=== PATIENT | male | born 1930 | race Caucasian/White ===

== ENCOUNTER → 2016-08-05 | Outpatient (CLI) | payer MEDICARE, OTHER ==
--- OUTSIDE RECORDS SUMMARY | 2016-08-05 16:00 | XMS REPORT | Continuity of Care Document ---
Author Author [facility] Organization [facility] Address Unknown Phone Unavailable Allergies Medications Problems Date Dx Coded Attending Type Code Diagnosis Diagnosed By 05/10/2015 ANAMIKA GRIMES MD Ot G46.1 05/10/2015 ANAMIKA GRIMES MD Ot G62.9 05/10/2015 ANAMIKA GRIMES MD Ot I10 05/25/2015 ANAMIKA GRIMES MD Ot G46.1 05/25/2015 ANAMIKA GRIMES MD Ot G62.9 05/25/2015 ANAMIKA GRIMES MD Ot I10 06/09/2015 ANAMIKA GRIMES MD Ot G46.1 06/09/2015 ANAMIKA GRIMES MD Ot G62.9 06/09/2015 ANAMIKA GRIMES MD Ot I10 06/22/2015 ANAMIKA GRIMES MD Ot G46.1 06/22/2015 ANAMIKA GRIMES MD Ot G62.9 06/22/2015 ANAMIKA GRIMES MD Ot I10 08/18/2015 ANAMIKA GRIMES MD Ot G46.1 08/18/2015 ANAMIKA GRIMES MD Ot G62.9 08/18/2015 ANAMIKA GRIMES MD Ot I10 09/07/2015 STERLING WATT APRN Ot R05 09/07/2015 STERLING WATT APRN Ot R53.83 09/14/2015 STERLING WATT APRN Ot R05 09/14/2015 STERLING WATT APRN Ot R53.83 Procedures Results Encounters ACCT No. Visit Date/Time Discharge Status Pt. Type Provider Facility Loc./Unit Complaint [id number] 05/09/2015 07:21:00 2014 23:59:59 CLS Outpatient ANAMIKA GRIMES MD [facility] CARD [id number] 08/18/2015 09:02:00 ACT Outpatient STERLING WATT APRN [facility] RAD
--- NOTE | 2016-08-05 16:32 | Diagnostic Imaging Report ---
EXAMINATION: PA and lateral views of the chest. INDICATION: Cough and wheezing. FINDINGS: The lungs are hyperinflated with no focal infiltrate. There is minimal interstitial scarring in the bases. The heart size is borderline enlarged. No effusion or pneumothorax. The mediastinum and tresa appear unremarkable. There are degenerative changes in the thoracic spine and suggestion of a mid thoracic spine chronic compression fracture without change from 08/18/2015. IMPRESSION: No acute process. Report given to nurse (Flavia) at 4:32 p.m. 08/05/2016/cb Dictated by: Dictated on workstation # [id number]
== END ==
LOC: RAD 15:57
PROVIDERS: ATTEND Internal Medicine
DX: R05 Cough (principal); R06.2 Wheezing
CPT/HCPCS: 71020

== ENCOUNTER → 2017-04-16 | Outpatient (CLI) | payer MEDICARE, OTHER ==
--- NOTE | 2017-04-16 11:13 | Diagnostic Imaging Report ---
EXAMINATION: Renal arterial duplex ultrasound. INDICATION: Hypertension. FINDINGS: The right kidney is 11.5 and the left kidney is 11.0 cm in length. There is no hydronephrosis or focal lesion. There is a simple appearing cyst measuring 2.3 cm in the lower pole of the right kidney. There is a 3.7 cm simple cyst in the left kidney. Along the deep cortex of the left kidney, there is a hypoechoic lesion measuring 3.3 x 2.8 cm. It has through transmission and no internal vascularity, in favor of a complicated cyst. The left renal artery proximal and mid segments are obscured. The distal segment velocity is 61 cm/s. The right renal artery velocities are 102, 104, and 72 cm/s from proximal to distal. The resistive index is in the range of 0.66 to 0.7 on the right and 0.7 to 0.71 on the left. IMPRESSION: 1. The proximal and mid segments of the left renal artery are obscured. 2. Bilateral renal lesions with one indeterminate hyperechoic mass favored to be a complicated cyst in the deep cortex of the left kidney. A renal mass protocol CT without and with intravenous contrast would be recommended for better evaluation. Dictated by: Dictated on workstation # [id number]
== END ==
LOC: RAD 09:25
PROVIDERS: ATTEND Physician Assistant
DX: N28.89 Other specified disorders of kidney and ureter (principal); N28.1 Cyst of kidney, acquired
CPT/HCPCS: 93975

== ENCOUNTER → 2017-04-21 | Outpatient (CLI) | payer MEDICARE, OTHER ==
[~2017-04-21] MED LIST: CATHETER FLUSH 10 ML SYR IV PRN; IOHEXOL 350 MG/ML 100 ML (OMNIPAQUE 350) VIAL IV ONE; NS 100 ML (IVPB) BAG IV ONE
[2017-04-21 08:49] LABS: BLOOD UREA NITROGEN 17 MG/DL (7-18); BUN/CREATININE RATIO 15; CREATININE SERUM 1.15 MG/DL (0.60-1.30); GFR ESTIMATED > 60
--- NOTE | 2017-04-21 17:54 | Diagnostic Imaging Report ---
PROCEDURE: CT abdomen with and without contrast. TECHNIQUE: Multiple contiguous axial CT images of the abdomen were obtained prior to and after intravenous administration of iodinated contrast. INDICATION: Renal mass. 100 mL of Omnipaque 350 is administered intravenously. FINDINGS: The lung bases appear unremarkable. Prominent coronary artery calcifications are seen in the left coronary artery distribution. The liver, the gallbladder, the spleen, the adrenals, and the pancreas appear unremarkable. The kidneys have symmetric enhancement and contrast excretion. There is no hydronephrosis. Bilateral renal cysts are seen up to 3.7 cm in size with no enhancing or solid components noted. These lesions were not well evaluated on prior ultrasound from 04/16/2017 due to their depth, especially the medial cystic lesion in the left kidney. CT evaluation, however, clearly demonstrates no concerning solid component. The unenhanced phase demonstrates no kidney stones. The abdominal aorta is normal in caliber. No para-aortic significantly enlarged lymph node seen. No fluid collection is noted. The osseous structures demonstrate degenerative changes in the lower thoracic and in the lower lumbar spine. IMPRESSION: Simple-appearing renal cysts. No suspicious mass. Dictated by: Dictated on workstation # [id number]
== END ==
LOC: RAD 08:14
PROVIDERS: ATTEND Internal Medicine Cardiovascular Disease
DX: N28.1 Cyst of kidney, acquired (principal)
CPT/HCPCS: 36415; 74170; 82565; 84520

== ENCOUNTER → 2017-05-12 | Outpatient (CLI) | payer MEDICARE, OTHER | LOC: EDBD → CARD 11:48 | PROVIDERS: ATTEND Physician Assistant | DX: I10 Essential (primary) hypertension (principal); E78.2 Mixed hyperlipidemia; G62.9 Polyneuropathy, unspecified | CPT/HCPCS: 93306 ==

== ENCOUNTER → 2017-07-31 | Outpatient (CLI) | payer MEDICARE, OTHER ==
--- NOTE | 2017-07-31 16:10 | Diagnostic Imaging Report ---
INDICATION: Lower respiratory infection. PA and lateral chest. FINDINGS: Heart size and pulmonary vascularity are normal. Lungs are clear. There are no effusions or pneumothoraces. IMPRESSION: Negative chest. Dictated by: Dictated on workstation # [id number]
== END ==
LOC: RAD 15:36
PROVIDERS: ATTEND Internal Medicine
DX: J22 Unspecified acute lower respiratory infection (principal)
CPT/HCPCS: 71046

== ENCOUNTER → 2017-12-11 | Outpatient (CLI) | payer MEDICARE, OTHER ==
--- NOTE | 2017-12-11 10:36 | Diagnostic Imaging Report ---
INDICATION: Wheezing and cough x 2 weeks. TIME OF EXAMINATION: 9:19 AM. COMPARISON: 07/31/2017. FINDINGS: The heart size is normal. The descending thoracic aorta is ectatic and tortuous. The pulmonary vascularity is normal. No pulmonary infiltrates are identified. No pleural effusion is identified. There is no pneumothorax. IMPRESSION: No acute cardiopulmonary process is detected. Dictated by: Dictated on workstation # [id number]
== END ==
LOC: RAD 08:47
PROVIDERS: ATTEND Physician Assistant
DX: R05 Cough (principal)
CPT/HCPCS: 71046

== ENCOUNTER → 2018-02-27 | Outpatient (CLI) | payer MEDICARE, OTHER ==
--- NOTE | 2018-02-27 15:49 | Diagnostic Imaging Report ---
Indication: Neck pain. Three views were obtained. Findings: There is straightening of the normal cervical lordosis. The vertebral body heights are well maintained. There is marked degenerative disease at C5-6, C6-7. No fracture or traumatic subluxation. The prevertebral soft tissues are within normal limits. The odontoid is intact and lateral masses are well aligned. Impression: Moderate cervical spondylosis and focal degenerative disease at C5-6 and C6-7. Dictated by: Dictated on workstation # [id number]
--- NOTE | 2018-02-27 15:50 | Diagnostic Imaging Report ---
Indication: Back pain. Findings: There is grade 2 anterolisthesis of L4 and L5. This appears be on a degenerative basis. There is degenerative disc disease at L4-5 and L5-S1. The vertebral body heights are well maintained. There is lower lumbar hypertrophic degenerative facet disease. No fracture or traumatic subluxation. Impression: Degenerative disease at L4-5 and L5-S1 with grade 2 degenerative anterolisthesis of L4 and L5. Dictated by: Dictated on workstation # [id number]
== END ==
LOC: RAD 11:06
PROVIDERS: ATTEND Chiropractor
DX: M47.816 Spondylosis without myelopathy or radiculopathy, lumbar region (principal); M43.16 Spondylolisthesis, lumbar region; M47.812 Spondylosis without myelopathy or radiculopathy, cervical region; M99.04 Segmental and somatic dysfunction of sacral region; M99.03 Segmental and somatic dysfunction of lumbar region; M99.01 Segmental and somatic dysfunction of cervical region; M99.02 Segmental and somatic dysfunction of thoracic region
CPT/HCPCS: 72040; 72100

== ENCOUNTER → 2018-04-01 | Outpatient (CLI) | payer MEDICARE, OTHER ==
[~2018-04-01] VITALS: Ht 177.8 cm; Wt 72.6 kg
[~2018-04-01] MED LIST changes: -IOHEXOL 350 MG/ML 100 ML (OMNIPAQUE 350) VIAL IV ONE; -NS 100 ML (IVPB) BAG IV ONE; +REGADENOSON 0.4 MG/5 ML SYR (LEXISCAN) IV ONE
[2018-04-01 10:36] VITALS: BP 147/82
--- NOTE | 2018-04-02 07:25 | STRESS TEST ---
DATE OF SERVICE: 04/01/2018 LEXISCAN MYOVIEW STRESS TEST REPORT REFERRING PHYSICIAN: Dr. Emerson Nuñez Baseline heart rate is 62. Baseline blood pressure is 165/97. Baseline EKG is sinus rhythm with no ischemic changes. In summary, the patient was injected with 10.34 mCi of technetium-99 Myoview and the resting images were obtained. Then, the patient received 0.4 mg of Lexiscan followed by 29.7 mCi of technetium-99 Myoview. Throughout the test, there were no EKG changes. The resting and stress images were reviewed and compared in the short axis, horizontal long axis and vertical long axis views. Review of the images showed diaphragmatic attenuation with mild decreased uptake at the mid to apical inferior lateral and anterior lateral wall. SSS is 8, SDS is 8 and TID value 1.11. On the gated images, the left ventricle appeared to be in normal size with normal contractility and calculated ejection fraction is 63%. CONCLUSION: 1. The patient tolerated the Lexiscan well. 2. Diaphragmatic attenuation with mild decreased uptake at the mid to apical inferolateral and anterolateral wall with mild reversibility. 3. Normal left ventricular size with normal contractility and calculated ejection fraction is 63%. Job ID: [id number] DocumentID: [id number] Dictated Date: 04/02/2018 06:45:15 Media Services Coordinator Date: 04/02/2018 07:24:20 Dictated By: ANAMIKA GRIMES MD
== END ==
LOC: CARD 07:52
PROVIDERS: ATTEND Physician Assistant
DX: I10 Essential (primary) hypertension (principal); E78.2 Mixed hyperlipidemia; G62.9 Polyneuropathy, unspecified
CPT/HCPCS: 78452; 93017

== ENCOUNTER 2018-04-08 06:52 | Day surgery (SDC) | payer MEDICARE, OTHER ==
[2018-04-08] VITALS (7 sets, daily range): BP systolic 105–154; BP diastolic 74–95
[~2018-04-08] VITALS: Ht 175.3 cm; Wt 70.8 kg
[2018-04-08] MEDS ORDERED: NS IV 1000 ML 1,000 ML ONE (07:00)
[2018-04-08] MEDS ORDERED: LIDOCAINE 1% INJ 20 ML 20 ML VIAL ONE (07:00)
[2018-04-08] MEDS ORDERED: HEParin (CATH LAB) 2,000 ML IV ONE (07:00)
--- OUTSIDE RECORDS SUMMARY | 2018-04-08 07:02 | XMS REPORT | Continuity of Care Document ---
Author Author [facility] Organization [facility] Address Unknown Phone Unavailable Allergies Active Description Code Type Severity Reaction Onset Reported/Identified Relationship to Patient Clinical Status Yes No Allergy Information Available [id number] Drug Allergy Unknown N/A 2016 Medications There is no data. 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 08/05/2016 ANAMIKA GRIMES MD Ot G62.9 POLYNEUROPATHY, UNSPECIFIED 08/05/2016 ANAMIKA GRIMES MD Ot I10 ESSENTIAL (PRIMARY) HYPERTENSION 08/05/2016 ALYSA, STERLING R ORTHOPEDICS PEDIATRIC PHYSICIAN Ot R05 COUGH 08/05/2016 STERLING WATT R ORTHOPEDICS PEDIATRIC PHYSICIAN Ot R53.83 OTHER FATIGUE 09/09/2016 VEL DE LA GARZA MD Ot R05 COUGH 09/09/2016 VEL DE LA GARZA MD Ot R06.2 WHEEZING 04/11/2017 TIFFANY SUAREZTH K Ot I10 ESSENTIAL (PRIMARY) HYPERTENSION 04/16/2017 ANAMIKA GRIMES MD Ot 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 04/16/2017 ANAMIKA GRIMES MD Ot G62.9 POLYNEUROPATHY, UNSPECIFIED 04/16/2017 ANAMIKA GRIMES MD Ot I10 ESSENTIAL (PRIMARY) HYPERTENSION 04/16/2017 STERLING WATT R ORTHOPEDICS PEDIATRIC PHYSICIAN Ot R05 COUGH 04/16/2017 STERLING WATT R ORTHOPEDICS PEDIATRIC PHYSICIAN Ot R53.83 OTHER FATIGUE 04/16/2017 VEL DE LA GARZA MD Ot R05 COUGH 04/16/2017 VEL DE LA GARZA MD Ot R06.2 WHEEZING 04/16/2017 TIFFANY SUAREZTH K Ot I10 ESSENTIAL (PRIMARY) HYPERTENSION 04/17/2017 YADIRA SUAREZ K Ot N28.1 CYST OF KIDNEY, ACQUIRED 04/17/2017 YADIRA SUAREZ K Ot N28.89 OTHER SPECIFIED DISORDERS OF KIDNEY AND 05/01/2017 YADIRA SUAREZ Ot N28.1 CYST OF KIDNEY, ACQUIRED 05/01/2017 TIFFANY SUAREZTH K Ot N28.89 OTHER SPECIFIED DISORDERS OF KIDNEY AND 05/02/2017 TIFFANY SUAREZTH K Ot N28.1 CYST OF KIDNEY, ACQUIRED 05/02/2017 PANTERA LAZARO YADIRA K Ot N28.89 OTHER SPECIFIED DISORDERS OF KIDNEY AND 05/13/2017 YADIRA SUAREZ K Ot E78.2 MIXED HYPERLIPIDEMIA 05/13/2017 TIFFANY SUAREZTH K Ot G62.9 POLYNEUROPATHY, UNSPECIFIED 05/13/2017 ARTEMIO SUAREZDITH K Ot I10 ESSENTIAL (PRIMARY) HYPERTENSION 05/13/2017 ANAMIKA GRIMES MD Ot N28.1 CYST OF KIDNEY, ACQUIRED 05/26/2017 SYDNEY RUTHERFORD, ANAMIKA Velasquez Ot N28.1 CYST OF KIDNEY, ACQUIRED 06/03/2017 PANTERA LAZARO, YADIRA K Ot E78.2 MIXED HYPERLIPIDEMIA 06/03/2017 PANTERA LAZARO, YADIRA K Ot G62.9 POLYNEUROPATHY, UNSPECIFIED 06/03/2017 PANTERA LAZARO, YADIRA K Ot I10 ESSENTIAL (PRIMARY) HYPERTENSION 06/12/2017 PANTERA LAZARO, YADIRA K Ot E78.2 MIXED HYPERLIPIDEMIA 06/12/2017 PANTERA LAZARO, YADIRA K Ot G62.9 POLYNEUROPATHY, UNSPECIFIED 06/12/2017 PANTERA LAZARO, YADIRA K Ot I10 ESSENTIAL (PRIMARY) HYPERTENSION 07/30/2017 ANAMIKA GRIMES MD Ot 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 07/30/2017 ANAMIKA GRIMES MD Ot G62.9 POLYNEUROPATHY, UNSPECIFIED 07/30/2017 ANAMIKA GRIMES MD Ot I10 ESSENTIAL (PRIMARY) HYPERTENSION 07/30/2017 STERLING WATT ORTHOPEDICS PEDIATRIC PHYSICIAN Ot R05 COUGH 07/30/2017 STERLING WATT ORTHOPEDICS PEDIATRIC PHYSICIAN Ot R53.83 OTHER FATIGUE 07/30/2017 HOLLI RUTHERFORD, VEL Weinstein Ot R05 COUGH 07/30/2017 HOLLI RUTHERFORD, VEL Weinstein Ot R06.2 WHEEZING 07/30/2017 PANTERA LAZARO, YADIRA K Ot E78.2 MIXED HYPERLIPIDEMIA 07/30/2017 PANTERA LAZARO, YADIRA K Ot G62.9 POLYNEUROPATHY, UNSPECIFIED 07/30/2017 PANTERA LAZARO, YADIRA K Ot I10 ESSENTIAL (PRIMARY) HYPERTENSION 07/30/2017 PANTERA LAZARO, YADIRA K Ot N28.1 CYST OF KIDNEY, ACQUIRED 07/30/2017 PANTERA LAZARO, YADIRA K Ot N28.89 OTHER SPECIFIED DISORDERS OF KIDNEY AND 07/30/2017 ANAMIKA GRIMES MD Ot N28.1 CYST OF KIDNEY, ACQUIRED 07/31/2017 ANAMIKA GRIMES MD Ot 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 07/31/2017 ANAMIKA GRIMES MD Ot G62.9 POLYNEUROPATHY, UNSPECIFIED 07/31/2017 ANAMIKA GRIMES MD Ot I10 ESSENTIAL (PRIMARY) HYPERTENSION 07/31/2017 STERLING WATT ORTHOPEDICS PEDIATRIC PHYSICIAN Ot R05 COUGH 07/31/2017 STERLING WATT ORTHOPEDICS PEDIATRIC PHYSICIAN Ot R53.83 OTHER FATIGUE 07/31/2017 VEL DE LA GARZA MD Ot R05 COUGH 07/31/2017 VEL DE LA GARZA MD Ot R06.2 WHEEZING 07/31/2017 PANTERA LAZARO, YADIRA Santo Ot E78.2 MIXED HYPERLIPIDEMIA 07/31/2017 PANTERA LAZARO, YADIRA Santo Ot G62.9 POLYNEUROPATHY, UNSPECIFIED 07/31/2017 PANTERA LAZARO, YADIRA Santo Ot I10 ESSENTIAL (PRIMARY) HYPERTENSION 07/31/2017 PANTERA LAZARO, YADIRA Santo Ot N28.1 CYST OF KIDNEY, ACQUIRED 07/31/2017 YADIRA SUAREZ Ot N28.89 OTHER SPECIFIED DISORDERS OF KIDNEY AND 07/31/2017 SYDNEY RUTHERFORD, ANAMIKA Velasquez Ot N28.1 CYST OF KIDNEY, ACQUIRED 08/01/2017 VEL DE LA GARZA MD Ot J22 UNSPECIFIED ACUTE LOWER RESPIRATORY INFE 08/26/2017 VEL DE LA GARZA MD Ot J22 UNSPECIFIED ACUTE LOWER RESPIRATORY INFE 12/12/2017 INOCENTE PA, FREDDY L Ot R05 COUGH 01/01/2018 FREDDY GARCIA L Ot R05 COUGH 02/27/2018 ANAMIKA GRIMES MD Ot 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 02/27/2018 ANAMIKA GRIMES MD Ot G62.9 POLYNEUROPATHY, UNSPECIFIED 02/27/2018 ANAMIKA GRIMES MD Ot I10 ESSENTIAL (PRIMARY) HYPERTENSION 02/27/2018 STERLING WATT ORTHOPEDICS PEDIATRIC PHYSICIAN Ot R05 COUGH 02/27/2018 STERLING WATT ORTHOPEDICS PEDIATRIC PHYSICIAN Ot R53.83 OTHER FATIGUE 02/27/2018 VEL DE LA GARZA MD Ot R05 COUGH 02/27/2018 VEL DE LA GARZA MD Ot R06.2 WHEEZING 02/27/2018 YADIRA SUAREZ Ot E78.2 MIXED HYPERLIPIDEMIA 02/27/2018 PANTERA LAZARO, YADIRA Santo Ot G62.9 POLYNEUROPATHY, UNSPECIFIED 02/27/2018 YADIRA SUAREZ Ot I10 ESSENTIAL (PRIMARY) HYPERTENSION 02/27/2018 YADIRA SUAREZ Ot N28.1 CYST OF KIDNEY, ACQUIRED 02/27/2018 YADIRA SUAREZ Ot N28.89 OTHER SPECIFIED DISORDERS OF KIDNEY AND 02/27/2018 ANAMIKA GRIMES MD Ot N28.1 CYST OF KIDNEY, ACQUIRED 02/27/2018 VEL DE LA GARZA MD Ot J22 UNSPECIFIED ACUTE LOWER RESPIRATORY INFE 02/27/2018 FREDDY GARCIA Ot R05 COUGH 03/02/2018 CHRISTINE ANDERSON, VAMSHI J 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, LUMBAR REGION 03/02/2018 CHRISTINE ANDERSON, VAMSHI J 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 03/02/2018 CHRISTINE ANDERSON, VAMSHI J Ot M47.816 SPONDYLOSIS W/O MYELOPATHY OR RADICULOPA 03/02/2018 CHRISTINE ANDERSON VAMSHI J Ot 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 03/02/2018 CHRISTINE ANDERSON VAMSHI J Ot 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 03/02/2018 CHRISTINE ANDERSON, VAMSHI J Ot 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 03/02/2018 CHRISTINE ANDERSON, VAMSHI J Ot 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 03/19/2018 CHRISTINE ANDERSON VAMSHI J 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, LUMBAR REGION 03/19/2018 CHRISTINE ANDERSON, VAMSHI J 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 03/19/2018 CHRISTINE ANDERSON VAMSHI J Ot M47.816 SPONDYLOSIS W/O MYELOPATHY OR RADICULOPA 03/19/2018 CHRISTINE ANDERSON, VAMSHI J Ot 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 03/19/2018 CHRISTINE ANDERSON VAMSHI J Ot 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 03/19/2018 CHRISTINE ANDERSON VAMSHI J Ot 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 03/19/2018 CHRISTINE ANDERSON, VAMSHI J Ot 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 04/07/2018 ANAMIKA GRIMES MD Ot 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 04/07/2018 ANAMIKA GRIMES MD Ot G62.9 POLYNEUROPATHY, UNSPECIFIED 04/07/2018 SYDNEY RUTHERFORD, ANAMIKA Velasquez Ot I10 ESSENTIAL (PRIMARY) HYPERTENSION 04/07/2018 STERLING WATT ORTHOPEDICS PEDIATRIC PHYSICIAN Ot R05 COUGH 04/07/2018 STERLING WATT ORTHOPEDICS PEDIATRIC PHYSICIAN Ot R53.83 OTHER FATIGUE 04/07/2018 VEL DE LA GARZA MD Ot R05 COUGH 04/07/2018 VEL DE LA GARZA MD Ot R06.2 WHEEZING 04/07/2018 YADIRA SUAREZ Ot E78.2 MIXED HYPERLIPIDEMIA 04/07/2018 YADIRA SUAREZ Ot G62.9 POLYNEUROPATHY, UNSPECIFIED 04/07/2018 YADIRA SUAREZ Ot I10 ESSENTIAL (PRIMARY) HYPERTENSION 04/07/2018 YADIRA SUAREZ Ot N28.1 CYST OF KIDNEY, ACQUIRED 04/07/2018 YADIRA SUAREZ Ot N28.89 OTHER SPECIFIED DISORDERS OF KIDNEY AND 04/07/2018 SYDNEY RUTHERFORD, ANAMIKA Velasquez Ot N28.1 CYST OF KIDNEY, ACQUIRED 04/07/2018 VEL DE LA GARZA MD Ot J22 UNSPECIFIED ACUTE LOWER RESPIRATORY INFE 04/07/2018 FREDDY GARCIA Ot R05 COUGH 04/07/2018 VAMSHI KING DC 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, LUMBAR REGION 04/07/2018 VAMSHI KING DC 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 Results There is no data. Encounters ACCT No. Visit Date/Time Discharge Status Pt. Type Provider Facility Loc./Unit Complaint [id number] 04/01/2018 07:52:00 04/01/2018 23:59:59 CLS Outpatient YADIRA SUAREZ [facility] CARD CAROTID ARTERY STENOSIS,HTN,HYPERLIPIDEMIA,NEUROPA [id number] 02/27/2018 11:06:00 02/27/2018 23:59:59 CLS Outpatient VAMSHI KING DC [facility] RAD M54.5 [id number] 12/11/2017 08:47:00 12/11/2017 23:59:59 CLS Outpatient FREDDY GARCIA [facility] RAD COUGH,WHEEZING [id number] 07/31/2017 15:36:00 07/31/2017 23:59:59 CLS Outpatient VEL DE LA GARZA MD [facility] RAD COUGH [id number] 05/12/2017 11:48:00 05/12/2017 23:59:59 CLS Outpatient YADIRA SUAREZ [facility] CARD HTN [id number] 04/21/2017 08:14:00 04/21/2017 23:59:59 CLS Outpatient ANAMIKA GRIMES MD [facility] RAD RENAL MASS [id number] 04/16/2017 09:25:00 04/16/2017 23:59:59 CLS Outpatient YADIRA SUAREZ [facility] RAD HTN I10 [id number] 08/05/2016 15:57:00 08/05/2016 23:59:59 CLS Outpatient VEL DE LA GARZA MD [facility] RAD COUGH,WHEEZING [id number] 08/18/2015 09:02:00 08/18/2015 23:59:59 CLS Outpatient STERLING WATT APRN [facility] RAD CHRONIC COUGH [id number] 05/09/2015 07:21:00 05/09/2015 23:59:59 CLS Outpatient ANAMIKA GRIMES MD [facility] CARD HTN,TIA [id number] 04/08/2018 09:00:00 PEN Preadmit ANAMIKA GRIMES MD [facility] CATH ABN STRESS TEST
[2018-04-08] MEDS ORDERED: NS IV 1000 ML 1,000 ML IV SCH (07:15)
[2018-04-08 07:37] LABS: HEMOGLOBIN 14.4 G/DL (13.3-17.7); MEAN PLATELET VOLUME 8.5 FL (7.4-10.4); RED BLOOD COUNT 4.22 10^6/uL (4.35-5.85); RED CELL DISTRIBUTION WIDTH 12.4 % (10.0-14.5); WHITE BLOOD COUNT 8.1 10^3/uL (4.3-11.0)
[2018-04-08] MEDS ORDERED: METO-351 PO (07:46)
[2018-04-08] MEDS ORDERED: MULT-646 PO (07:46)
[2018-04-08] MEDS ORDERED: OMG1KC PO (07:46)
[2018-04-08] MEDS ORDERED: BENAZEPRIL PO (07:46)
[2018-04-08] MEDS ORDERED: DOCU250C11 PO ×2 (07:46)
[2018-04-08] MEDS ORDERED: HYDR25TA4 PO (07:46)
[2018-04-08] MEDS ORDERED: GABA-488 PO ×2 (07:46)
[2018-04-08] MEDS ORDERED: TRAZ-189 PO (07:46)
[2018-04-08] MEDS ORDERED: CHOL10007 PO (07:46)
[2018-04-08] MEDS ORDERED: AMLODIPINE PO (07:46)
[2018-04-08] MEDS ORDERED: ASPI-983 PO (07:46)
[2018-04-08 07:47] LABS: INR 1.1 (0.8-1.4); PROTHROMBIN TIME PATIENT 14.6 SEC (12.2-14.7)
--- NOTE | 2018-04-08 07:50 | Diagnostic Imaging Report ---
INDICATION: Hypertension, hyperlipidemia, wheezing and coughing. TECHNIQUE: Single view chest 7:30 AM. CORRELATION STUDY: 12/11/2017 FINDINGS: Heart size is enlarged. Mediastinum is prominent with a tortuous course of the thoracic aorta. Vasculature within normal limits. Findings are generally stable. The lungs are clear with no consolidating infiltrate. There is no significant effusion or pneumothorax. IMPRESSION: 1. Stable chest demonstrates no acute abnormality. Dictated by: Dictated on workstation # [id number]
[2018-04-08 07:53] LABS: ALANINE AMINOTRANSFERASE 27 U/L (0-55); ALBUMIN 4.8 GM/DL (3.2-4.5); ALKALINE PHOSPHATASE 45 U/L (40-136); BILIRUBIN,TOTAL 1.3 MG/DL (0.1-1.0); BUN/CREATININE RATIO 15; CALCIUM 9.5 MG/DL (8.5-10.1); CARBON DIOXIDE 23 MMOL/L (21-32); CHLORIDE 93 MMOL/L (98-107); CHOLESTEROL 145 MG/DL (< 200); CREATININE SERUM 0.96 MG/DL (0.60-1.30); GFR ESTIMATED > 60; GLUCOSE 95 MG/DL (70-105); HDL CHOLESTEROL 46 MG/DL (40-60); POTASSIUM 3.8 MMOL/L (3.6-5.0); SODIUM 128 MMOL/L (135-145); TOTAL PROTEIN 7.7 GM/DL (6.4-8.2); TRIGLYCERIDES 77 MG/DL (<150); VLDL CHOLESTEROL 15 MG/DL (5-40)
[2018-04-08] MEDS ORDERED: MIDAZOLAM 5 MG/5 ML (VERSED) VIAL ONE (09:08)
[2018-04-08] MEDS ORDERED: HEParin 1000 UNIT/ML (10ML VIAL) FOR BOLUS ONE (09:08)
[2018-04-08] MEDS ORDERED: fentaNYL INJECTION 100 MCG/2 ML AMP ONE (09:08)
--- NOTE | 2018-04-08 09:43 | Cardiac Procedure Note-CS/ASA ---
Pre-Procedure Note Pre-Op Procedure Note H&P Reviewed The H&P was reviewed, patient examined and no changes noted. Date H&P Reviewed: Apr 08, 2018 Time H&P Reviewed: 09:43 Conscious Sedation Pre-Proced Time 09:43 ASA Score 3 For ASA 3 and 4: Consider anesthesia and medical clearance. Also, for patients with a history of failed moderate sedation consider anesthesia. Airway Lungs Heart ASA score ASA 1: a normal healthy patient ASA 2: a patient with a mild systemic disease (mid diabetes, controlled hypertension, obesity x ASA 3: a patient with a severe systemic disease that limits activity (angina , COPD, prior Myocardial infarction) ASA 4: a patient with an incapacitating disease that is a constant threat to life (CHF, renal failure) ASA 5: a moribund patient not expected to survive 24 hrs. (ruptured aneurysm) ASA 6: a declared brain patient whose organs are being harvested. For emergent operations, add the letter E after the classification Mallampati Classification Grade 3 Sedation Plan Analgesia, Amnesia, Plan communicated to team members, Discussed options with patient/fam, Discussed risks with patient/fam The patient is an appropriate candidate to undergo the planned procedure, sedation, and anesthesia. The patient immediately re-assessed prior to indication. ANAMIKA GRIMES MD Apr 08, 2018 09:43
[2018-04-08] MEDS ORDERED: NITRO DRIP 25000 MCG/D5W 250 ML IV ONE (09:57)
[2018-04-08] MEDS ORDERED: TICAGRELOR 90 MG TABLET (BRILINTA) PO ONE (10:13)
[2018-04-08] MEDS ORDERED: ASPIRIN 325 MG (5 GR) TABLET ONE (10:13)
--- NOTE | 2018-04-08 10:28 | Cardiac Cath Report ---
Cardiac Cath Report Physician (s)/Collar Sewer (s) Physician ANAMIKA GRIMES MD Pre-Procedure Diagnosis Pre-Procedure Diagnosis: Coronary artery disease Post-Procedure Note Procedure Start Date: Apr 08, 2018 Name of Procedure: Left heart catheterization Left ventriculogram Aortic root angiogram Stenting to the LAD Findings/Procedure Note PROCEDURE NOTE: After explaining the procedure to the patient, all pros and cons were explained , all questions were answered. The patient signed the consent and then he was placed on the cardiac catheterization laboratory. Groin was prepped SL fashion local anesthesia was used. Sheath placed in the right femoral artery. Kamila right and left catheter were used to access the coronary system. Pigtail was used to access the left ventricular cavity. Left ventriculogram was not done Aortic root angiogram was done Patient has severe stenosis at the mid to distal LAD, I given 6000 units of heparin, I attempted to intubate the LAD using FL 45 without success, I was able to advance Voda 4.0 guide to the LAD. BMW wire was advanced and parked distally. Then I proceeded with primary stenting using Dora 2.5 x 15 millimeter, parked carefully. Multiple views were obtained. Then it was inflated under 15 les to 2.77 mm with excellent results. Angiogram showed resolution of the obstruction with no residual stenosis, mild disease distally At the end of the procedure the sheath was removed. Closure device was used FINDINGS: Hemodynamics LV 119/12, end-diastolic pressure of 12 Aorta 117/65 mean of 85 ANATOMY: Left Main is extremely short, almost separate ostium of the LAD and circumflex artery Left Anterior Descending is moderate in size, wrap around the apex, moderate to severe stenosis at the mid to distal portion successful primary stenting using Dora drug-eluting stent 2.515 mm expanded to 2.7 mm with excellent results with no residual stenosis Left Circumflex is moderate in size, nondominant artery with no obstructive disease Right Coronory Artery is moderate in size, dominant artery with mild disease at the midportion nonobstructive disease LV Gram was not done, pressure was measured Aorta evaluation done with aortic root angiogram, prominent aortic root and ascending aorta, mild ectasia, no dissection. CONCLUSION: 1. Severe stenosis at the mid to distal LAD successful primary stenting using Dora 2.515 mm expanded to 2.77 mm with excellent results with no residual stenosis, mild disease at the distal LAD, the LAD is wrap around the apex codominant vessel 2. Mild disease in the dominant right coronary artery, nonobstructive disease, nondominant circumflex artery 3. Prominent aortic root and ascending aorta, mild ectasia. Monitoring with serial CT angiogram is recommended DISCUSSION AND RECOMMENDATION: I will continue maximizing medical therapy, patient was started on aspirin and Brilinta Anesthesia Type: Conscious Sedation Estimated blood loss (mL): 25 ml Contrast Amount: 128 ml Total Radiation Dose: 910 mGy Post-Procedure Diagnosis Post-operative diagnosis: Coronary artery disease Hypertension Hyperlipidemia History of TIA ANAMIKA GRIMES MD Apr 08, 2018 10:28
[2018-04-08] MEDS ORDERED: PATIENT MAY USE OWN MEDS, ALL PO SCH (10:30)
[2018-04-08] MEDS ORDERED: NON-FORMULARY MEDICATION 1 EA EA (Metoprolol Succinate (Toprol Xl) 25 MG) PO SCH (10:30)
[2018-04-08] MEDS: OMEGA 3 (FISH OIL) 1000 MG CAP PO SCH (18:53)
[2018-04-08] MEDS: NS IV 1000 ML 1,000 ML IV SCH ×2 (18:53→21:59)
[2018-04-08] MEDS: TICAGRELOR 90 MG TABLET (BRILINTA) PO SCH (20:35)
[2018-04-08] MEDS ORDERED: GABAPENTIN 300 MG (NEURONTIN) CAP PO SCH (21:00)
[2018-04-08] MEDS ORDERED: traZODone 50 MG (DESYREL) TAB PO SCH (21:00)
[2018-04-09] VITALS: BP 124/82
[2018-04-09 04:00] VITALS: BP 144/88
[2018-04-09 04:35] LABS: HEMOGLOBIN 14.5 G/DL (13.3-17.7); MEAN PLATELET VOLUME 8.8 FL (7.4-10.4); RED BLOOD COUNT 4.41 10^6/uL (4.35-5.85); RED CELL DISTRIBUTION WIDTH 12.9 % (10.0-14.5); WHITE BLOOD COUNT 12.8 10^3/uL (4.3-11.0)
[2018-04-09 04:54] LABS: BUN/CREATININE RATIO 14; CARBON DIOXIDE 20 MMOL/L (21-32); CHLORIDE 99 MMOL/L (98-107); CREATININE SERUM 0.86 MG/DL (0.60-1.30); GFR ESTIMATED > 60; GLUCOSE 109 MG/DL (70-105); POTASSIUM 3.9 MMOL/L (3.6-5.0); SODIUM 130 MMOL/L (135-145)
[2018-04-09] MEDS: OMEGA 3 (FISH OIL) 1000 MG CAP PO SCH (06:37)
[2018-04-09] MEDS: NS IV 1000 ML 1,000 ML IV SCH (07:43)
--- NOTE | 2018-04-09 07:44 | Cardiology Progress Note ---
Subjective Date Seen by Provider: Apr 09, 2018 Time Seen by Provider: 07:41 Subjective/Events-last exam Patient is feeling well, denied any chest pain or shortness of breath, groin is healing well Review of Systems General: No Chills, No Night Sweats, No Fatigue, No Malaise, No Appetite, No Other HEENT: No Head Aches, No Visual Changes, No Eye Pain, No Ear Pain, No Dysphasia , No Sinus Congestion, No Post Nasal Drip, No Sore Throat, No Other Pulmonary: No Dyspnea, No Cough, No Pleuritic Chest Pain, No Other Cardiovascular: No: Chest Pain, Palpitations, Orthopnea, Paroxysmal Noc. Dyspnea, Edema, Lt Headedness, Other Objective-Cardiology Exam Last Set of Vital Signs Vital Signs Capillary Refill : Less Than 3 Seconds I&O Intake and Output 04/09/18 00:00 Intake Total 620 ml Output Total 1050 ml Balance -430 ml Intake Oral 620 ml Output Urine Total 1050 ml Daily Weight Change No General: Alert, Oriented X3, Cooperative HEENT: Atraumatic, PERRLA Neck: Supple, No JVD, No Thyromegaly Lungs: Clear to Auscultation, Normal Air Movement Heart: Regular Rate, Normal S1, Normal S2, No Murmurs Abdomen: Normal Bowel Sounds, Soft, No Tenderness, No Hepatosplenomegaly, No Masses Extremities: No Clubbing, No Cyanosis, No Edema, Normal Pulses, No Tenderness/ Swelling Skin: No Rashes, No Breakdown, No Significant Lesion Neuro: Normal Gait, Normal Speech, Strength at 5/5 X4 Ext, Normal Tone, Sensation Intact Psych/Mental Status: Mental Status NL, Mood NL Results Lab Laboratory Tests 04/09/18 04:06 04/09/18 04:10 A/P-Cardiology Admission Diagnosis Chest pain nonspecific etiology Coronary artery disease Hypertension Hyperlipidemia Assessment/Plan Chest pain nonspecific urology reporting improvement. Continue to monitor Coronary artery disease status post cardiac catheterization and stent as described below 1. Severe stenosis at the mid to distal LAD successful primary stenting using Dora 2.515 mm expanded to 2.77 mm with excellent results with no residual stenosis, mild disease at the distal LAD, the LAD is wrap around the apex codominant vessel 2. Mild disease in the dominant right coronary artery, nonobstructive disease, nondominant circumflex artery 3. Prominent aortic root and ascending aorta, mild ectasia. Monitoring with serial CT angiogram is recommended Educated about compliance with medication especially aspirin and Brilinta Prominent aortic root with ectasia, recommend monitoring serial CT angiogram as an outpatient Hypertension, continue current medications Hyperlipidemia, continue current medications Clinical Quality Measures DVT/VTE Risk/Contraindication: Risk Factor Score Per Nursin RFS Level Per Nursing on Admit: 4+=Very High ANAMIKA GRIMES MD Apr 09, 2018 07:43
[2018-04-09 08:00] VITALS: BP 155/86
[2018-04-09] MEDS ORDERED: TICA90TA PO (08:59)
[2018-04-09] MEDS ORDERED: HYDROCHLOROTHIAZIDE 25 MG (HCTZ) TAB PO SCH (09:00)
[2018-04-09] MEDS ORDERED: NON-FORMULARY MEDICATION 1 EA EA (Hydrochlorothiazide 25 MG) PO SCH (09:00)
[2018-04-09] MEDS ORDERED: ASPIRIN E.C. 81 MG (ECOTRIN) TAB PO SCH (09:00)
--- NOTE | 2018-04-09 09:00 | Discharge Inst-Post CATH ---
Discharge Inst-CATH Post Cardiac Cath D/C Inst Follow Up/Plan Appointment with Dr Sanchez's office in 2-4 weeks CARDIAC CATH DISCHARGE INSTRUCTIONS *Hold Metformin for 48 hours post heart cath. ACTIVITY * Go Home directly and rest. * Limit activity of the leg (or wrist if it was used) for 7 days including aerobics, swimming, jogging, bicycling, etc. * Restrict stair-climbing for 7 days if possible, if not, climb up with your non -cath leg, then bring together on the same step. * Avoid lifting, pushing, pulling or excessive movement of the affected extremity for 7 days. * Customary sexual activity may be resumed after 2 days-use caution not to use a position that strains or causes pain to the affected extremity. * No driving for 24 hours. * NO SMOKING. * Avoid straining for bowel movements for 7 days. * Gentle walking on level ground is allowed. * Returning to work will depend on the type of procedure and the results. Your doctor will discuss this with you. CALL YOUR DOCTOR FOR ANY OF THE FOLLOWING: *If bleeding from the puncture site occurs- Apply gentle pressure to site with clean cloth and call your doctor or EMS. * If a knot or lump forms under the skin, increases in size, or causes pain. * If bruising appears to be worsening or moving further down your leg instead of disappearing. * Temperature above 101 F. CARE OF YOUR GROIN INCISION; * Bruising or purple discoloration of the skin near the puncture site is common. * You may shower only, no bathtub bathing for 5 days. Be careful to avoid slipping as your leg may feel stiff. * If a closure device was used on your femoral artery, please see the attached guide regarding care of the device and your leg. * Leave the dressing on, until removed by office staff. CARE OF YOUR WRIST INCISION; * Bruising or purple discoloration of the skin near the puncture site is common. * You may shower. * DO NOT submerge wrist. * Leave dressing on, until removed by office staff.. ANAMIKA SANCHEZ MD Apr 09, 2018 9:00 am
[2018-04-09] MEDS: TICAGRELOR 90 MG TABLET (BRILINTA) PO SCH (09:54)
[2018-04-09 10:45] VITALS: BP 155/86
== END 2018-04-09 10:45 | disposition home or self-care (01) ==
LOC: CATH 06:52 → ICU 11:02 → 4TH 04-09 02:56 → CATH 04-09 10:45
PROVIDERS: ATTEND Internal Medicine Cardiovascular Disease
DX: I25.10 Atherosclerotic heart disease of native coronary artery without angina pectoris (principal); I10 Essential (primary) hypertension; E78.2 Mixed hyperlipidemia; I65.29 Occlusion and stenosis of unspecified carotid artery; I45.10 Unspecified right bundle-branch block; G62.9 Polyneuropathy, unspecified; Z86.73 Personal history of transient ischemic attack (TIA), and cerebral infarction without residual deficits; Z79.899 Other long term (current) drug therapy
CPT/HCPCS: 36415; 71045; 80048; 80053; 80061; 85027; 85610; 85730; 87081; 93005; 93458; 93567

== ENCOUNTER → 2018-04-29 | Outpatient (CLI) | payer MEDICARE, OTHER ==
[~2018-04-29] VITALS: Ht 177.8 cm; Wt 72.1 kg
[~2018-04-29] MED LIST changes: +AMLODIPINE PO; +ASPI-983 PO; +BENAZEPRIL PO; +CHOL10007 PO; +DOCU250C11 PO; +GABA-488 PO; +HYDR25TA4 PO; +METO-351 PO; +MULT-646 PO; +OMG1KC PO; +TICA90TA PO; +TRAZ-189 PO
[2018-04-29 09:09] VITALS: BP 131/93
[2018-04-29 09:10] VITALS: BP 126/83
--- NOTE | 2018-04-29 15:08 | STRESS TEST ---
DATE OF SERVICE: 04/29/2018 LEXISCAN MYOVIEW STRESS TEST REPORT REFERRING PHYSICIAN: Dr. Nuñez. Baseline heart rate is 72. Baseline blood pressure is 151/93. Baseline EKG is sinus rhythm with frequent atrial and ventricular premature contractions. In summary, the patient was injected with 8.54 mCi of technetium-99 Myoview and the resting images were obtained. Then, the patient received 0.4 mg of Lexiscan followed by 26.9 mCi of technetium-99 Myoview. Throughout the test, there were no EKG changes. The resting and stress images were reviewed and compared in the short axis, horizontal long axis and vertical long axis views. Review of the images showed mild apical thinning with no significant ischemia or infarction. SSS is 4, SDS 0 and TID value 1.07. On the gated images, the left ventricle appeared to be normal size with subtle hypokinesia at the lateral wall. Calculated ejection fraction is 63%. CONCLUSION: 1. The patient tolerated the Lexiscan well. 2. Baseline right bundle branch block with frequent atrial and ventricular premature contractions. 3. Apical thinning with no significant ischemia or infarction on SPECT images. 4. Normal left ventricular size with mild hypokinesia at the lateral wall and anterolateral wall. Calculated ejection fraction is 63%. Job ID: [id number] DocumentID: [id number] Dictated Date: 04/29/2018 14:43:56 Dynamic Balancer Set Up Worker Date: 04/29/2018 15:07:59 Dictated By: ANAMIKA GRIMES MD
== END ==
LOC: CARD 06:47
PROVIDERS: ATTEND Physician Assistant
DX: I10 Essential (primary) hypertension (principal); E78.2 Mixed hyperlipidemia; G45.9 Transient cerebral ischemic attack, unspecified
CPT/HCPCS: 78452; 93017

== ENCOUNTER 2018-06-19 15:40 | Outpatient (RCR) | payer MEDICARE, OTHER ==
[~2018-06-19 15:40] MED LIST changes: -CATHETER FLUSH 10 ML SYR IV PRN; -REGADENOSON 0.4 MG/5 ML SYR (LEXISCAN) IV ONE
== END 2018-08-09 | disposition home or self-care (01) ==
LOC: CR 15:40
PROVIDERS: ATTEND Internal Medicine Cardiovascular Disease
DX: Z48.812 Encounter for surgical aftercare following surgery on the circulatory system (principal); Z95.5 Presence of coronary angioplasty implant and graft
CPT/HCPCS: 93798

== ENCOUNTER 2018-10-27 08:13 | Inpatient (IN) | payer MEDICARE, OTHER ==
[~2018-10-27] VITALS: Ht 175.3 cm; Wt 73.5 kg
[~2018-10-27 08:13] MED LIST changes: -TRAZ-189 PO; +TRAZ-222 PO
[2018-10-27 08:35] LABS: BASOPHILS % (AUTO) 0 % (0-10); EOSINOPHILS # (AUTO) 0.1 10^3/uL (0.0-0.3); EOSINOPHILS % (AUTO) 1 % (0-10); HEMATOCRIT 37 % (40-54); HEMOGLOBIN 12.3 G/DL (13.3-17.7); LYMPHOCYTES # (AUTO) 1.9 X 10^3 (1.0-4.0); LYMPHOCYTES % (AUTO) 14 % (12-44); MEAN CORPUSCULAR HEMOGLOBIN 31 PG (25-34); MEAN CORPUSCULAR HGB CONC 34 G/DL (32-36); MEAN CORPUSCULAR VOLUME 93 FL (80-99); MEAN PLATELET VOLUME 9.3 FL (7.4-10.4); MONOCYTES # (AUTO) 0.8 X 10^3 (0.0-1.0); MONOCYTES % (AUTO) 6 % (0-12); NEUTROPHILS # (AUTO) 10.5 X 10^3 (1.8-7.8); NEUTROPHILS % (AUTO) 79 % (42-75); PLATELET COUNT 258 10^3/uL (130-400); RED CELL DISTRIBUTION WIDTH 11.9 % (10.0-14.5); WHITE BLOOD COUNT 13.3 10^3/uL (4.3-11.0)
[2018-10-27] MEDS ORDERED: NS IV 1000 ML 1,000 ML IV ONE ×2 (08:42→09:15)
[2018-10-27] MEDS ORDERED: ONDANSETRON 4 MG/2 ML (SDV) Z0FRAN IVP ONE (08:45)
[2018-10-27] MEDS ORDERED: FAMOTIDINE 20MG/2ML IV (PEPCID) IVP ONE (08:45)
[2018-10-27] MEDS ORDERED: PANTOPRAZOLE 40 MG (PROTONIX) VIAL IV ONE (08:45)
[2018-10-27 08:53] LABS: INR 1.2 (0.8-1.4); PROTHROMBIN TIME PATIENT 15.3 SEC (12.2-14.7)
[2018-10-27 09:02] LABS: ALBUMIN 4.4 GM/DL (3.2-4.5); BILIRUBIN,TOTAL 0.7 MG/DL (0.1-1.0); CALCIUM 9.7 MG/DL (8.5-10.1); CREATININE SERUM 1.26 MG/DL (0.60-1.30); POTASSIUM 4.1 MMOL/L (3.6-5.0); TOTAL PROTEIN 7.4 GM/DL (6.4-8.2)
--- NOTE | 2018-10-27 09:18 | ED GI ---
General Chief Complaint: Abdominal/GI Problems Stated Complaint: WEAKNESS;VOMITING BLOOD;LOWER ABD PAIN Nursing Triage Note: pt woke up this am with 3-4 episode of blood in vomit. pt denies syncope. pt states he has had dizziness and lightheadness. pt c/o rlq intermittent. pt denies etoh or smoking. pt states taking blood thinners for previous stroke and heart stent. pt denies syncopal episode or recent loc or hitting head. pt denies fall. pt alert and orient. abd soft and non tender. pt denies dark tarry stools. pt denies difficulty urinating or blood in urine. Sepsis Screen: No Definite Risk Source of Information: Patient Exam Limitations: No Limitations History of Present Illness Date Seen by Provider: October 27, 2018 Time Seen by Provider: 08:16 Initial Comments This 87-year-old gentleman presents to the emergency room with complaints of bloody emesis 3 this morning. Blood was dark red and black. He has been having dizziness and weakness recently as well. His weakness has been present for several months. Patient had a cardiac stent placed in March and is presently on Plavix. He complains of left lower quadrant pain and tenderness intermittently for the past 2-3 weeks. He has mild tenderness in the left lower quadrant now. He does have a history of diverticulitis. Patient is nauseated and lightheaded at present. He denies any changes to his stools. Last doses of aspirin and Plavix were taken this morning. He did not vomit after taking them. Allergies and Home Medications Allergies Coded Allergies: codeine (Verified Allergy, Unknown, 04/08/18) Home Medications Aspirin 81 Mg Tablet.dr, 81 MG PO DAILY, (Reported) Cholecalciferol (Vitamin D3) 1,000 Unit Capsule, 1,000 UNIT PO SUPPER, (Reported ) Docusate Sodium 250 Mg Capsule, 250 MG PO NOON, (Reported) Docusate Sodium 250 Mg Capsule, 250 MG PO HS, (Reported) Gabapentin 300 Mg Capsule, 300 MG PO SUPPER, (Reported) Gabapentin 300 Mg Capsule, 600 MG PO HS, (Reported) Hydrochlorothiazide 25 Mg Tablet, 25 MG PO DAILY, (Reported) Metoprolol Succinate 25 Mg Tab.er.24h, 25 MG PO SUPPER, (Reported) Multivits, W-,Other Min 1 Each Tablet, 1 EACH PO DAILY, (Reported) Glenn 3 Polyunsat Fatty Acids 1,000 Mg Cap, 1,000 MG PO NOON, (Reported) Ticagrelor 90 Mg Tablet, 90 MG PO BID Prescribed by: ANAMIKA SANCHEZ on 04/09/18 0859 Trazodone HCl 50 Mg Tablet, 50 MG PO HS, (Reported) [Amlod-Benaz 5-40MG] , 1 CAP PO DAILY, (Reported) Patient Home Medication List Home Medication List Reviewed: Yes Review of Systems Review of Systems Constitutional: see HPI, weakness EENTM: No Symptoms Reported Respiratory: No Symptoms Reported Cardiovascular: See HPI Gastrointestinal: See HPI Genitourinary: No Symptoms Reported Musculoskeletal: no symptoms reported Skin: no symptoms reported Psychiatric/Neurological: No Symptoms Reported Endocrine: No Symptoms Reported Hematologic/Lymphatic: No Symptoms Reported Past Qbsdmqx-Fvjwgr-Monzzh Hx Past Med/Social Hx: Reviewed and Corrections made Patient Social History Alcohol Use: Denies Use Recreational Drug Use: No Smoking Status: Never a Smoker 2nd Hand Smoke Exposure: No Recent Foreign Travel: No Contact w/Someone Who Travel: No Recent Infectious Disease Expo: No Recent Hopitalizations: No Physical Abuse: No Sexual Abuse: No Mistreated: No Fear: No Immunizations Up To Date Date of Pneumonia Vaccine: Apr 08, 2015 Date of Influenza Vaccine: Mar 25, 2018 Seasonal Allergies Seasonal Allergies: No Past Medical History Surgeries: Yes (HERNIA BILAT) Abdominal (hernia), Coronary Stent Respiratory: No Cardiac: Yes Coronary Artery Disease, Hypertension Neurological: Yes Stroke Genitourinary: No Gastrointestinal: Yes Abdominal Hernia, Diverticulosis (with diverticulitis) Musculoskeletal: No Endocrine: No HEENT: No Cancer: No Psychosocial: No Integumentary: No Blood Disorders: No Adverse Reaction/Blood Tranf: No Physical Exam Vital Signs Vital Signs - First Documented 10/27/18 08:30 Temp 97.7 Pulse 112 Resp 18 B/P (MAP) 137/101 (113) Pulse Ox 99 O2 Delivery Room Air Capillary Refill : Less Than 3 Seconds Height/Weight/BMI Height: 5'9.00" Weight: 162lbs. 0.0oz. 73.170399dx; 22.8 BMI Method:Stated General Appearance: WD/WN, no apparent distress HEENT: PERRL/EOMI, normal ENT inspection, pharynx normal Neck: normal inspection Respiratory: lungs clear, normal breath sounds, no respiratory distress, no accessory muscle use Cardiovascular: no edema, no murmur, tachycardia (regular) Gastrointestinal: normal bowel sounds, soft, tenderness (mild in the left lower quadrant) Extremities: normal inspection, no pedal edema Neurologic/Psychiatric: order administrator II-XII nml as tested, no motor/sensory deficits, alert, normal mood/affect, oriented x 3 Skin: normal color, warm/dry Progress/Results/Core Measures Results/Orders Lab Results Laboratory Tests Test 10/27/18 08:17 10/27/18 08:27 Range/Units Urine Color YELLOW Urine Clarity CLEAR Urine pH 6.5 5-9 Urine Specific [place] 1.015 L 1.016-1.022 Urine Protein 1+ H NEGATIVE Urine Glucose (UA) 2+ H NEGATIVE Urine Ketones 2+ H NEGATIVE Urine Nitrite NEGATIVE NEGATIVE Urine Bilirubin NEGATIVE NEGATIVE Urine Urobilinogen NORMAL NORMAL MG/DL Urine Leukocyte Esterase NEGATIVE NEGATIVE Urine RBC (Auto) NEGATIVE NEGATIVE Urine RBC RARE /HPF Urine WBC RARE /HPF Urine Squamous Epithelial Cells NONE /HPF Urine Crystals NONE /LPF Urine Bacteria NEGATIVE /HPF Urine Casts NONE /LPF Urine Mucus NEGATIVE /LPF Urine Culture Indicated NO White Blood Count 13.3 H 4.3-11.0 10^3/uL Red Blood Count 3.93 L 4.35-5.85 10^6/uL Hemoglobin 12.3 L 13.3-17.7 G/DL Hematocrit 37 L 40-54 % Mean Corpuscular Volume 93 80-99 FL Mean Corpuscular Hemoglobin 31 25-34 PG Mean Corpuscular Hemoglobin Concent 34 32-36 G/DL Red Cell Distribution Width 11.9 10.0-14.5 % Platelet Count 258 130-400 10^3/uL Mean Platelet Volume 9.3 7.4-10.4 FL Neutrophils (%) (Auto) 79 H 42-75 % Lymphocytes (%) (Auto) 14 12-44 % Monocytes (%) (Auto) 6 0-12 % Eosinophils (%) (Auto) 1 0-10 % Basophils (%) (Auto) 0 0-10 % Neutrophils # (Auto) 10.5 H 1.8-7.8 X 10^3 Lymphocytes # (Auto) 1.9 1.0-4.0 X 10^3 Monocytes # (Auto) 0.8 0.0-1.0 X 10^3 Eosinophils # (Auto) 0.1 0.0-0.3 10^3/uL Basophils # (Auto) 0.0 0.0-0.1 10^3/uL Prothrombin Time 15.3 H 12.2-14.7 SEC INR Comment 1.2 0.8-1.4 Activated Partial Thromboplast Time 30 24-35 SEC Sodium Level 136 135-145 MMOL/L Potassium Level 4.1 3.6-5.0 MMOL/L Chloride Level 101 98-107 MMOL/L Carbon Dioxide Level 24 21-32 MMOL/L Anion Gap 11 5-14 MMOL/L Blood Urea Nitrogen 47 H 7-18 MG/DL Creatinine 1.26 0.60-1.30 MG/DL Estimat Glomerular Filtration Rate 54 BUN/Creatinine Ratio 37 Glucose Level 150 H 70-105 MG/DL Calcium Level 9.7 8.5-10.1 MG/DL Corrected Calcium 9.4 8.5-10.1 MG/DL Total Bilirubin 0.7 0.1-1.0 MG/DL Aspartate Amino Transf (AST/SGOT) 16 5-34 U/L Alanine Aminotransferase (ALT/SGPT) 14 0-55 U/L Alkaline Phosphatase 61 40-136 U/L Total Protein 7.4 6.4-8.2 GM/DL Albumin 4.4 3.2-4.5 GM/DL Lipase 5 L 8-78 U/L My Orders Orders - EMELI SWENSON MD Cbc With Automated Diff (10/27/18 08:16) Comprehensive Metabolic Panel (10/27/18 08:16) Lipase (10/27/18 08:16) Protime With Inr (10/27/18 08:16) Partial Thromboplastin Time (10/27/18 08:16) Ed Iv/Invasive Line Start (10/27/18 08:16) Ua Culture If Indicated (10/27/18 08:17) Famotidine Injection (Pepcid Injection) (10/27/18 08:45) Pantoprazole Injection (Protonix Injecti (10/27/18 08:45) Ondansetron Injection (Zofran Injectio (10/27/18 08:45) Ns Iv 1000 Ml (Sodium Chloride 0.9%) (10/27/18 08:42) Ns Iv 1000 Ml (Sodium Chloride 0.9%) (10/27/18 09:15) Ct Abdomen/Pelvis W (10/27/18 09:15) Red Cells Leukocytes Reduced (10/27/18 12:08) Type And Screen (10/27/18 12:08) Medications Given in ED Current Medications Medications Dose Ordered Sig/Alirio Route Start Time Stop Time Status Last Admin Dose Admin Famotidine 20 mg ONCE ONCE IVP 10/27/18 08:45 10/27/18 08:46 DC 10/27/18 08:54 20 MG Ondansetron HCl 8 mg ONCE ONCE IVP 10/27/18 08:45 10/27/18 08:46 DC 10/27/18 08:53 8 MG Pantoprazole 80 mg ONCE ONCE IV 10/27/18 08:45 10/27/18 08:46 DC 10/27/18 08:54 80 MG Sodium Chloride 1,000 ml @ 0 mls/hr Q0M ONCE IV 10/27/18 08:42 10/27/18 08:44 DC 10/27/18 08:53 0 MLS/HR Sodium Chloride 1,000 ml @ 0 mls/hr Q0M ONCE IV 10/27/18 09:15 10/27/18 09:16 DC 10/27/18 09:26 0 MLS/HR Vital Signs/I&O 10/27/18 08:30 Temp 97.7 Pulse 112 Resp 18 B/P (MAP) 137/101 (113) Pulse Ox 99 O2 Delivery Room Air Blood Pressure Mean: 113 Progress Progress Note #1: Time: 09:16 Progress Note Labs show mild anemia and an elevated WBC. In the context of left lower quadrant pain and history of diverticulitis, we should pursue this further as diverticulitis may be complicating his abdominal pain, vomiting, and GI bleeding. Progress Note #2: Time: 13:[address] scan showed no acute abnormalities to explain patient's pain. Patient may have some mild irritation due to diverticular disease. He has had no vomiting or bleeding since arrival to the ER. He received 1500 mL normal saline and IV boluses to ensure volume resuscitation and good hydration in the context of IV contrast usage. Case was discussed with Dr. Sanchez and Dr. Jacobs. Both agree patient should be admitted for observation with no aspirin or Plavix administration. Patient was admitted to the hospitalist service. He is presently awaiting an inpatient bed. Dr. Jacobs has requested H&H every 12 hours. 2 units of packed red blood cells have been ordered for hold. Diagnostic Imaging Diagonstic Imaging: CT Plain Films/CT/US/NM/MRI: abdomen, pelvis Comments CT abdomen and pelvis viewed by me and report reviewed. See report below: NAME: GIGI VILLA [facility] REC#: [id number] PT STATUS: REG ER : 1932 PHYSICIAN: EMELI SWENSON MD ADMIT DATE: 10/27/18/ER Draft Date of Exam:10/27/18 CT ABDOMEN/PELVIS W PROCEDURE: CT abdomen and pelvis with contrast. TECHNIQUE: Multiple contiguous axial images were obtained through the abdomen and pelvis after administration of intravenous contrast. Auto Exposure Controls were utilized during the CT exam to meet ALARA standards for radiation dose reduction. INDICATION: Lower abdominal pain. Nausea and vomiting. COMPARISON: 04/21/2017 FINDINGS: Included portions of the lung bases are clear. CT abdomen: There is advanced colonic diverticulosis, but no CT evidence of acute diverticulitis. Small bowel loops are nondistended. Normal appendix is identified. Multiple bilateral benign-appearing renal cysts are noted. Otherwise, the kidneys, adrenal glands, spleen, pancreas, and liver have a normal CT appearance. There is no loculated fluid collection, free fluid, nor free air within the abdomen. No abnormal mesenteric or retroperitoneal adenopathy is seen. There is mild scattered calcified aortic and arterial atherosclerosis. Bony structures show no acute abnormalities. CT pelvis: Urinary bladder is grossly unremarkable. There is no loculated fluid collection, free fluid, nor free air within the pelvis. No abnormal lymph nodes are identified. There is some increased density about the right inguinal canal (image 72, series 6). Bony structures show no acute abnormalities. IMPRESSION: 1. Increased density about the right inguinal canal; correlation with history of previous inguinal hernia repair is recommended. 2. Colonic diverticulosis, but no CT evidence of acute diverticulitis. 3. Multiple benign-appearing bilateral renal cysts. Dictated on workstation # [id number] Dict: 10/27/18 1117 Trans: 10/27/18 1126 DEACON [id number] Interpreted by: GERALDO BRANTLEY MD Departure Communication (Admissions) Time/Spoke to Admitting Phy: 12:15 Dr. Chitra Sanchez 12:00 Dr. Jacobs 12:05 Impression Primary Impression: Upper GI bleed Additional Impressions: Hematemesis Qualified Codes: K92.0 - Hematemesis Antiplatelet or antithrombotic long-term use Left lower quadrant pain Coronary artery disease Qualified Codes: I25.10 - Atherosclerotic heart disease of [place] coronary artery without angina pectoris Disposition: ADMITTED INPATIENT Condition: Improved Admissions Decision to Admit Reason: Admit from ER (General) Decision to Admit/Date: October 27, 2018 Time/Decision to Admit Time: 12:00 Departure-Patient Inst. Referrals: VEL DE LA GARZA MD (PCP/Family) Primary Care Physician EMELI SWENSON MD October 27, 2018 09:18
[2018-10-27 09:42] LABS: BILIRUBIN,URINE NEGATIVE (NEGATIVE); GLUCOSE, URINE (UA) 2+ (NEGATIVE); KETONES,URINE 2+ (NEGATIVE); LEUKOCYTE ESTERASE ,URINE NEGATIVE (NEGATIVE); NITRITE,URINE NEGATIVE (NEGATIVE); PH,URINE 6.5 (5-9); PROTEIN,URINE 1+ (NEGATIVE); UROBILINOGEN,URINE NORMAL (NORMAL)
[2018-10-27 09:52] LABS: BACTERIA,URINE NEGATIVE /HPF; CLARITY,URINE CLEAR; COLOR,URINE YELLOW; RBC,URINE RARE /HPF; WBC,URINE RARE /HPF
--- NOTE | 2018-10-27 11:26 | Diagnostic Imaging Report ---
PROCEDURE: CT abdomen and pelvis with contrast. TECHNIQUE: Multiple contiguous axial images were obtained through the abdomen and pelvis after administration of intravenous contrast. Auto Exposure Controls were utilized during the CT exam to meet ALARA standards for radiation dose reduction. INDICATION: Lower abdominal pain. Nausea and vomiting. COMPARISON: 04/21/2017 FINDINGS: Included portions of the lung bases are clear. CT abdomen: There is advanced colonic diverticulosis, but no CT evidence of acute diverticulitis. Small bowel loops are nondistended. Normal appendix is identified. Multiple bilateral benign-appearing renal cysts are noted. Otherwise, the kidneys, adrenal glands, spleen, pancreas, and liver have a normal CT appearance. There is no loculated fluid collection, free fluid, nor free air within the abdomen. No abnormal mesenteric or retroperitoneal adenopathy is seen. There is mild scattered calcified aortic and arterial atherosclerosis. Bony structures show no acute abnormalities. CT pelvis: Urinary bladder is grossly unremarkable. There is no loculated fluid collection, free fluid, nor free air within the pelvis. No abnormal lymph nodes are identified. There is some increased density about the right inguinal canal (image 72, series 6). Bony structures show no acute abnormalities. IMPRESSION: 1. Increased density about the right inguinal canal; correlation with history of previous inguinal hernia repair is recommended. 2. Colonic diverticulosis, but no CT evidence of acute diverticulitis. 3. Multiple benign-appearing bilateral renal cysts. Dictated by: Dictated on workstation # [id number]
--- OUTSIDE RECORDS SUMMARY | 2018-10-27 13:03 | XMS REPORT | Continuity of Care Document ---
Author Organization Unknown Address Unknown Allergies Active Description Code Type Severity Reaction Onset Reported/Identified Relationship to Patient Clinical Status Yes No Allergy Information Available [id number] Drug Allergy Unknown N/A 2016 Yes codeine [id number] Drug Allergy Unknown N/A 04/08/2018 Medications There is no data. 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 08/05/2016 ANAMIKA GRIMES MD Ot G62.9 POLYNEUROPATHY, UNSPECIFIED 08/05/2016 ANAMIKA GRIMES MD Ot I10 ESSENTIAL (PRIMARY) HYPERTENSION 08/05/2016 STERLING WATT EMBLEM DRAWER IN Ot R05 COUGH 08/05/2016 STERLING WATT EMBLEM DRAWER IN Ot R53.83 OTHER FATIGUE 09/09/2016 VEL DE LA GARZA MD Ot R05 COUGH 09/09/2016 VEL DE LA GARZA MD Ot R06.2 WHEEZING 04/11/2017 YADIRA SUAREZ K Ot I10 ESSENTIAL (PRIMARY) HYPERTENSION 04/16/2017 ANAMIKA GRIMES MD Ot 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 04/16/2017 ANAMIKA GRIMES MD Ot G62.9 POLYNEUROPATHY, UNSPECIFIED 04/16/2017 ANAMIKA GRIMES MD Ot I10 ESSENTIAL (PRIMARY) HYPERTENSION 04/16/2017 STERLING WATT EMBLEM DRAWER IN Ot R05 COUGH 04/16/2017 STERLING WATT EMBLEM DRAWER IN Ot R53.83 OTHER FATIGUE 04/16/2017 VEL DE LA GARZA MD Ot R05 COUGH 04/16/2017 VEL DE LA GARZA MD Ot R06.2 WHEEZING 04/16/2017 YADIRA SUAREZ K Ot I10 ESSENTIAL (PRIMARY) HYPERTENSION 04/17/2017 YADIRA SUAREZ Ot N28.1 CYST OF KIDNEY, ACQUIRED 04/17/2017 YADIRA SUAREZ K Ot N28.89 OTHER SPECIFIED DISORDERS OF KIDNEY AND 05/01/2017 YADIRA SUAREZ Ot N28.1 CYST OF KIDNEY, ACQUIRED 05/01/2017 YADIRA SUAREZ K Ot N28.89 OTHER SPECIFIED DISORDERS OF KIDNEY AND 05/02/2017 YADIRA SUAREZ Ot N28.1 CYST OF KIDNEY, ACQUIRED 05/02/2017 YADIRA SUAREZ K Ot N28.89 OTHER SPECIFIED DISORDERS OF KIDNEY AND 05/13/2017 YADIRA SUAREZ Ot E78.2 MIXED HYPERLIPIDEMIA 05/13/2017 YADIRA SUAREZ Ot G62.9 POLYNEUROPATHY, UNSPECIFIED 05/13/2017 TIFFANY SUAREZTH K Ot I10 ESSENTIAL (PRIMARY) HYPERTENSION 05/13/2017 ANAMIKA GRIMES MD Ot N28.1 CYST OF KIDNEY, ACQUIRED 05/26/2017 ANAMIKA GRIMES MD Ot N28.1 CYST OF KIDNEY, ACQUIRED 06/03/2017 PANTERA LAZARO, YADIRA Santo Ot E78.2 MIXED HYPERLIPIDEMIA 06/03/2017 PANTERA LAZARO, YADIRA Santo Ot G62.9 POLYNEUROPATHY, UNSPECIFIED 06/03/2017 PANTERA LAZARO, [...] I10 ESSENTIAL (PRIMARY) HYPERTENSION 07/30/2017 STERLING WATT EMBLEM DRAWER IN Ot R05 COUGH 07/30/2017 STERLING WATT EMBLEM DRAWER IN Ot R53.83 OTHER FATIGUE 07/30/2017 HOLLI RUTHERFORD, VEL Weinstein Ot R05 COUGH 07/30/2017 HOLLI RUTHERFORD, VEL Weinstein Ot R06.2 WHEEZING 07/30/2017 PANTERA LAZARO, YADIRA Santo Ot E78.2 MIXED HYPERLIPIDEMIA 07/30/2017 PANTERA LAZARO, YADIRA Santo Ot G62.9 POLYNEUROPATHY, UNSPECIFIED 07/30/2017 PANTERA LAZARO, YADIRA K Ot I10 ESSENTIAL (PRIMARY) HYPERTENSION 07/30/2017 PANTERA LAZARO, YADIRA K Ot N28.1 CYST OF KIDNEY, ACQUIRED 07/30/2017 PANTERA LAZARO, YADIRA K Ot N28.89 OTHER SPECIFIED DISORDERS OF KIDNEY AND 07/30/2017 ANAMIKA GRIMES MD, Ot N28.1 CYST OF KIDNEY, ACQUIRED 07/31/2017 ANAMIKA GRIMES MD Ot 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 07/31/2017 ANAMIKA GRIMES MD Ot G62.9 POLYNEUROPATHY, UNSPECIFIED 07/31/2017 ROBERT GRIMES MDHAR J Ot I10 ESSENTIAL (PRIMARY) HYPERTENSION 07/31/2017 STERLING WATT R EMBLEM DRAWER IN Ot R05 COUGH 07/31/2017 STERLING WATT EMBLEM DRAWER IN Ot R53.83 OTHER FATIGUE 07/31/2017 VEL DE LA GARZA MD Ot R05 COUGH 07/31/2017 VEL DE LA GARZA MD Ot R06.2 WHEEZING 07/31/2017 PANTERA LAZARO, YADIRA Santo Ot E78.2 MIXED HYPERLIPIDEMIA 07/31/2017 PANTERA LAZARO, YADIRA Santo Ot G62.9 POLYNEUROPATHY, UNSPECIFIED 07/31/2017 PANTERA LAZARO, YADIRA Santo Ot I10 ESSENTIAL (PRIMARY) HYPERTENSION 07/31/2017 PANTERA LAZARO, YADIRA Santo Ot N28.1 CYST OF KIDNEY, ACQUIRED 07/31/2017 YADRIA SUAREZ Ot N28.89 OTHER SPECIFIED DISORDERS OF KIDNEY AND 07/31/2017 ANAMIKA GRIMES MD, Ot N28.1 CYST OF KIDNEY, ACQUIRED 08/01/2017 VEL DE LA GARZA MD Ot J22 UNSPECIFIED ACUTE LOWER RESPIRATORY INFE 08/26/2017 VEL DE LA GARZA MD, Ot J22 UNSPECIFIED ACUTE LOWER RESPIRATORY INFE 12/12/2017 FREDDY GARCIA L Ot R05 COUGH 01/01/2018 FREDDY GARCIA Ot R05 COUGH 02/27/2018 ANAMIKA GRIMES MD Ot 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 02/27/2018 ANAMIKA GRIMES MD, Ot G62.9 POLYNEUROPATHY, UNSPECIFIED 02/27/2018 ANAMIKA GRIMES MD Ot I10 ESSENTIAL (PRIMARY) HYPERTENSION 02/27/2018 STERLING WATT EMBLEM DRAWER IN Ot R05 COUGH 02/27/2018 STERLING WATT EMBLEM DRAWER IN Ot R53.83 OTHER FATIGUE 02/27/2018 VEL DE [...] Ot N28.1 CYST OF KIDNEY, ACQUIRED 02/27/2018 HOLLI RUTHERFORD, VEL Weinstein Ot J22 UNSPECIFIED ACUTE LOWER RESPIRATORY INFE 02/27/2018 FREDDY GARCIA Ot R05 COUGH 03/02/2018 CHRISTINE ANDERSON, VAMSHI J 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, LUMBAR REGION 03/02/2018 CHRISTINE ANDERSON, VAMSHI J 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 03/02/2018 CHRISTINE ANDERSON VAMSHI J Ot M47.816 SPONDYLOSIS W/O MYELOPATHY OR RADICULOPA 03/02/2018 CHRISTINE ANDERSON, VAMSHI J Ot 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 03/02/2018 CHRISTINE ANDERSON VAMSHI J Ot 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 03/02/2018 CHRISTINE ANDERSON, VAMSHI J Ot 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 03/02/2018 CHRISTINE ANDERSON, VAMSHI J Ot 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 03/19/2018 CHRISTINE ANDERSON, VAMSHI J 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, LUMBAR REGION 03/19/2018 CHRISTINE ANDERSON, VAMSHI J 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 03/19/2018 CHRISTINE ANDERSON VAMSHI J Ot M47.816 SPONDYLOSIS W/O MYELOPATHY OR RADICULOPA 03/19/2018 CHRISTINE ANDERSON, VAMSHI J Ot 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 03/19/2018 CHRISTINE ANDERSON VAMSHI J Ot 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 03/19/2018 CHRISTINE ANDERSON, VAMSHI J Ot 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 03/19/2018 CHRISTINE ANDERSON VAMSHI J Ot 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 04/07/2018 ANAMIKA GRIMES MD Ot 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 04/07/2018 ANAMIKA GRIMES MD Ot G62.9 POLYNEUROPATHY, UNSPECIFIED 04/07/2018 ANAMIKA GRIMES MD Ot I10 ESSENTIAL (PRIMARY) HYPERTENSION 04/07/2018 STERLING WATT EMBLEM DRAWER IN Ot R05 COUGH 04/07/2018 STERLING WATT EMBLEM DRAWER IN Ot R53.83 OTHER FATIGUE 04/07/2018 HOLLI RUTHERFORD, VEL Weinstein Ot R05 COUGH 04/07/2018 VEL DE LA GARZA MD Ot R06.2 WHEEZING 04/07/2018 YADRIA SUAREZ Ot E78.2 MIXED HYPERLIPIDEMIA 04/07/2018 YADIRA SUAREZ Ot G62.9 POLYNEUROPATHY, UNSPECIFIED 04/07/2018 YADIRA SUAREZ Ot I10 ESSENTIAL (PRIMARY) HYPERTENSION 04/07/2018 YADIRA SUAREZ Ot N28.1 CYST OF KIDNEY, ACQUIRED 04/07/2018 YADIRA SUAREZ Ot N28.89 OTHER SPECIFIED DISORDERS OF KIDNEY AND 04/07/2018 ANAMIKA GRIMES MD Ot N28.1 CYST OF KIDNEY, ACQUIRED 04/07/2018 VEL DE LA GARZA MD Ot J22 UNSPECIFIED ACUTE LOWER RESPIRATORY INFE 04/07/2018 INOCENTE LAZARO, FREDDY Ornelas Ot R05 COUGH 04/07/2018 VAMSHI KING DC [...] YADIRA SUAREZ Ot I10 ESSENTIAL (PRIMARY) HYPERTENSION 04/09/2018 ANAMIKA GRIMES MD Ot E78.2 MIXED HYPERLIPIDEMIA 04/09/2018 ANAMIKA GRIMES MD Ot G62.9 POLYNEUROPATHY, UNSPECIFIED 04/09/2018 ANAMIKA GRIMES MD J Ot I10 ESSENTIAL (PRIMARY) HYPERTENSION 04/09/2018 ANAMIKA GRIMES MD Ot I25.10 ATHSCL HEART DISEASE OF [place] CORONARY 04/09/2018 ANAMIKA GRIMES MD Ot I45.10 UNSPECIFIED RIGHT BUNDLE-BRANCH BLOCK 04/09/2018 ANAMIKA GRIMES MD Ot I65.29 OCCLUSION AND STENOSIS OF UNSPECIFIED CA 04/09/2018 ANAMIKA GRIMES MD Ot Z79.899 OTHER HALFWAY (CURRENT) DRUG THERAPY 04/09/2018 ANAMIKA GRIMES MD Ot Z86.73 PRSNL HX OF TIA (TIA), AND CEREB INFRC W 04/13/2018 ANAMIKA GRIMES MD Ot E78.2 MIXED HYPERLIPIDEMIA 04/13/2018 ANAMIKA GRIMES MD Ot G62.9 POLYNEUROPATHY, UNSPECIFIED 04/13/2018 ANAMIKA GRIMES MD Ot I10 ESSENTIAL (PRIMARY) HYPERTENSION 04/13/2018 ANAMIKA GRIMES MD Ot I25.10 ATHSCL HEART DISEASE OF [place] CORONARY 04/13/2018 ANAMIKA GRIMES MD Ot I45.10 UNSPECIFIED RIGHT BUNDLE-BRANCH BLOCK 04/13/2018 ANAMIKA GRIMES MD Ot I65.29 OCCLUSION AND STENOSIS OF UNSPECIFIED CA 04/13/2018 ANAMIKA GRIMES MD Ot Z79.899 OTHER SUPERINTENDENT STORAGE AREA (CURRENT) DRUG THERAPY 04/13/2018 ANAMIKA GRIMES MD Ot Z86.73 PRSNL HX OF TIA (TIA), AND CEREB INFRC W 04/21/2018 YADIRA SUAREZ Ot E78.2 MIXED HYPERLIPIDEMIA 04/21/2018 YADIRA SUAREZ Ot G62.9 POLYNEUROPATHY, UNSPECIFIED 04/21/2018 YADIRA SUAREZ Ot I10 ESSENTIAL (PRIMARY) HYPERTENSION 04/30/2018 YADIRA SUAREZ Ot E78.2 MIXED HYPERLIPIDEMIA 04/30/2018 YADIRA SUAREZ Ot G45.9 TRANSIENT CEREBRAL ISCHEMIC ATTACK, UNSP 04/30/2018 YADIRA SUAREZ Ot I10 ESSENTIAL (PRIMARY) HYPERTENSION 05/06/2018 YADIRA SUAREZ Ot E78.2 MIXED HYPERLIPIDEMIA 05/06/2018 YADIRA SUAREZ Ot G62.9 POLYNEUROPATHY, UNSPECIFIED 05/06/2018 YADIRA SUAREZ Ot I10 ESSENTIAL (PRIMARY) HYPERTENSION 06/19/2018 ANAMIKA GRIMES MD Ot Z48.812 ENCNTR FOR SURGICAL AFTCR FOLLOWING SURG 06/19/2018 ANAMIKA GRIMES MD Ot Z95.5 PRESENCE OF CORONARY ANGIOPLASTY IMPLANT 08/09/2018 ANAMIKA GRIMES MD Ot Z48.812 ENCNTR FOR SURGICAL AFTCR FOLLOWING SURG 08/09/2018 ANAMIKA GRIMES MD Ot Z95.5 PRESENCE OF CORONARY ANGIOPLASTY IMPLANT 08/10/2018 ANAMIKA GRIMES MD Ot Z48.812 ENCNTR FOR SURGICAL AFTCR FOLLOWING SURG 08/10/2018 ANAMIKA GRIMES MD Ot Z95.5 PRESENCE OF CORONARY ANGIOPLASTY IMPLANT Procedures There is no data. Results Test Result Range Automated blood complete blood count (hemogram) panel - 04/08/18 07:26 Blood leukocytes automated count (number/volume) 8.1 10*3/uL 4.3-11.0 Blood erythrocytes automated count (number/volume) 4.22 10*6/uL 4.35-5.85 Venous blood hemoglobin measurement (mass/volume) 14.4 g/dL 13.3-17.7 Blood hematocrit (volume fraction) 39 % 40-54 Automated erythrocyte mean corpuscular volume 92 [foz_us] 80-99 Automated erythrocyte mean corpuscular hemoglobin (mass per erythrocyte) 34 pg 25-34 Automated erythrocyte mean corpuscular hemoglobin concentration measurement ( mass/volume) 37 g/dL 32-36 Automated erythrocyte distribution width ratio 12.4 % 10.0-14.5 Automated blood platelet count (count/volume) 218 10*3/uL 130-400 Automated blood platelet mean volume measurement 8.5 [foz_us] 7.4-10.4 PT panel in platelet poor plasma by coagulation assay - 04/08/18 07:26 Prothrombin time (PT) in platelet poor plasma by coagulation assay 14.6 s 12.2-14.7 INR in platelet poor plasma or blood by coagulation assay 1.1 0.8-1.4 Activated partial thromboplastin time (aPTT) in platelet poor plasma bycoagulation assay - 04/08/18 07:26 Activated partial thromboplastin time (aPTT) in platelet poor plasma bycoagulation assay 29 s 24-35 Comprehensive metabolic panel - 04/08/18 07:26 Serum or plasma sodium measurement (moles/volume) 128 mmol/L 135-145 Serum or plasma potassium measurement (moles/volume) 3.8 mmol/L 3.6-5.0 Serum or plasma chloride measurement (moles/volume) 93 mmol/L 98-107 Carbon dioxide 23 mmol/L 21-32 Serum or plasma anion gap determination (moles/volume) 12 mmol/L 5-14 Serum or plasma urea nitrogen measurement (mass/volume) 14 mg/dL 7-18 Serum or plasma creatinine measurement (mass/volume) 0.96 mg/dL 0.60-1.30 Serum or plasma urea nitrogen/creatinine mass ratio 15 NRG Serum or plasma creatinine measurement with calculation of estimated glomerular filtration rate > NRG Serum or plasma glucose measurement (mass/volume) 95 mg/dL 70-105 Serum or plasma calcium measurement (mass/volume) 9.5 mg/dL 8.5-10.1 Serum or plasma total bilirubin measurement (mass/volume) 1.3 mg/dL 0.1-1.0 Serum or plasma alkaline phosphatase measurement (enzymatic activity/volume) 45 U/L 40-136 Serum or plasma aspartate aminotransferase measurement (enzymatic activity/ volume) 23 U/L 5-34 Serum or plasma alanine aminotransferase measurement (enzymatic activity/volume ) 27 U/L 0-55 Serum or plasma protein measurement (mass/volume) 7.7 g/dL 6.4-8.2 Serum or plasma albumin measurement (mass/volume) 4.8 g/dL 3.2-4.5 Lipid 1996 panel - 04/08/18 07:26 Serum or plasma triglyceride measurement (mass/volume) 77 mg/dL <150 Serum or plasma cholesterol measurement (mass/volume) 145 mg/dL < 200 Serum or plasma cholesterol in HDL measurement (mass/volume) 46 mg/ dL 40-60 Cholesterol in LDL [mass/volume] in serum or plasma by direct assay 88 mg/dL 1-129 Serum or plasma cholesterol in VLDL measurement (mass/volume) 15 mg/ dL 5-40 Methicillin resistant Staphylococcus aureus (MRSA) screening culture - 07:26 MRSA SCREEN RESULT MRSA ISOLATED NRG Automated blood complete blood count (hemogram) panel - 04/09/18 04:06 Blood leukocytes automated count (number/volume) 12.8 10*3/uL 4.3-11.0 Blood erythrocytes automated count (number/volume) 4.41 10*6/uL 4.35-5.85 Venous blood hemoglobin measurement (mass/volume) 14.5 g/dL 13.3-17.7 Blood hematocrit (volume fraction) 41 % 40-54 Automated erythrocyte mean corpuscular volume 94 [foz_us] 80-99 Automated erythrocyte mean corpuscular hemoglobin (mass per erythrocyte) 33 pg 25-34 Automated erythrocyte mean corpuscular hemoglobin concentration measurement ( mass/volume) 35 g/dL 32-36 Automated erythrocyte distribution width ratio 12.9 % 10.0-14.5 Automated blood platelet count (count/volume) 234 10*3/uL 130-400 Automated blood platelet mean volume measurement 8.8 [foz_us] 7.4-10.4 Whole blood basic metabolic panel - 04/09/18 04:10 Serum or plasma sodium measurement (moles/volume) 130 mmol/L 135-145 Serum or plasma potassium measurement (moles/volume) 3.9 mmol/L 3.6-5.0 Serum or plasma chloride measurement (moles/volume) 99 mmol/L 98-107 Carbon dioxide 20 mmol/L 21-32 Serum or plasma anion gap determination (moles/volume) 11 mmol/L 5-14 Serum or plasma urea nitrogen measurement (mass/volume) 12 mg/dL 7-18 Serum or plasma creatinine measurement (mass/volume) 0.86 mg/dL 0.60-1.30 Serum or plasma urea nitrogen/creatinine mass ratio 14 NRG Serum or plasma creatinine measurement with calculation of estimated glomerular filtration rate > NRG Serum or plasma glucose measurement (mass/volume) 109 mg/dL 70-105 Serum or plasma calcium measurement (mass/volume) 9.0 mg/dL 8.5-10.1 Encounters ACCT No. Visit Date/Time Discharge Status Pt. Type Provider Facility Loc./Unit Complaint [id number] 08/10/2018 10:00:00 08/10/2018 23:59:59 CLS Preadmit ANAMIKA GRIMES MD [facility] CR STENT [id number] 06/19/2018 15:40:00 08/09/2018 00:01:00 DIS Outpatient ANAMIKA GRIMES MD [facility] CR STENT [id number] 04/29/2018 06:47:00 04/29/2018 23:59:59 CLS Outpatient YADIRA SUAREZ [facility] CARD CAROTID ARTERY STENOSIS,HTN [id number] 04/08/2018 06:52:00 04/09/2018 10:45:00 DIS Outpatient ANAMIKA GRIMES MD [facility] CATH ABN STRESS TEST [id number] 04/01/2018 07:52:00 04/01/2018 23:59:59 CLS Outpatient YADIRA SUAREZ [facility] CARD CAROTID ARTERY STENOSIS,HTN,HYPERLIPIDEMIA,NEUROPA [id number] 02/27/2018 11:06:00 02/27/2018 23:59:59 CLS Outpatient VAMSHI KING DC [facility] RAD M54.5 [id number] 12/11/2017 08:47:00 12/11/2017 23:59:59 CLS Outpatient FREDDY GARCIA [facility] RAD COUGH,WHEEZING [id number] 07/31/2017 15:36:00 07/31/2017 23:59:59 CLS Outpatient VEL DE LA GARZA MD [facility] RAD COUGH [id number] 05/12/2017 11:48:00 05/12/2017 23:59:59 CLS Outpatient YADIRA SUAREZ [facility] CARD HTN [id number] 04/21/2017 08:14:00 04/21/2017 23:59:59 CLS Outpatient ANAMIKA GRIMES MD [facility] RAD RENAL MASS [id number] 04/16/2017 09:25:00 04/16/2017 23:59:59 CLS Outpatient YADIRA SUAREZ [facility] RAD HTN I10 [id number] 08/05/2016 15:57:00 08/05/2016 23:59:59 CLS Outpatient HOLLI RUTHERFORD, VEL Weinstein [facility] RAD COUGH,WHEEZING [id number] 08/18/2015 09:02:00 08/18/2015 23:59:59 CLS Outpatient STERLING WATT APRN [facility] RAD CHRONIC COUGH [id number] 05/09/2015 07:21:00 05/09/2015 23:59:59 CLS Outpatient SYDNEY RUTHERFORD, ANAMIKA Velasquez [facility] CARD HTN,TIA
[2018-10-27 13:40] VITALS: BP 160/97
--- NOTE | 2018-10-27 13:40 | NUR ---
PT ARRIVED TO FLOOR VIA STRETCHER WITH ED NURSE AND DAUGHTER AT SIDE. PT A/O X4. HARD OF HEARING WITH BILATERAL HEARING AIDES. PT REPORTS WEAKNESS AND BILATERAL LOWER ABDOMINAL TENDERNESS FOR PAST COUPLE WEEKS. PT IS SHORT OF BREATH WITH MOVEMENT. LAST BM WAS YESTERDAY PER PATIENT. PT DENIES ANY NAUSEA AT THIS TIME BUT HAS SOME DIZZINESS WITH MOVEMENT. REPORTS HAVING A HEADACHE RATING PAIN AT 5/10. PT ORIENTED TO ROOM. CALL LIGHT WITHIN REACH. PT VERBALIZED UNDERSTANDING OF USE OF CALL LIGHT. ID BAND IN PLACE.
[2018-10-27] MEDS ORDERED: TRAZ-190 PO (14:23)
[2018-10-27] MEDS ORDERED: METO-387 PO (14:23)
[2018-10-27] MEDS ORDERED: BENA10TA7 PO (14:23)
[2018-10-27] MEDS ORDERED: AMLO5TAB9 PO (14:23)
[2018-10-27] MEDS ORDERED: CLOP75TA28 PO (14:23)
[2018-10-27] MEDS ORDERED: FURO20TA4 PO (14:23)
[2018-10-27] MEDS ORDERED: CATHETER FLUSH 10 ML SYR IV PRN (14:30)
[2018-10-27] MEDS ORDERED: ONDANSETRON 4 MG/2 ML (SDV) Z0FRAN IV PRN (14:30)
[2018-10-27] MEDS ORDERED: MELA3TAB PO (15:11)
[2018-10-27] MEDS ORDERED: DOCU100C37 PO (15:11)
--- NOTE | 2018-10-27 15:14 | NUR ---
CALLED AND SPOKE WITH THE PATIENTS DAUGHTER REGARDING MEDICATIONS. SHE HAD A LIST THAT SHE STATES SHE RECENTLY UPDATED AND I COMPARED IT WITH THE EXT MED HX. SHE STATES HE IS NO LONGER TAKING THE LASIX OR AMLODIPINE THAT HAS BEEN FILLED ON THE EXT MED HX. HE TAKES THE FOLLOWING OTC: FISH OIL 1200 MTV DAILY MELATONIN HS COLACE BID VITAMIN D DAILY ASPIRIN 81MG DAILY SHE STATES HE IS TAKING 3 TABS OF TRAZODONE AT HS HOWEVER HER LIST STATES 50MG, ACCORDING TO THE EXT MED HX HE HAS MOST RECENTLY FILLED THE 100MG TABLETS. SHE IS GOING TO DOUBLE CHECK BUT FOR NOW I ENTERED THE MED THAT HAS BEEN FILLED MOST RECENTLY, 100MG.
--- NOTE | 2018-10-27 15:23 | Consultation-Cardiology ---
HPI-Cardiology Cardiology Consultation Date of Consultation 10/27/18 Date of Admission Time Seen by Provider: 15:21 Indication: hemoptysis HPI 87 years old gentleman with history of coronary artery disease, had a stent placed last year, last stress test showed no sig ischemia or infarction. Has history of orthostatic dizziness, had a syncopal episode in the past, woke up last night with dizziness and lightheadedness, felt nauseous, reported that he spit up LAD, no nausea or vomiting. Patient came to the emergency room for evaluation, still feeling foggy, tachycardic at this time. Denied any active chest pain. Denied any palpitation. No full syncope was reported at this time. Home Medications & Allergies Allergies: Coded Allergies: codeine (Verified Allergy, Unknown, 04/08/18) Home Medication List Reviewed: Yes QON-Hvsqau-Isjevw Hx Patient Social History Marital Status: Employed/Student: retired Alcohol Use: Denies Use Recreational Drug Use: No Smoking Status: Never a Smoker 2nd Hand Smoke Exposure: No Recent Foreign Travel: No Recent Infectious Disease Expo: No Recent Hopitalizations: No Physical Abuse Screen: No Sexual Abuse: No Immunizations Up To Date Date of Pneumonia Vaccine: Mar 29, 2017 Date of Influenza Vaccine: Mar 25, 2018 Past Medical History past medical history as described below Family Medical History Family Medical Hx noncontributory to his current condition Review of Systems Constitutional: see HPI, malaise EENTM: see HPI, no symptoms reported Respiratory: no symptoms reported, see HPI Cardiovascular: no symptoms reported, see HPI; No chest pain, No edema, No Hx of Intervention, No palpitations, No syncope, No vascular heart diseas, No other Gastrointestinal: RLQ, LLQ, see HPI, hematemesis (questionable hematemesis), nausea Genitourinary: see HPI Musculoskeletal: no symptoms reported, see HPI Skin: no symptoms reported, see HPI Psychiatric/Neurological: No Symptoms Reported, See HPI Reviewed Test Results Reviewed Test Results Lab Laboratory Tests Test 10/27/18 08:17 10/27/18 08:27 Range/Units Urine Color YELLOW Urine Clarity CLEAR Urine pH 6.5 5-9 Urine Specific [place] 1.015 L 1.016-1.022 Urine Protein 1+ H NEGATIVE Urine Glucose (UA) 2+ H NEGATIVE Urine Ketones 2+ H NEGATIVE Urine Nitrite NEGATIVE NEGATIVE Urine Bilirubin NEGATIVE NEGATIVE Urine Urobilinogen NORMAL NORMAL MG/DL Urine Leukocyte Esterase NEGATIVE NEGATIVE Urine RBC (Auto) NEGATIVE NEGATIVE Urine RBC RARE /HPF Urine WBC RARE /HPF Urine Squamous Epithelial Cells NONE /HPF Urine Crystals NONE /LPF Urine Bacteria NEGATIVE /HPF Urine Casts NONE /LPF Urine Mucus NEGATIVE /LPF Urine Culture Indicated NO White Blood Count 13.3 H 4.3-11.0 10^3/uL Red Blood Count 3.93 L 4.35-5.85 10^6/uL Hemoglobin 12.3 L 13.3-17.7 G/DL Hematocrit 37 L 40-54 % Mean Corpuscular Volume 93 80-99 FL Mean Corpuscular Hemoglobin 31 25-34 PG Mean Corpuscular Hemoglobin Concent 34 32-36 G/DL Red Cell Distribution Width 11.9 10.0-14.5 % Platelet Count 258 130-400 10^3/uL Mean Platelet Volume 9.3 7.4-10.4 FL Neutrophils (%) (Auto) 79 H 42-75 % Lymphocytes (%) (Auto) 14 12-44 % Monocytes (%) (Auto) 6 0-12 % Eosinophils (%) (Auto) 1 0-10 % Basophils (%) (Auto) 0 0-10 % Neutrophils # (Auto) 10.5 H 1.8-7.8 X 10^3 Lymphocytes # (Auto) 1.9 1.0-4.0 X 10^3 Monocytes # (Auto) 0.8 0.0-1.0 X 10^3 Eosinophils # (Auto) 0.1 0.0-0.3 10^3/uL Basophils # (Auto) 0.0 0.0-0.1 10^3/uL Prothrombin Time 15.3 H 12.2-14.7 SEC INR Comment 1.2 0.8-1.4 Activated Partial Thromboplast Time 30 24-35 SEC Sodium Level 136 135-145 MMOL/L Potassium Level 4.1 3.6-5.0 MMOL/L Chloride Level 101 98-107 MMOL/L Carbon Dioxide Level 24 21-32 MMOL/L Anion Gap 11 5-14 MMOL/L Blood Urea Nitrogen 47 H 7-18 MG/DL Creatinine 1.26 0.60-1.30 MG/DL Estimat Glomerular Filtration Rate 54 BUN/Creatinine Ratio 37 Glucose Level 150 H 70-105 MG/DL Calcium Level 9.7 8.5-10.1 MG/DL Corrected Calcium 9.4 8.5-10.1 MG/DL Total Bilirubin 0.7 0.1-1.0 MG/DL Aspartate Amino Transf (AST/SGOT) 16 5-34 U/L Alanine Aminotransferase (ALT/SGPT) 14 0-55 U/L Alkaline Phosphatase 61 40-136 U/L Total Protein 7.4 6.4-8.2 GM/DL Albumin 4.4 3.2-4.5 GM/DL Lipase 5 L 8-78 U/L Physical Exam Vital Signs Vital Signs - First Documented 10/27/18 08:30 Temp 97.7 Pulse 112 Resp 18 B/P (MAP) 137/101 (113) Pulse Ox 99 O2 Delivery Room Air Capillary Refill : Less Than 3 Seconds Height, Weight, BMI Height: 5'9.00" Weight: 162lbs. 0.0oz. [id number]; 23.9 BMI Method:Stated General Appearance: No Apparent Distress, WD/WN Eyes: Bilateral Eye Normal Inspection, Bilateral Eye PERRL, Bilateral Eye EOMI HEENT: PERRL/EOMI, TMs Normal, Normal ENT Inspection, Pharynx Normal Neck: Full Range of Motion, Normal Inspection, Non Tender, Supple, Carotid Bruit Respiratory: Chest Non Tender, Lungs Clear, Normal Breath Sounds, No Accessory Muscle Use, No Respiratory Distress Cardiovascular: Regular Rate, Rhythm, No Edema, No Gallop, No JVD, No Murmur, Normal Peripheral Pulses Gastrointestinal: Normal Bowel Sounds, No Organomegaly, No Pulsatile Mass, Non Tender, Soft Back: Normal Inspection, No CVA Tenderness, No Vertebral Tenderness Extremity: Normal Capillary Refill, Normal Inspection, Normal Range of Motion, Non Tender, No Calf Tenderness, No Pedal Edema Neurologic/Psychiatric: Alert, Oriented x3, No Motor/Sensory Deficits, Normal Mood/Affect Skin: Normal Color, Warm/Dry Lymphatic: No Adenopathy A/P-Cardiology Admission Diagnosis Hemoptysis Nausea Coronary artery disease Sinus tachycardia Assessment/Plan Hemoptysis, questionable upper GI bleed. No active bleeding was noted at this time. Tachycardia, questionable sinus tachycardia secondary to GI bleed, not anemic at this time. Restart beta blockers and monitor H&H, evaluate EKG and place patient on telemetry Dizziness and lightheadedness, history of syncope in the past, had a syncopal episode upon waking up at night once in the remote past. Still having occasional episodes of dizziness and lightheadedness with hypotension. Lasix was discontinued in September. And tinea to monitor Coronary artery disease-underwent cardiac catheterization on April 08, 2018 revealing severe stenosis at the mid to distal LAD successful primary stenting using Dora 2.515 mm expanded to 2.77 mm with excellent results with no residual stenosis, mild disease at the distal LAD, the LAD is wrap around the apex codominant vessel. Mild disease in the dominant right coronary artery, nonobstructive disease, nondominant circumflex artery. Prominent aortic root and ascending aorta, mild ectasia. Monitoring with serial CT angiogram is recommended. Stress test April 2018 revealed no ischemia or infarct, I will stop Plavix, hold aspirin for now and monitor History of Transient ischemic attack, occurred in February 2011 with left leg weakness lasted for 24 hours. Resolved completely, no source of his TIA was noted. 2-D echocardiogram and carotid duplex within normal limits. Continue to monitor. Hypertension, controlled. Has labile hypertension. continue to monitor blood pressure Hyperlipidemia, monitor lipids Peripheral edema-patient reports improvement. Abnormal EKG with RBBB History of neuropathy Clinical Quality Measures DVT/VTE Risk/Contraindication: Risk Factor Score Per Nursin RFS Level Per Nursing on Admit: 4+=Very High ANAMIKA GRIMES MD October 27, 2018 15:23
[2018-10-27 15:34] LABS: HEMOGLOBIN 9.6 G/DL (13.3-17.7)
[2018-10-27] MEDS: ACETAMINOPHEN 325 MG TABLET PO PRN (15:40)
[2018-10-27] MEDS: NS IV 1000 ML 1,000 ML IV SCH (16:07)
[2018-10-27 16:19] VITALS: BP 149/95
[2018-10-27] MEDS: GABAPENTIN 300 MG (NEURONTIN) CAP PO SCH ×2 (17:03→20:52)
--- NOTE | 2018-10-27 17:24 | Consultation (Surgery) ---
History of Present Illness History of Present Illness Patient Consulted On(lacey/time) 10/27/18 17:19 Date Seen by Provider: October 27, 2018 Time Seen by Provider: 16:00 Reason for Visit: hemoptysis History of Present Illness Consult requested by Dr. Buenrostro for evaluation of hemoptysis 87 y/o M presented to the ED with CC of spitting up blood. He states that it began this morning around 4 am. He woke up and went to the bathroom, feeling lightheaded, dizzy and weak, and spit up blood 2 times. He described the color as a reddish-brown, and did not see any clots. He called his daughter to come check on him and they decided to present to our ED. He has not had symptoms like this before. Since arrival to the ED, he has not had any more episodes of spitting up blood. He has a history of daily NSAID use as well as being on Plavix and ASA. He continues to feel weak and also endorses generalized lower abdominal pain that has been off and on for the past couple weeks. He denies hematochezia, melena, chest pain, head ache, shortness of breath, N/V/D. Allergies and Home Medications Allergies Coded Allergies: codeine (Verified Allergy, Unknown, 04/08/18) Home Medications Aspirin 81 Mg Tablet.dr, 81 MG PO DAILY, (Reported) Benazepril HCl 10 Mg Tablet, 10 MG PO DAILY, (Reported) Cholecalciferol (Vitamin D3) 1,000 Unit Capsule, 1,000 UNIT PO 1730, (Reported) Docusate Sodium 100 Mg Capsule, 100 MG PO 1200,2100, (Reported) Gabapentin 300 Mg Capsule, 300 MG PO 1730, (Reported) Gabapentin 300 Mg Capsule, 600 MG PO HS, (Reported) TAKES 2 (300MG) CAPSULES Melatonin 3 Mg Tablet, 3 MG PO HS, (Reported) Metoprolol Succinate 25 Mg Tab.er.24h, 25 MG PO 1730, (Reported) Multivits, W-,Other Min 1 Each Tablet, 1 TAB PO DAILY, (Reported) Edna 3 Polyunsat Fatty Acids 1,000 Mg Cap, 1,000 MG PO 1200, (Reported) Trazodone HCl 100 Mg Tablet, 300 MG PO HS, (Reported) TAKES 3 (100MG) TABLETS Patient Home Medication List Home Medication List Reviewed: Yes Past Yelootz-Zyyoxq-Ucwocw Hx Patient Social History Alcohol Use: Denies Use Recreational Drug Use: No Smoking Status: Never a Smoker 2nd Hand Smoke Exposure: No Recent Foreign Travel: No Contact w/Someone Who Travel: No Recent Infectious Disease Expo: No Recent Hopitalizations: No Physical Abuse Screen: No Sexual Abuse: No Immunizations Up To Date PED Vaccines UTD: No Date of Pneumonia Vaccine: Mar 29, 2017 Date of Influenza Vaccine: Mar 25, 2018 Seasonal Allergies Seasonal Allergies: Yes Surgeries History of Surgeries: Yes (HERNIA BILAT) Surgeries: Abdominal (hernia), Coronary Stent Respiratory History of Respiratory Disorde: Yes Respiratory Disorders: Asthma Cardiovascular History of Cardiac Disorders: Yes Cardiac Disorders: Coronary Artery Disease, Hypertension Neurological History of Neurological Disord: Yes Neurological Disorders: Stroke Genitourinary History of Genitourinary Disor: No Gastrointestinal History of Gastrointestinal Di: Yes Gastrointestinal Disorders: Abdominal Hernia Musculoskeletal History of Musculoskeletal Dis: No Endocrine History of Endocrine Disorders: No HEENT History of HEENT Disorders: No Hearing Impairment: Hard of Hearing, Hearing Aide Right, Hearing Aide Left Cancer History of Cancer: No Psychosocial History of Psychiatric Problem: No Integumentary History of Skin or Integumenta: No Blood Transfusions History of Blood Disorders: No Adverse Reaction to a Blood Tr: No Reviewed Nursing Assessment Reviewed/Agree w Nursing PMH: Yes Family Medical History Significant Family History: Cancer (Colon Cancer in mother, diagnosed in her 70 's) Review of Systems-General Constitutional: dizziness, weakness EENTM: hearing loss (Chronic, uses hearing aids) Respiratory: hemoptysis Cardiovascular: no symptoms reported Gastrointestinal: abdominal pain (Generalized lower abdominal pain), nausea Genitourinary: no symptoms reported Musculoskeletal: no symptoms reported Skin: no symptoms reported Psychiatric/Neurological: No Symptoms Reported Physical Exam-General Problems Physical Exam Vital Signs Vital Signs - First Documented 10/27/18 08:30 Temp 97.7 Pulse 112 Resp 18 B/P (MAP) 137/101 (113) Pulse Ox 99 O2 Delivery Room Air Capillary Refill : Less Than 3 Seconds General Appearance: WD/WN, no apparent distress HEENT: PERRL/EOMI Neck: non-tender, full range of motion Respiratory: chest non-tender, lungs clear Cardiovascular: no edema, tachycardia Gastrointestinal: normal bowel sounds, soft; No guarding, No rebound; tenderness (minimal lower abdomen) Rectal: deferred Back: normal inspection Extremities: normal range of motion, non-tender Neurologic/Psychiatric: mcat tutor II-XII nml as tested, no motor/sensory deficits, alert, normal mood/affect, oriented x 3 Skin: normal color, warm/dry Lymphatic: no adenopathy Data Review Labs Laboratory Tests 10/27/18 08:17: Urine Color YELLOW, Urine Clarity CLEAR, Urine pH 6.5, Urine Specific [place] 1.015L, Urine Protein 1+H, Urine Glucose (UA) 2+H, Urine Ketones 2+H, Urine Nitrite NEGATIVE, Urine Bilirubin NEGATIVE, Urine Urobilinogen NORMAL, Urine Leukocyte Esterase NEGATIVE, Urine RBC (Auto) NEGATIVE, Urine RBC RARE, Urine WBC RARE, Urine Squamous Epithelial Cells NONE, Urine Crystals NONE, Urine Bacteria NEGATIVE, Urine Casts NONE, Urine Mucus NEGATIVE, Urine Culture Indicated NO 10/27/18 08:27: White Blood Count 13.3H, Red Blood Count 3.93L, Hemoglobin 12.3L, Hematocrit 37L , Mean Corpuscular Volume 93, Mean Corpuscular Hemoglobin 31, Mean Corpuscular Hemoglobin Concent 34, Red Cell Distribution Width 11.9, Platelet Count 258, Mean Platelet Volume 9.3, Neutrophils (%) (Auto) 79H, Lymphocytes (%) (Auto) 14 , Monocytes (%) (Auto) 6, Eosinophils (%) (Auto) 1, Basophils (%) (Auto) 0, Neutrophils # (Auto) 10.5H, Lymphocytes # (Auto) 1.9, Monocytes # (Auto) 0.8, Eosinophils # (Auto) 0.1, Basophils # (Auto) 0.0, Prothrombin Time 15.3H, INR Comment 1.2, Activated Partial Thromboplast Time 30, Sodium Level 136, Potassium Level 4.1, Chloride Level 101, Carbon Dioxide Level 24, Anion Gap 11, Blood Urea Nitrogen 47H, Creatinine 1.26, Estimat Glomerular Filtration Rate 54 , BUN/Creatinine Ratio 37, Glucose Level 150H, Calcium Level 9.7, Corrected Calcium 9.4, Total Bilirubin 0.7, Aspartate Amino Transf (AST/SGOT) 16, Alanine Aminotransferase (ALT/SGPT) 14, Alkaline Phosphatase 61, Total Protein 7.4, Albumin 4.4, Lipase 5L 10/27/18 15:27: Hemoglobin 9.6#L, Hematocrit 29L Assessment/Plan Assessment/Plan Admission Diagonsis Hemoptysis Assessment/Plan Hemoptysis Upper GI bleed CAD - Monitor H/H this evening and in AM - If unstable, will consider EGD tomorrow - Hold Plavix and ASA; Would optimally like 5-7 days then do EGD inpatient vs outpatient - PPI - IV Fluids - NPO for now - Will follow Clinical Quality Measures DVT/VTE Risk/Contraindication: Risk Factor Score Per Nursin RFS Level Per Nursing on Admit: 4+=Very High Supervisory-Addendum Brief Supervisory Addendum Participated in pt care: history, MDM, physical Personally performed: exam, history, MDM, supervision of care Care discussed with: other Results interpretation: agree with documentation CED MARQUEZ RESIDENT October 27, 2018 17:24 ANNIE BENZ DO October 27, 2018 19:33
[2018-10-27 19:00] VITALS: BP 157/95
[2018-10-27 20:32] LABS: BASOPHILS % (AUTO) 0 % (0-10); EOSINOPHILS # (AUTO) 0.1 10^3/uL (0.0-0.3); EOSINOPHILS % (AUTO) 1 % (0-10); HEMATOCRIT 25 % (40-54); HEMOGLOBIN 8.5 G/DL (13.3-17.7); LYMPHOCYTES # (AUTO) 1.8 X 10^3 (1.0-4.0); LYMPHOCYTES % (AUTO) 23 % (12-44); MEAN CORPUSCULAR HEMOGLOBIN 32 PG (25-34); MEAN CORPUSCULAR HGB CONC 34 G/DL (32-36); MEAN CORPUSCULAR VOLUME 94 FL (80-99); MEAN PLATELET VOLUME 9.2 FL (7.4-10.4); MONOCYTES # (AUTO) 0.7 X 10^3 (0.0-1.0); MONOCYTES % (AUTO) 9 % (0-12); NEUTROPHILS # (AUTO) 5.1 X 10^3 (1.8-7.8); NEUTROPHILS % (AUTO) 66 % (42-75); PLATELET COUNT 193 10^3/uL (130-400); RED CELL DISTRIBUTION WIDTH 11.8 % (10.0-14.5); WHITE BLOOD COUNT 7.7 10^3/uL (4.3-11.0)
[2018-10-27] MEDS: PANTOPRAZOLE 40 MG (PROTONIX) VIAL IV SCH (20:51)
[2018-10-27] MEDS: FAMOTIDINE 20MG/2ML IV (PEPCID) IV SCH (20:51)
[2018-10-27] MEDS: traZODone 100 MG (DESYREL) TAB PO SCH (20:52)
[2018-10-27] MEDS: CATHETER FLUSH 10 ML SYR IV SCH (20:52)
[2018-10-27] MEDS: MELATONIN 3 MG TABLET PO SCH (20:52)
[2018-10-27] MEDS ORDERED: NON-FORMULARY MEDICATION 1 EA EA (Melatonin 3 MG) PO SCH (21:00)
[2018-10-28] VITALS: BP 133/68
[2018-10-28] MEDS: NS IV 1000 ML 1,000 ML IV SCH ×3 (01:48→21:15)
[2018-10-28 04:40] VITALS: BP 124/69
[2018-10-28] MEDS: CATHETER FLUSH 10 ML SYR IV SCH ×3 (04:56→22:51)
[2018-10-28 08:00] VITALS: BP 129/64
--- NOTE | 2018-10-28 08:24 | Progress Note ---
Subjective Date Seen by a Provider: October 28, 2018 Time Seen by a Provider: 07:40 Subjective/Events-last exam Patient seen and examined at bedside this morning. As per patient's daughter, last night after receiving his sleep medication and then laying down to sleep, he began to feel nauseous and spit up a little bit of blood. He has not had another episode since. We discussed that since his hemoglobin is continuing to decrease that an EGD should be done to evaluate for a source of bleeding, as we had mentioned the previous day. Patient understands the risks and benefits involved with the procedure and agrees to proceed. He denies HICKEY, CP, SOB, abd pain, N/V/D, and weakness. Objective Exam Vital Signs Date Time Temp Pulse Resp B/P (MAP) Pulse Ox O2 Delivery O2 Flow Rate FiO2 10/28/18 07:00 66 10/28/18 04:40 98.0 80 17 124/69 (87) 97 Room Air 10/28/18 01:00 77 10/28/18 00:00 99.0 78 18 133/68 (89) 96 Room Air 10/27/18 20:00 Room Air 10/27/18 19:00 99.1 98 16 157/95 (115) 98 Room Air 10/27/18 19:00 99.1 98 16 157/95 (115) 98 Room Air 10/27/18 19:00 98 10/27/18 16:20 98 10/27/18 16:19 99.3 99 16 149/95 (113) 99 Room Air 10/27/18 14:40 Room Air 10/27/18 13:52 97.6 118 10 165/103 (123) 99 Room Air 10/27/18 13:40 98.5 107 22 160/97 (118) 98 Room Air 10/27/18 13:40 98.5 107 22 160/97 98 Room Air 10/27/18 08:30 97.7 112 18 137/101 (113) 99 Room Air I & O 10/28/18 07:00 Intake Total 3400 ml Output Total 150 ml Balance 3250 ml Capillary Refill : Less Than 3 Seconds General Appearance: No Apparent Distress, WD/WN HEENT: PERRL/EOMI, TMs Normal, Normal ENT Inspection, Pharynx Normal Neck: Full Range of Motion, Normal Inspection, Non Tender, Supple, Carotid Bruit Respiratory: Chest Non Tender, Lungs Clear, Normal Breath Sounds, No Accessory Muscle Use, No Respiratory Distress Cardiovascular: Regular Rate, Rhythm, No Edema, No Gallop, No JVD, No Murmur, Normal Peripheral Pulses Gastrointestinal: normal bowel sounds, soft; No guarding, No rebound; tenderness (minimal lower abdomen) Extremity: Normal Capillary Refill, Normal Inspection, Normal Range of Motion, Non Tender, No Calf Tenderness, No Pedal Edema Neurologic/Psychiatric: Alert, Oriented x3, No Motor/Sensory Deficits, Normal Mood/Affect Skin: Normal Color, Warm/Dry Lymphatic: No Adenopathy Results Lab Laboratory Tests 10/27/18 08:27: White Blood Count 13.3H, Red Blood Count 3.93L, Hemoglobin 12.3L, Hematocrit 37L , Mean Corpuscular Volume 93, Mean Corpuscular Hemoglobin 31, Mean Corpuscular Hemoglobin Concent 34, Red Cell Distribution Width 11.9, Platelet Count 258, Mean Platelet Volume 9.3, Neutrophils (%) (Auto) 79H, Lymphocytes (%) (Auto) 14 , Monocytes (%) (Auto) 6, Eosinophils (%) (Auto) 1, Basophils (%) (Auto) 0, Neutrophils # (Auto) 10.5H, Lymphocytes # (Auto) 1.9, Monocytes # (Auto) 0.8, Eosinophils # (Auto) 0.1, Basophils # (Auto) 0.0, Prothrombin Time 15.3H, INR Comment 1.2, Activated Partial Thromboplast Time 30, Sodium Level 136, Potassium Level 4.1, Chloride Level 101, Carbon Dioxide Level 24, Anion Gap 11, Blood Urea Nitrogen 47H, Creatinine 1.26, Estimat Glomerular Filtration Rate 54 , BUN/Creatinine Ratio 37, Glucose Level 150H, Calcium Level 9.7, Corrected Calcium 9.4, Total Bilirubin 0.7, Aspartate Amino Transf (AST/SGOT) 16, Alanine Aminotransferase (ALT/SGPT) 14, Alkaline Phosphatase 61, Total Protein 7.4, Albumin 4.4, Lipase 5L 10/27/18 15:27: Hemoglobin 9.6#L, Hematocrit 29L 10/27/18 20:28: White Blood Count 7.7, Red Blood Count 2.67L, Hemoglobin 8.5L, Hematocrit 25L, Mean Corpuscular Volume 94, Mean Corpuscular Hemoglobin 32, Mean Corpuscular Hemoglobin Concent 34, Red Cell Distribution Width 11.8, Platelet Count 193, Mean Platelet Volume 9.2, Neutrophils (%) (Auto) 66, Lymphocytes (%) (Auto) 23, Monocytes (%) (Auto) 9, Eosinophils (%) (Auto) 1, Basophils (%) (Auto) 0, Neutrophils # (Auto) 5.1, Lymphocytes # (Auto) 1.8, Monocytes # (Auto) 0.7, Eosinophils # (Auto) 0.1, Basophils # (Auto) 0.0 Assessment/Plan Assessment/Plan Assessment/Plan Hemoptysis Upper GI bleed CAD - EGD planned for this morning; risks and benefits of procedure explained to patient who understands and agrees - Hemoglobin downtrending from 12.3 -> 9.6 -> 8.5 - Continue to Hold Plavix and ASA - Continue PPI - IV Fluids - Will follow Clinical Quality Measures DVT/VTE Risk/Contraindication: Risk Factor Score Per Nursin RFS Level Per Nursing on Admit: 4+=Very High Supervisory-Addendum Brief Supervisory Addendum Participated in pt care: history, MDM, physical, procedure Personally performed: exam, history, MDM, supervision of care Care discussed with: other (Dr. Marquita Marquez) Results interpretation: agree with documentation CED MARQUEZ RESIDENT October 28, 2018 08:24 ANNIE BENZ DO November 03, 2018 16:26
[2018-10-28] MEDS ORDERED: NON-FORMULARY MEDICATION 1 EA EA (Benazepril HCl 10 MG) PO SCH (09:00)
[2018-10-28] MEDS ORDERED: PANTOPRAZOLE 40 MG (PROTONIX) VIAL IV SCH (09:00)
[2018-10-28] MEDS ORDERED: LACTATED RINGERS 1,000 ML IV PRN (09:03)
[2018-10-28] MEDS ORDERED: MIDAZOLAM 2 MG/2 ML (VERSED) VIAL ONE (09:05)
[2018-10-28] MEDS ORDERED: proPOfol 200 MG/20 ML (DIPRIVAN) VIAL IV ONE (09:05)
[2018-10-28] MEDS ORDERED: LACTATED RINGERS 1,000 ML IV ONE ×3 (09:11→10:00)
[2018-10-28] MEDS: PANTOPRAZOLE 40 MG (PROTONIX) VIAL IV SCH ×2 (09:13→21:17)
[2018-10-28] MEDS: lisINopril 10 MG (PRINIVIL) TABLET PO SCH (09:13)
[2018-10-28 09:22] LABS: BASOPHILS % (AUTO) 0 % (0-10); EOSINOPHILS # (AUTO) 0.5 10^3/uL (0.0-0.3); EOSINOPHILS % (AUTO) 5 % (0-10); HEMATOCRIT 28 % (40-54); HEMOGLOBIN 9.3 G/DL (13.3-17.7); LYMPHOCYTES % (AUTO) 22 % (12-44); MEAN CORPUSCULAR HEMOGLOBIN 32 PG (25-34); MEAN CORPUSCULAR HGB CONC 34 G/DL (32-36); MEAN CORPUSCULAR VOLUME 94 FL (80-99); MEAN PLATELET VOLUME 9.8 FL (7.4-10.4); MONOCYTES # (AUTO) 0.6 X 10^3 (0.0-1.0); MONOCYTES % (AUTO) 7 % (0-12); NEUTROPHILS % (AUTO) 66 % (42-75); PLATELET COUNT 215 10^3/uL (130-400); RED CELL DISTRIBUTION WIDTH 12.1 % (10.0-14.5); WHITE BLOOD COUNT 9.2 10^3/uL (4.3-11.0)
[2018-10-28] MEDS ORDERED: HURRICAINE EXT TUBE (BENZOCAINE) XX ONE ×2 (09:45→10:00)
[2018-10-28 09:51] LABS: ALBUMIN 3.8 GM/DL (3.2-4.5); BILIRUBIN,TOTAL 0.5 MG/DL (0.1-1.0); CALCIUM 8.9 MG/DL (8.5-10.1); CREATININE SERUM 1.18 MG/DL (0.60-1.30); TOTAL PROTEIN 6.1 GM/DL (6.4-8.2)
--- NOTE | 2018-10-28 09:54 | NUR ---
0915 PT TO ENDOSCOPY VIA W/C ACCOMPANIED BY ENDOSCOPY STAFF AND DAUGHTER.
--- NOTE | 2018-10-28 10:32 | NUR ---
1005 PT BACK TO ROOM 428 VIA W/C ACCOMPANIED BY DAUGHTER AND ENDOSCOPY STAFF. PT VERBALIZES NO C/O OF PAIN NO NEEDS NOTED, DAUGHTER AND PERSONAL ITEMS WITHIN REACH, WILL CONTINUE TO MONITOR
--- NOTE | 2018-10-28 11:07 | Cardiology Progress Note ---
Subjective Date Seen by Provider: October 28, 2018 Time Seen by Provider: 11:02 Subjective/Events-last exam Patient is in bed, underwent EGD earlier this morning. C/o daily H/A at temporal region for the past 2 weeks and had been taking Motrin frequently. Denies any chest pain or dyspnea. Objective-Cardiology Exam Last Set of Vital Signs Vital Signs 10/28/18 10/28/18 10/28/18 08:00 09:50 09:55 Temp 97.3 Pulse 70 Resp 18 B/P (MAP) 129/64 (85) Pulse Ox 99 O2 Delivery Room Air O2 Flow Rate 10 Capillary Refill : Less Than 3 Seconds I&O Intake and Output 10/28/18 00:00 Intake Total 2400 ml Output Total 150 ml Balance 2250 ml Intake Oral 400 ml IV Total 2000 ml Output Urine Total 125 ml Emesis 25 ml # Voids 3 # Bowel Movements 1 Daily Weight Change No No General: Alert, Oriented X3, Cooperative HEENT: Atraumatic, PERRLA Neck: Supple, No JVD, No Thyromegaly Lungs: Clear to Auscultation, Normal Air Movement Heart: Regular Rate, Normal S1, Normal S2, No Murmurs Abdomen: Normal Bowel Sounds, Soft, No Tenderness, No Hepatosplenomegaly, No Masses Extremities: No Clubbing, No Cyanosis, No Edema, Normal Pulses, No Tenderness/ Swelling Skin: No Rashes, No Breakdown, No Significant Lesion Neuro: Normal Gait, Normal Speech, Strength at 5/5 X4 Ext, Normal Tone, Sensation Intact Psych/Mental Status: Mental Status NL, Mood NL Results Lab Laboratory Tests 10/27/18 15:27 10/27/18 20:28 10/28/18 09:00 A/P-Cardiology Admission Diagnosis Hemoptysis Nausea Coronary artery disease Sinus tachycardia Assessment/Plan Hemoptysis, upper GI bleed. Underwent EGD revealing hiatal hernia, gastritis and gastric ulceration with no active bleeding. Denies any further hemoptysis, continue to monitor. Anemia- continue to monitor H/H. Tachycardia, questionable sinus tachycardia secondary to GI bleed, heart rate improved today, continue to monitor Dizziness and lightheadedness, history of syncope in the past, had a syncopal episode upon waking up at night once in the remote past. Still having occasional episodes of dizziness and lightheadedness with hypotension. Lasix was discontinued in September. Continue to monitor Coronary artery disease-underwent cardiac catheterization on April 08, 2018 revealing severe stenosis at the mid to distal LAD successful primary stenting using Dora 2.515 mm expanded to 2.77 mm with excellent results with no residual stenosis, mild disease at the distal LAD, the LAD is wrap around the apex codominant vessel. Mild disease in the dominant right coronary artery, nonobstructive disease, nondominant circumflex artery. Prominent aortic root and ascending aorta, mild ectasia. Monitoring with serial CT angiogram is recommended. Stress test April 2018 revealed no ischemia or infarct, Plavix was discontinued, hold aspirin for now and monitor Headache- patient reports daily headache for the past 2 weeks, had been taking large amount of Advil. History of Transient ischemic attack, occurred in February 2011 with left leg weakness lasted for 24 hours. Resolved completely, no source of his TIA was noted. 2-D echocardiogram and carotid duplex within normal limits. Continue to monitor. Hypertension, controlled. Has labile hypertension. continue to monitor blood pressure Hyperlipidemia, monitor lipids Peripheral edema-patient reports improvement. Abnormal EKG with RBBB History of neuropathy Clinical Quality Measures DVT/VTE Risk/Contraindication: Risk Factor Score Per Nursin RFS Level Per Nursing on Admit: 4+=Very High YADIRA MOTT October 28, 2018 11:07
[2018-10-28 12:00] VITALS: BP 122/61
[2018-10-28] MEDS: ACETAMINOPHEN 325 MG TABLET PO PRN (13:16)
[2018-10-28 15:25] VITALS: BP 157/81
--- NOTE | 2018-10-28 15:29 | History & Physical-Hospitalist ---
History of Present Illness HPI/Chief Complaint The patient is an 85-year-old white male who presented to the emergency room yesterday. He reported that he felt ill when he had arisen in the morning. He then vomited. This appeared to be dark red blood. He continued to feel ill and ultimately vomited again which also had blood in it he did not have a bowel movement until after he arrived here but he describes it as being very dark in color. He has no past history of ulcer disease. He takes an aspirin a day for cardiac Purposes. He also has been taking ibuprofen several times a day because of headaches. His hemoglobin was 12.3 in the emergency room and fell as low as 8.5. He had EGD this morning which apparently showed gastritis and an ulcer. Date Seen 10/28/18 Time Seen by a Provider: 15:34 Attending Physician Chris Joel MD PCP Emerson Nuñez MD Referring Physician Date of Admission October 27, 2018 at 13:00 Home Medications & Allergies Home Medications Reviewed patient Home Medication Reconciliation performed by pharmacy medication reconciliations automotive repair technician and/or nursing. Patients Allergies have been reviewed. Allergies Allergies Coded Allergies codeine (Verified Allergy, Unknown, 04/08/18) Past Svwgpxe-Zvcduo-Lgbocf Hx Past Med/Social Hx: Reviewed Nursing Past Med/Soc Hx, Reviewed and Corrections made Patient Social History Marrital Status: Employed/Student: retired Alcohol Use: Denies Use Recreational Drug Use: No Smoking Status: Never a Smoker 2nd Hand Smoke Exposure: No Physical Abuse Screen: No Sexual Abuse: No Recent Foreign Travel: No Contact w/other who traveled: No Recent Hopitalizations: No Recent Infectious Disease Expo: No Immunizations Up To Date Pediatric: No Date of Pneumonia Vaccine: Mar 29, 2017 Date of Influenza Vaccine: Mar 25, 2018 Seasonal Allergies Seasonal Allergies: Yes Past Medical History Surgeries: Abdominal (hernia), Coronary Stent Currently Using CPAP: No Currently Using BIPAP: No Cardiac: Coronary Artery Disease, Hypertension Neurological: Stroke Gastrointestinal: Abdominal Hernia Hearing Impairment: Hard of Hearing, Hearing Aide Right, Hearing Aide Left History of Blood Disorders: No Adverse Reaction to Blood [place]: No Family History Cancer (Colon Cancer in mother, diagnosed in her 70's) Review of Systems Constitutional: see HPI EENTM: no symptoms reported Respiratory: no symptoms reported Cardiovascular: no symptoms reported Gastrointestinal: see HPI Genitourinary: no symptoms reported Musculoskeletal: no symptoms reported Psychiatric/Neurological: No Symptoms Reported Physical Exam Physical Exam Vital Signs Capillary Refill : Less Than 3 Seconds Height, Weight, BMI Height: 5'9.00" Weight: 162lbs. 0.0oz. [id number]; 23.9 BMI Method:Stated General Appearance: No Apparent Distress, WD/WN Eyes: Bilateral Eye Normal Inspection HEENT: Normal ENT Inspection Neck: Normal Inspection Respiratory: Chest Non Tender, Lungs Clear, Normal Breath Sounds Cardiovascular: Regular Rate, Rhythm, No Edema, No Gallop, No JVD, No Murmur, Normal Peripheral Pulses Gastrointestinal: Normal Bowel Sounds, No Organomegaly, No Pulsatile Mass Back: Normal Inspection, No CVA Tenderness, No Vertebral Tenderness Extremity: Normal Capillary Refill, Normal Inspection, Normal Range of Motion, Non Tender, No Calf Tenderness, No Pedal Edema Neurologic/Psychiatric: Alert, Oriented x3, No Motor/Sensory Deficits, Normal Mood/Affect Skin: Normal Color, Warm/Dry Lymphatic: No Adenopathy Results Results/Procedures Labs Patient resulted labs reviewed. Assessment/Plan Admission Diagnosis Upper GI bleed Admission Status: Inpatient Order (span 2 midnights) Reason for Inpatient Admission: Week need to prove that blood loss has stopped Clinical Quality Measures DVT/VTE Risk/Contraindication: Risk Factor Score Per Nursin RFS Level Per Nursing on Admit: 4+=Very High CHRIS JOEL MD October 28, 2018 15:29
[2018-10-28] MEDS: SUCRALFATE 1 GM (CARAFATE) TAB PO SCH ×2 (15:59→21:15)
--- NOTE | 2018-10-28 16:16 | Cardiology Progress Note ---
Subjective Date Seen by Provider: October 28, 2018 Time Seen by Provider: 16:15 Subjective/Events-last exam patient is laying down in bed, feeling better, reporting improvement in his headache. Endoscopy was done Review of Systems General: No Chills, No Night Sweats, No Fatigue, No Malaise, No Appetite, No Other HEENT: No Head Aches, No Visual Changes, No Eye Pain, No Ear Pain, No Dysphasia , No Sinus Congestion, No Post Nasal Drip, No Sore Throat, No Other Pulmonary: No Dyspnea, No Cough, No Pleuritic Chest Pain, No Other Cardiovascular: No: Chest Pain, Palpitations, Orthopnea, Paroxysmal Noc. Dyspnea, Edema, Lt Headedness, Other Objective-Cardiology Exam Last Set of Vital Signs Vital Signs 10/28/18 10/28/18 09:50 15:25 Temp 99.1 Pulse 74 Resp 18 B/P (MAP) 157/81 (106) Pulse Ox 99 O2 Delivery Room Air O2 Flow Rate 10 Capillary Refill : Less Than 3 Seconds I&O Intake and Output 10/28/18 00:00 Intake Total 2400 ml Output Total 150 ml Balance 2250 ml Intake Oral 400 ml IV Total 2000 ml Output Urine Total 125 ml Emesis 25 ml # Voids 3 # Bowel Movements 1 Daily Weight Change No No General: Alert, Oriented X3, Cooperative HEENT: Atraumatic, PERRLA Neck: Supple, No JVD, No Thyromegaly Lungs: Clear to Auscultation, Normal Air Movement Heart: Regular Rate, Normal S1, Normal S2, No Murmurs Abdomen: Normal Bowel Sounds, Soft, No Tenderness, No Hepatosplenomegaly, No Masses Extremities: No Clubbing, No Cyanosis, No Edema, Normal Pulses, No Tenderness/ Swelling Skin: No Rashes, No Breakdown, No Significant Lesion Neuro: Normal Gait, Normal Speech, Strength at 5/5 X4 Ext, Normal Tone, Sensation Intact Psych/Mental Status: Mental Status NL, Mood NL Results Lab Laboratory Tests 10/27/18 20:28 10/28/18 09:00 A/P-Cardiology Admission Diagnosis Hemoptysis Nausea Coronary artery disease Sinus tachycardia Assessment/Plan Hemoptysis, upper GI bleed. Underwent EGD revealing hiatal hernia, gastritis and gastric ulceration with no active bleeding. Denies any further hemoptysis or hematemesis, continue to monitor. Anemia- continue to monitor H/H. Tachycardia, questionable sinus tachycardia secondary to GI bleed, heart rate improved today, continue to monitor Dizziness and lightheadedness, history of syncope in the past, had a syncopal episode upon waking up at night once in the remote past. Still having occasional episodes of dizziness and lightheadedness with hypotension. Lasix was discontinued in September. Continue to monitor Coronary artery disease-underwent cardiac catheterization on April 08, 2018 revealing severe stenosis at the mid to distal LAD successful primary stenting using Dora 2.515 mm expanded to 2.77 mm with excellent results with no residual stenosis, mild disease at the distal LAD, the LAD is wrap around the apex codominant vessel. Mild disease in the dominant right coronary artery, nonobstructive disease, nondominant circumflex artery. Prominent aortic root and ascending aorta, mild ectasia. Monitoring with serial CT angiogram is recommended. Stress test April 2018 revealed no ischemia or infarct, Plavix was discontinued, hold aspirin for now and monitor Headache- patient reports daily headache for the past 2 weeks, had been taking large amount of Advil, currently better on Tylenol. Continue to monitor closely , consideration for possible other causes for headache History of Transient ischemic attack, occurred in February 2011 with left leg weakness lasted for 24 hours. Resolved completely, no source of his TIA was noted. 2-D echocardiogram and carotid duplex within normal limits. Continue to monitor. Hypertension, controlled. Has labile hypertension. continue to monitor blood pressure Hyperlipidemia, monitor lipids Peripheral edema-patient reports improvement. Abnormal EKG with RBBB History of neuropathy Clinical Quality Measures DVT/VTE Risk/Contraindication: Risk Factor Score Per Nursin RFS Level Per Nursing on Admit: 4+=Very High ANAMIKA GRIMES MD October 28, 2018 16:16
[2018-10-28] MEDS: GABAPENTIN 300 MG (NEURONTIN) CAP PO SCH ×2 (17:18→21:16)
--- NOTE | 2018-10-28 18:55 | NUR ---
1745 PT HAVING EPISODES OF SHAKING, STATES "I'VE NEVER HAD IT BEFORE", BLOOD SUGAR CHECKED NOTED AT 132, THIS RN CHECKED WITH PHARMACIST SHEFALI REGARDING SIDE EFFECTS OF CARAFATE, 1825 PT NO LONGER HAVING THE SHAKING EPISODES, PT RESTING IN BED QUIETLY, DAUGHTER AT BEDSIDE, NO NEEDS NOTED AT THIS TIME WILL CONTINUE TO MONITOR.
[2018-10-28 20:10] VITALS: BP 148/85
[2018-10-28 20:28] LABS: BASOPHILS % (AUTO) 0 % (0-10); EOSINOPHILS # (AUTO) 0.8 10^3/uL (0.0-0.3); EOSINOPHILS % (AUTO) 10 % (0-10); HEMATOCRIT 23 % (40-54); HEMOGLOBIN 7.6 G/DL (13.3-17.7); LYMPHOCYTES # (AUTO) 1.6 X 10^3 (1.0-4.0); LYMPHOCYTES % (AUTO) 21 % (12-44); MEAN CORPUSCULAR HEMOGLOBIN 31 PG (25-34); MEAN CORPUSCULAR HGB CONC 33 G/DL (32-36); MEAN CORPUSCULAR VOLUME 95 FL (80-99); MEAN PLATELET VOLUME 9.4 FL (7.4-10.4); MONOCYTES # (AUTO) 0.6 X 10^3 (0.0-1.0); MONOCYTES % (AUTO) 7 % (0-12); NEUTROPHILS # (AUTO) 4.7 X 10^3 (1.8-7.8); NEUTROPHILS % (AUTO) 62 % (42-75); PLATELET COUNT 184 10^3/uL (130-400); RED CELL DISTRIBUTION WIDTH 12.2 % (10.0-14.5); WHITE BLOOD COUNT 7.7 10^3/uL (4.3-11.0)
--- NOTE | 2018-10-28 20:59 | OPERATIVE REPORT ---
DATE OF SERVICE: 10/28/2018 PREOPERATIVE DIAGNOSIS: Upper GI bleed, hematemesis. POSTOPERATIVE DIAGNOSES: Hiatal hernia, antral ulcers, and gastritis. PROCEDURE: EGD. SURGEON: Annie Jacobs DO ANESTHESIA: Per BAND SAWING MACHINE OPERATOR. ESTIMATED BLOOD LOSS: None. COMPLICATIONS: None. INDICATIONS: The patient is an 87-year-old male who was admitted with hematemesis. He has had slow drop in his hemoglobin since admission. He is on Plavix and aspirin. That has been on hold. He understands risks and benefits of procedure and wished to proceed with procedure. Consent was signed on the chart. DESCRIPTION OF PROCEDURE: The patient in the endoscopy suite placed in left lower recumbent position. Timeout was performed. Scope was inserted in mouth, down the esophagus, stomach and duodenum. There were no polyps, masses or ulcerations to bladder. Scope was slowly retracted back into the stomach where it was further insufflated. Erythematous changes consistent with gastritis. Several small ulcers present. No active bleeding. Scope was retroflexed noting a small hiatal hernia, no other pathology noted. Scope was returned to its normal position, slowly withdrawn to the distal esophagus. There are no polyps, mass or ulcerations. No erythematous changes. Scope was slowly retracted back until completely removed. The patient was taken to recovery room in stable condition. RECOMMENDATIONS: The patient is to continue on Protonix. We will add Carafate 1 gram four times a day. Continue to monitor hemoglobin. We will continue to hold Plavix and aspirin for now. I would recommend repeat EGD in the near future for possible biopsy. Due to being on Plavix and aspirin this was not performed at this time. Job ID: [id number] DocumentID: [id number] Dictated Date: 10/28/2018 13:14:21 Fishing Boat Captain Date: 10/28/2018 20:59:00 Dictated By: ANNIE JACOBS DO
[2018-10-28] MEDS: traZODone 100 MG (DESYREL) TAB PO SCH (21:15)
[2018-10-28] MEDS: MELATONIN 3 MG TABLET PO SCH (21:16)
[2018-10-28] MEDS: FAMOTIDINE 20MG/2ML IV (PEPCID) IV SCH (21:17)
[2018-10-29] VITALS (12 sets, daily range): BP systolic 116–186; BP diastolic 68–89
[2018-10-29 05:49] LABS: RED CELL DISTRIBUTION WIDTH 12.1 % (10.0-14.5); WHITE BLOOD COUNT 5.8 10^3/uL (4.3-11.0)
[2018-10-29] MEDS: SUCRALFATE 1 GM (CARAFATE) TAB PO SCH ×4 (06:02→20:13)
[2018-10-29] MEDS: CATHETER FLUSH 10 ML SYR IV SCH ×3 (06:02→20:14)
[2018-10-29] MEDS: NS IV 1000 ML 1,000 ML IV SCH ×2 (06:03→17:57)
[2018-10-29 06:08] LABS: HEMOGLOBIN 6.6 G/DL (13.3-17.7)
--- NOTE | 2018-10-29 06:12 | NUR ---
CONTACTED DR JOEL REGARDING PATIENTS CRITICAL H/H HBG 6.6/HCT 20. NO ORDERS AT THIS TIME
--- NOTE | 2018-10-29 07:02 | NUR ---
PER DR JOEL, TYPE AND CROSS FOR 2 UNITS GIVE ONE WHEN READY.
--- NOTE | 2018-10-29 08:00 | NUR ---
DR GRIMES HERE, ORDERED TO TRANSFUSE 2 UNITS PACKED RED CELL, HG 6.6, STATES HE HAD BLACK STOOL LAST NIGHT, DR BENZ NOTIFIED AND ORDER GIVEN TO MAKE NPO UNTIL SEEN BY DR BENZ
--- NOTE | 2018-10-29 08:26 | NUR ---
FIRST UNIT PRC HUNG TO INFUSE AT 75ML HOUR
[2018-10-29] MEDS: PANTOPRAZOLE 40 MG (PROTONIX) VIAL IV SCH ×2 (08:32→20:13)
[2018-10-29] MEDS: lisINopril 10 MG (PRINIVIL) TABLET PO SCH (08:33)
--- NOTE | 2018-10-29 09:33 | Cardiology Progress Note ---
Subjective Date Seen by Provider: October 29, 2018 Time Seen by Provider: 09:31 Subjective/Events-last exam patient is laying down in bed, denied any chest pain, had diarrhea with black tarry stool Review of Systems General: No Chills, No Night Sweats, No Fatigue, No Malaise, No Appetite, No Other HEENT: No Head Aches, No Visual Changes, No Eye Pain, No Ear Pain, No Dysphasia , No Sinus Congestion, No Post Nasal Drip, No Sore Throat, No Other Pulmonary: No Dyspnea, No Cough, No Pleuritic Chest Pain, No Other Cardiovascular: No: Chest Pain, Palpitations, Orthopnea, Paroxysmal Noc. Dyspnea, Edema, Lt Headedness, Other Objective-Cardiology Exam Last Set of Vital Signs Vital Signs 10/28/18 10/29/18 09:50 08:48 Temp 98.0 Pulse 70 Resp 18 B/P (MAP) 149/72 Pulse Ox 96 O2 Delivery Room Air O2 Flow Rate 10 Capillary Refill : Less Than 3 Seconds I&O Intake and Output 10/29/18 00:00 Intake Total 3270 ml Balance 3270 ml Intake Oral 870 ml IV Total 2400 ml # Voids 10 # Bowel Movements 6 General: Alert, Oriented X3, Cooperative HEENT: Atraumatic, PERRLA Neck: Supple, No JVD, No Thyromegaly Lungs: Clear to Auscultation, Normal Air Movement Heart: Regular Rate, Normal S1, Normal S2, No Murmurs Abdomen: Normal Bowel Sounds, Soft, No Tenderness, No Hepatosplenomegaly, No Masses Extremities: No Clubbing, No Cyanosis, No Edema, Normal Pulses, No Tenderness/ Swelling Skin: No Rashes, No Breakdown, No Significant Lesion Neuro: Normal Gait, Normal Speech, Strength at 5/5 X4 Ext, Normal Tone, Sensation Intact Psych/Mental Status: Mental Status NL, Mood NL Results Lab Laboratory Tests 10/28/18 20:25 10/29/18 05:25 A/P-Cardiology Admission Diagnosis Hemoptysis Nausea Coronary artery disease Sinus tachycardia Assessment/Plan GI bleed, had one episode of hematemesis, black tarry stools last night. Significant drop in H&H, endoscopy was done which showed gastric ulcer but no active bleeding was identified. I will transfuse 2 units of packed RBCs and monitor H&H closely Tachycardia, probably secondary to anemia. Heart rate is better. Continue to monitor Dizziness and lightheadedness, history of syncope in the past, had a syncopal episode upon waking up at night once in the remote past. Still having occasional episodes of dizziness and lightheadedness with hypotension. Lasix was discontinued in September. Continue to monitor Coronary artery disease-underwent cardiac catheterization on April 08, 2018 revealing severe stenosis at the mid to distal LAD successful primary stenting using Dora 2.515 mm expanded to 2.77 mm with excellent results with no residual stenosis, mild disease at the distal LAD, the LAD is wrap around the apex codominant vessel. Mild disease in the dominant right coronary artery, nonobstructive disease, nondominant circumflex artery. Prominent aortic root and ascending aorta, mild ectasia. Monitoring with serial CT angiogram is recommended. Stress test April 2018 revealed no ischemia or infarct, Plavix was discontinued, hold aspirin for now and monitor Headache- patient reports daily headache for the past 2 weeks, had been taking large amount of Advil, currently better on Tylenol. Continue to monitor closely , consideration for possible other causes for headache History of Transient ischemic attack, occurred in February 2011 with left leg weakness lasted for 24 hours. Resolved completely, no source of his TIA was noted. 2-D echocardiogram and carotid duplex within normal limits. Continue to monitor. Hypertension, controlled. Has labile hypertension. continue to monitor blood pressure Hyperlipidemia, monitor lipids Peripheral edema-patient reports improvement. Abnormal EKG with RBBB History of neuropathy Clinical Quality Measures DVT/VTE Risk/Contraindication: Risk Factor Score Per Nursin RFS Level Per Nursing on Admit: 4+=Very High ANAMIKA GRIMES MD October 29, 2018 09:33
[2018-10-29] MEDS: ACETAMINOPHEN 325 MG TABLET PO PRN (11:19)
--- NOTE | 2018-10-29 12:44 | Progress Note-Hospitalist ---
Progress Note Progress Notes/Assess & Plan Date Seen 10/29/18 Time Seen by Provider: 12:39 Assessment & Plan We had hoped to be able to discharge the patient today. However his a.m. lab was reported to me at 0600 and his hemoglobin had fallen to 6.6. Accordingly he was typed and crossed for 2 units of blood and is currently receiving his second unit. Given his age and heart issues he would be probably a target for approximately a hemoglobin of 10. He reports no pain or other problems. Physical exam: He is alert and pleasant. His hearing difficulties make for communication difficulties. Lungs are clear to auscultation. CV is regular. Impression: GI bleed. Number 2 Anemia secondary to number 1. Number 3 recent intervention for coronary artery disease and therefore the use of Plavix. Repeat CBC at 1800 plan he will need to remain stable at least till morning to consider discharge BRANDON JOEL MD October 29, 2018 12:44
--- NOTE | 2018-10-29 15:22 | Progress Note ---
Subjective Date Seen by a Provider: October 29, 2018 Time Seen by a Provider: 12:10 Subjective/Events-last exam Patient seen and examined at bedside today s/p receiving 2 units of PRBC. He had an episode of "black tarry stool" yesterday and had another drop in his hemoglobin. He endorses some light headedness/dizziness and weakness, however denies CP, SOB, abdominal pain, N/V/D, headache and chills. Objective Exam Vital Signs Date Time Temp Pulse Resp B/P (MAP) Pulse Ox O2 Delivery O2 Flow Rate FiO2 10/29/18 14:10 98.3 74 20 172/74 99 Room Air 10/29/18 13:01 70 10/29/18 12:00 98.8 78 18 160/78 (105) 98 Room Air 10/29/18 11:20 98.2 68 16 164/79 OxyMask 10/29/18 11:13 98.8 78 20 160/78 98 Room Air 10/29/18 11:00 98.8 78 20 160/78 98 Room Air 10/29/18 08:48 98.0 70 18 149/72 96 Room Air 10/29/18 08:25 97.8 77 18 176/82 97 Room Air 10/29/18 08:00 98.9 76 18 176/82 (113) 97 Room Air 10/29/18 08:00 Room Air 10/29/18 07:00 85 10/29/18 04:38 98.0 75 20 119/70 (86) 96 Room Air 10/29/18 00:53 78 10/29/18 00:00 98.7 84 20 116/68 (84) 95 Room Air 10/28/18 20:10 99.0 78 18 148/85 (106) 97 Room Air 10/28/18 20:00 Room Air 10/28/18 19:00 83 10/28/18 15:25 99.1 74 18 157/81 (106) 99 Room Air I & O 10/29/18 07:00 Intake Total 3670 ml Balance 3670 ml Capillary Refill : Less Than 3 Seconds General Appearance: No Apparent Distress, WD/WN HEENT: Normal ENT Inspection Neck: Normal Inspection Respiratory: Chest Non Tender, Lungs Clear, Normal Breath Sounds Cardiovascular: Regular Rate, Rhythm, No Edema, No Gallop, No JVD, No Murmur, Normal Peripheral Pulses Gastrointestinal: normal bowel sounds, non tender, soft; No guarding, No rebound Extremity: Normal Capillary Refill, Normal Inspection, Normal Range of Motion, Non Tender, No Calf Tenderness, No Pedal Edema Neurologic/Psychiatric: Alert, Oriented x3, No Motor/Sensory Deficits, Normal Mood/Affect Skin: Normal Color, Warm/Dry Lymphatic: No Adenopathy Results Lab Laboratory Tests 10/28/18 17:46: Glucometer 132H 10/28/18 20:25: White Blood Count 7.7, Red Blood Count 2.45L, Hemoglobin 7.6L, Hematocrit 23L, Mean Corpuscular Volume 95, Mean Corpuscular Hemoglobin 31, Mean Corpuscular Hemoglobin Concent 33, Red Cell Distribution Width 12.2, Platelet Count 184, Mean Platelet Volume 9.4, Neutrophils (%) (Auto) 62, Lymphocytes (%) (Auto) 21, Monocytes (%) (Auto) 7, Eosinophils (%) (Auto) 10, Basophils (%) (Auto) 0, Neutrophils # (Auto) 4.7, Lymphocytes # (Auto) 1.6, Monocytes # (Auto) 0.6, Eosinophils # (Auto) 0.8H, Basophils # (Auto) 0.0 10/29/18 05:25: White Blood Count 5.8, Red Blood Count 2.15L, Hemoglobin 6.6*L, Hematocrit 20*L , Mean Corpuscular Volume 95, Mean Corpuscular Hemoglobin 31, Mean Corpuscular Hemoglobin Concent 32, Red Cell Distribution Width 12.1, Platelet Count 160, Mean Platelet Volume 9.0 10/29/18 05:30: C-Reactive Protein High Sensitivity 0.71H Assessment/Plan Assessment/Plan Assessment/Plan Hemoptysis Upper GI bleed Anemia CAD s/p egd Hiatal hernia, antral ulcer, gastritis - EGD performed yesterday showed no signs of active bleeding - Hemoglobin continuing to downtrend from 12.3 -> 9.6 -> 8.5 -> 6.6 - S/P 2 Units PRBC transfusion this morning - Monitor H/H; with goal Hgb above 8.0 - Continue to Hold Plavix and ASA - Continue PPI - IV Fluids Clear liquids - Will follow Clinical Quality Measures DVT/VTE Risk/Contraindication: Risk Factor Score Per Nursin RFS Level Per Nursing on Admit: 4+=Very High Supervisory-Addendum Brief Supervisory Addendum Participated in pt care: history, MDM, physical Personally performed: exam, history, MDM, supervision of care Care discussed with: other (Dr. Marquita Marquez) Results interpretation: agree with documentation CED MARQUEZ RESIDENT October 29, 2018 15:22 ANNIE BENZ DO October 29, 2018 21:07
[2018-10-29] MEDS: GABAPENTIN 300 MG (NEURONTIN) CAP PO SCH ×2 (17:53→20:13)
[2018-10-29 18:06] LABS: BASOPHILS % (AUTO) 1 % (0-10); EOSINOPHILS % (AUTO) 12 % (0-10); HEMATOCRIT 32 % (40-54); HEMOGLOBIN 10.8 G/DL (13.3-17.7); LYMPHOCYTES # (AUTO) 1.9 X 10^3 (1.0-4.0); LYMPHOCYTES % (AUTO) 24 % (12-44); MEAN CORPUSCULAR HEMOGLOBIN 31 PG (25-34); MEAN CORPUSCULAR HGB CONC 34 G/DL (32-36); MEAN CORPUSCULAR VOLUME 92 FL (80-99); MEAN PLATELET VOLUME 9.4 FL (7.4-10.4); MONOCYTES # (AUTO) 0.6 X 10^3 (0.0-1.0); MONOCYTES % (AUTO) 8 % (0-12); NEUTROPHILS # (AUTO) 4.4 X 10^3 (1.8-7.8); NEUTROPHILS % (AUTO) 56 % (42-75); PLATELET COUNT 189 10^3/uL (130-400); RED CELL DISTRIBUTION WIDTH 13.2 % (10.0-14.5); WHITE BLOOD COUNT 7.9 10^3/uL (4.3-11.0)
[2018-10-29] MEDS: traZODone 100 MG (DESYREL) TAB PO SCH (20:13)
[2018-10-29] MEDS: MELATONIN 3 MG TABLET PO SCH (20:13)
[2018-10-29] MEDS: FAMOTIDINE 20MG/2ML IV (PEPCID) IV SCH (20:14)
[2018-10-30 00:27] VITALS: BP 108/65
[2018-10-30] MEDS: NS IV 1000 ML 1,000 ML IV SCH (01:20)
[2018-10-30 04:55] VITALS: BP 113/58
[2018-10-30 05:09] VITALS: BP 113/58
[2018-10-30] MEDS: SUCRALFATE 1 GM (CARAFATE) TAB PO SCH ×3 (05:19→15:03)
[2018-10-30] MEDS: CATHETER FLUSH 10 ML SYR IV SCH (05:20)
[2018-10-30 05:59] LABS: BASOPHILS % (AUTO) 1 % (0-10); EOSINOPHILS # (AUTO) 0.9 10^3/uL (0.0-0.3); EOSINOPHILS % (AUTO) 16 % (0-10); HEMATOCRIT 27 % (40-54); HEMOGLOBIN 8.9 G/DL (13.3-17.7); LYMPHOCYTES # (AUTO) 1.4 X 10^3 (1.0-4.0); LYMPHOCYTES % (AUTO) 26 % (12-44); MEAN CORPUSCULAR HEMOGLOBIN 31 PG (25-34); MEAN CORPUSCULAR HGB CONC 34 G/DL (32-36); MEAN CORPUSCULAR VOLUME 92 FL (80-99); MEAN PLATELET VOLUME 9.4 FL (7.4-10.4); MONOCYTES # (AUTO) 0.6 X 10^3 (0.0-1.0); MONOCYTES % (AUTO) 11 % (0-12); NEUTROPHILS # (AUTO) 2.6 X 10^3 (1.8-7.8); NEUTROPHILS % (AUTO) 47 % (42-75); PLATELET COUNT 160 10^3/uL (130-400); RED CELL DISTRIBUTION WIDTH 13.1 % (10.0-14.5); WHITE BLOOD COUNT 5.5 10^3/uL (4.3-11.0)
[2018-10-30 08:00] VITALS: BP 143/98
--- NOTE | 2018-10-30 08:03 | Cardiology Progress Note ---
Subjective Date Seen by Provider: October 30, 2018 Time Seen by Provider: 08:01 Subjective/Events-last exam Patient is in bed, feeling better, tolerating food, no diarrhea Review of Systems General: No Chills, No Night Sweats, No Fatigue, No Malaise, No Appetite, No Other HEENT: No Head Aches, No Visual Changes, No Eye Pain, No Ear Pain, No Dysphasia , No Sinus Congestion, No Post Nasal Drip, No Sore Throat, No Other Pulmonary: No Dyspnea, No Cough, No Pleuritic Chest Pain, No Other Cardiovascular: No: Chest Pain, Palpitations, Orthopnea, Paroxysmal Noc. Dyspnea, Edema, Lt Headedness, Other Objective-Cardiology Exam Last Set of Vital Signs Vital Signs 10/28/18 10/30/18 10/30/18 09:50 05:09 07:00 Temp 98.5 Pulse 73 Resp 18 B/P (MAP) 113/58 (76) Pulse Ox 97 O2 Delivery Room Air O2 Flow Rate 10 Capillary Refill : Less Than 3 Seconds I&O Intake and Output 10/30/18 00:00 Intake Total 2390 ml Output Total 500 ml Balance 1890 ml Intake Oral 1290 ml IV Total 1000 ml Other 100 ml Output Urine Total 500 ml # Voids 8 # Bowel Movements 4 General: Alert, Oriented X3, Cooperative HEENT: Atraumatic, PERRLA Neck: Supple, No JVD, No Thyromegaly Lungs: Clear to Auscultation, Normal Air Movement Heart: Regular Rate, Normal S1, Normal S2, No Murmurs Abdomen: Normal Bowel Sounds, Soft, No Tenderness, No Hepatosplenomegaly, No Masses Extremities: No Clubbing, No Cyanosis, No Edema, Normal Pulses, No Tenderness/ Swelling Skin: No Rashes, No Breakdown, No Significant Lesion Neuro: Normal Gait, Normal Speech, Strength at 5/5 X4 Ext, Normal Tone, Sensation Intact Psych/Mental Status: Mental Status NL, Mood NL Results Lab Laboratory Tests 10/29/18 18:00 10/30/18 05:30 A/P-Cardiology Admission Diagnosis Hemoptysis Nausea Coronary artery disease Sinus tachycardia Assessment/Plan GI bleed, had one episode of hematemesis, black tarry stools last night, received 2 units of packed RBCs yesterday, feeling better today. Managed by Dr. Jacobs EGD was done on October 28, 2018 showing gastritis and peptic ulcer disease. Maintained on PPI Tachycardia, probably secondary to anemia. Heart rate is better. Continue to monitor Dizziness and lightheadedness, history of syncope in the past, had a syncopal episode upon waking up at night once in the remote past. Still having occasional episodes of dizziness and lightheadedness with hypotension. Lasix was discontinued in September. Continue to monitor Coronary artery disease-underwent cardiac catheterization on April 08, 2018 revealing severe stenosis at the mid to distal LAD successful primary stenting using Dora 2.515 mm expanded to 2.77 mm with excellent results with no residual stenosis, mild disease at the distal LAD, the LAD is wrap around the apex codominant vessel. Mild disease in the dominant right coronary artery, nonobstructive disease, nondominant circumflex artery. Prominent aortic root and ascending aorta, mild ectasia. Monitoring with serial CT angiogram is recommended. Stress test April 2018 revealed no ischemia or infarct, Plavix was discontinued, hold aspirin for now and monitor Headache- patient reports daily headache for the past 2 weeks, had been taking large amount of Advil, currently better on Tylenol. Continue to monitor closely , consideration for possible other causes for headache History of Transient ischemic attack, occurred in February 2011 with left leg weakness lasted for 24 hours. Resolved completely, no source of his TIA was noted. 2-D echocardiogram and carotid duplex within normal limits. Continue to monitor. Hypertension, controlled. Has labile hypertension. continue to monitor blood pressure Hyperlipidemia, monitor lipids Peripheral edema-patient reports improvement. Abnormal EKG with RBBB History of neuropathy Clinical Quality Measures DVT/VTE Risk/Contraindication: Risk Factor Score Per Nursin RFS Level Per Nursing on Admit: 4+=Very High ANAMIKA GRIMES MD October 30, 2018 08:03
[2018-10-30] MEDS: lisINopril 10 MG (PRINIVIL) TABLET PO SCH (09:18)
[2018-10-30] MEDS: PANTOPRAZOLE 40 MG (PROTONIX) VIAL IV SCH (09:19)
--- NOTE | 2018-10-30 09:26 | Progress Note ---
Subjective Date Seen by a Provider: October 30, 2018 Time Seen by a Provider: 09:00 Subjective/Events-last exam Patient seen and examined at bedside this morning with no acute events reported overnight. He no longer endorses dark tarry stools, however he has not had a bowel movement since yesterday. He received 2 units of PRBC yesterday due to a hemoglobin of 6.6. He tolerated the transfusion well and has no complaints at this time. He denies SOB, CP, abd pain, N/V/D, weakness, and chills. Has slight drop in hgb since after transfusion. On clear liquids. Objective Exam Vital Signs Date Time Temp Pulse Resp B/P (MAP) Pulse Ox O2 Delivery O2 Flow Rate FiO2 10/30/18 08:00 98.2 66 18 143/98 (113) 99 Room Air 10/30/18 07:00 73 10/30/18 05:09 98.5 76 18 113/58 (76) 97 Room Air 10/30/18 04:55 98.5 76 18 113/58 (76) 97 Room Air 10/30/18 00:40 65 10/30/18 00:27 98.0 79 18 108/65 (79) 95 Room Air 10/29/18 20:54 Room Air 10/29/18 19:35 98.4 79 20 177/89 (118) 99 Room Air 10/29/18 19:00 80 10/29/18 15:35 98.9 69 20 186/88 (120) 99 Room Air 10/29/18 14:10 98.3 74 20 172/74 99 Room Air 10/29/18 13:01 70 10/29/18 12:00 98.8 78 18 160/78 (105) 98 Room Air 10/29/18 11:20 98.2 68 16 164/79 OxyMask 10/29/18 11:13 98.8 78 20 160/78 98 Room Air 10/29/18 11:00 98.8 78 20 160/78 98 Room Air I & O 10/30/18 07:00 Intake Total 2090 ml Output Total 1575 ml Balance 515 ml Capillary Refill : Less Than 3 Seconds General Appearance: No Apparent Distress, WD/WN HEENT: PERRL/EOMI, Normal ENT Inspection Neck: Normal Inspection Respiratory: Chest Non Tender, Lungs Clear, Normal Breath Sounds Cardiovascular: Regular Rate, Rhythm, No Edema, No Gallop, No JVD, No Murmur, Normal Peripheral Pulses Gastrointestinal: normal bowel sounds, non tender, soft; No guarding, No rebound Extremity: Normal Capillary Refill, Normal Inspection, Normal Range of Motion, Non Tender, No Calf Tenderness, No Pedal Edema Neurologic/Psychiatric: Alert, Oriented x3, No Motor/Sensory Deficits, Normal Mood/Affect Skin: Normal Color, Warm/Dry Lymphatic: No Adenopathy Results Lab Laboratory Tests 10/29/18 18:00: White Blood Count 7.9, Red Blood Count 3.48L, Hemoglobin 10.8#L, Hematocrit 32L , Mean Corpuscular Volume 92, Mean Corpuscular Hemoglobin 31, Mean Corpuscular Hemoglobin Concent 34, Red Cell Distribution Width 13.2, Platelet Count 189, Mean Platelet Volume 9.4, Neutrophils (%) (Auto) 56, Lymphocytes (%) (Auto) 24, Monocytes (%) (Auto) 8, Eosinophils (%) (Auto) 12H, Basophils (%) (Auto) 1, Neutrophils # (Auto) 4.4, Lymphocytes # (Auto) 1.9, Monocytes # (Auto) 0.6, Eosinophils # (Auto) 1.0H, Basophils # (Auto) 0.0 10/30/18 05:30: White Blood Count 5.5, Red Blood Count 2.88L, Hemoglobin 8.9L, Hematocrit 27L, Mean Corpuscular Volume 92, Mean Corpuscular Hemoglobin 31, Mean Corpuscular Hemoglobin Concent 34, Red Cell Distribution Width 13.1, Platelet Count 160, Mean Platelet Volume 9.4, Neutrophils (%) (Auto) 47, Lymphocytes (%) (Auto) 26, Monocytes (%) (Auto) 11, Eosinophils (%) (Auto) 16H, Basophils (%) (Auto) 1, Neutrophils # (Auto) 2.6, Lymphocytes # (Auto) 1.4, Monocytes # (Auto) 0.6, Eosinophils # (Auto) 0.9H, Basophils # (Auto) 0.0 Assessment/Plan Assessment/Plan Assessment/Plan Hemoptysis Upper GI bleed Anemia CAD s/p egd Hiatal hernia, antral ulcer, gastritis - EGD performed 2 days ago showed no signs of active bleeding - Hemoglobin dropped to 6.6 requiring 2 units PRBC - Hemoglobin after transfusion of 10.8 followed by morning Hgb of 8.9 - Monitor H/H; with goal Hgb above 8.0 - If hemoglobin stabilizes can consider discharge - Continue to Hold Plavix and ASA - Continue PPI/Carafte - IV Fluids - Clear liquids - advance as tolerated - Will follow Clinical Quality Measures DVT/VTE Risk/Contraindication: Risk Factor Score Per Nursin RFS Level Per Nursing on Admit: 4+=Very High Supervisory-Addendum Brief Supervisory Addendum Participated in pt care: history, MDM, physical Personally performed: exam, history, MDM, supervision of care Care discussed with: other (Dr. Marquita Marquez) Results interpretation: agree with documentation CED MARQUEZ RESIDENT October 30, 2018 09:26 ANNIE BENZ DO October 30, 2018 18:00
--- NOTE | 2018-10-30 10:46 | Progress Note-Hospitalist ---
Progress Note Progress Notes/Assess & Plan Date Seen 10/30/18 Time Seen by Provider: 10:40 Assessment & Plan The patient reports he is doing well. He is hungry. The stools have cleared. After transfusion yesterday his hemoglobin had climbed from 6600-10,800. The morning hemoglobin was 8.9. They are anxious to leave. And I have compromised. If the hemoglobin at 1500 hours is stable he can be discharged later this afternoon. Physical exam: Lungs are clear to auscultation. CV is regular without murmur. Abdomen is soft and nontender. Impression: GI bleed secondary to gastritis and duodenal ulcer. Plan: Await 1500 CBC. BRANDON JOEL MD October 30, 2018 10:46
--- NOTE | 2018-10-30 10:54 | Discharge Inst-Simple/Standard ---
Discharge Inst-Standard Patient Instructions/Follow Up Plan of Care/Instructions/FU: Medications as listed in the discharge sequence. Increase activity slowly and as tolerated. Observe stools for color. Activity as Tolerated: Yes Discharge Diet: Eat Small Frequent Meals Return to The Hospital For: Evidence of continued GI bleeding Copy Copies To 1: VEL DE LA GARZA MD, RODNEY K MD October 30, 2018 10:53
[2018-10-30 12:00] VITALS: BP 142/71
[2018-10-30 15:23] LABS: BASOPHILS % (AUTO) 0 % (0-10); EOSINOPHILS # (AUTO) 0.8 10^3/uL (0.0-0.3); EOSINOPHILS % (AUTO) 13 % (0-10); HEMATOCRIT 29 % (40-54); HEMOGLOBIN 9.8 G/DL (13.3-17.7); LYMPHOCYTES % (AUTO) 31 % (12-44); MEAN CORPUSCULAR HEMOGLOBIN 31 PG (25-34); MEAN CORPUSCULAR HGB CONC 34 G/DL (32-36); MEAN CORPUSCULAR VOLUME 92 FL (80-99); MEAN PLATELET VOLUME 9.3 FL (7.4-10.4); MONOCYTES # (AUTO) 0.7 X 10^3 (0.0-1.0); MONOCYTES % (AUTO) 10 % (0-12); NEUTROPHILS % (AUTO) 46 % (42-75); PLATELET COUNT 169 10^3/uL (130-400); RED CELL DISTRIBUTION WIDTH 13.4 % (10.0-14.5); WHITE BLOOD COUNT 6.5 10^3/uL (4.3-11.0)
[2018-10-30 15:45] LABS: EOSINOPHILS % (MANUAL) 10 %; LYMPHOCYTES % (MANUAL) 23 %; MONOCYTES % (MANUAL) 7 %; NEUTROPHILS % (MANUAL) 59 %; RBC MORPH NORMAL
[2018-10-30] MEDS ORDERED: SUCR1ORA5 PO (15:57)
[2018-10-30] MEDS ORDERED: PANT40SU PO (15:58)
[2018-10-30 16:30] VITALS: BP 142/71
--- NOTE | 2018-10-30 16:30 | NUR ---
GIGI VILLA demonstrates understanding of discharge instructions and accurately returns instructions upon questioning. Copy of Post-Discharge Instructions given to PT. GIGI VILLA is able to manage continuing needs after discharge. Patients belongings returned to PT. Patient discharged from 428-1 on 10/30/18 at 1630. GIGI VILLA left floor via W/C, accompanied by STAFF AND FAMILY PER AUTO.
--- NOTE | 2018-11-03 21:41 | Physician Query Clarification ---
PQ-Further Specificity Admission/Discharge Admission Date: October 29, 2018 at 14:24 Discharge Date: October 30, 2018 at 16:30 The medical record reflects the following clinical scenario: History/Risk Factors: GI bleed Clinical Findings: Anemia, no current bleed found Treatment: Transfusion Question: Can you further specify ANEMIA per the clinical indicators above? Please document below. 1. Acute blood loss anemia 2. Chronic blood loss anemia 3. Anemia, unspecified 4. Clinically undetermined, no explanation for the clinical findings. In responding to this query, please exercise your independent professional judgment. The purpose of this communication is to more accurately reflect the complexity of your patients condition. The fact that a question is asked does not imply that any particular answer is desired or expected. Thank you for your timely response to this clarification. Requestors name: [ ] Phone # [ ] THIS PHYSICIAN QUERY FORM IS A PERMANENT PART OF THE MEDICAL RECORD ANGELIKA PRAJAPATI November 03, 2018 21:41
--- NOTE | 2018-11-20 12:30 | Short Stay Summary-Hospitalist ---
Short Stay Diagnosis D/C Date October 30, 2018 at 16:30 Upper GI bleed. 2.anemia secondary to number 1. Clinical Quality Measures DVT/VTE Risk/Contraindication: Risk Factor Score Per Nursin RFS Level Per Nursing on Admit: 4+=Very High BRANDON JOEL MD November 20, 2018 12:30
--- NOTE | 2018-12-08 12:14 | Discharge Summary-Hospitalist ---
Diagnosis/Chief Complaint Date of Admission October 29, 2018 at 14:24 Date of Discharge October 30, 2018 at 16:30 Discharge Date: October 30, 2018 Admission Diagnosis Upper GI bleed Discharge Diagnosis 1.significant anemia. 2.gastric ulcer and gastritis. Discharge Summary Discharge Physical Exam Allergies: Coded Allergies: codeine (Verified Allergy, Unknown, 04/08/18) General Appearance: No Apparent Distress Hospital Course Was the Problem List Reviewed?: Yes The patient was admitted with complaints of vomiting blood and dark stools. He reported that he become weak rather suddenly. While he was being evaluated prior to admission his hemoglobin was found to be 12.3. He was then admitted and by 7 hours later this had fallen to 9.5. He was evaluated by upper GI endoscopy and found to have gastritis and an active ulcer. He received 2 units of packed red blood cells. During his hospitalization he continued to exhibit bleeding and 5 Hemoglobin of 8.9. He Was stabilized and He Was Discharged for Outpatient Follow-Up. His medications and routines are as listed in the discharge sequence. Labs (last 24 hrs) Patient resulted labs reviewed. Discussion & Recommendations Discharge Planning: >30 minutes discharge planning Discharge Home Medications: Active Scripts Active Protonix (Pantoprazole Sodium) 40 Mg Granpkt.dr 40 Mg PO BID Carafate (Sucralfate) 1 Gm/10 Ml Oral.susp 1 Gm PO QID 30 Days Reported Melatonin 3 Mg Tablet 3 Mg PO HS Docusate Sodium 100 Mg Capsule 100 Mg PO 1200,2100 Trazodone HCl 100 Mg Tablet 300 Mg PO HS TAKES 3 (100MG) TABLETS Benazepril HCl 10 Mg Tablet 10 Mg PO DAILY Metoprolol Succinate 25 Mg Tab.er.24h 25 Mg PO 1730 Gabapentin 300 Mg Capsule 600 Mg PO HS TAKES 2 (300MG) CAPSULES Gabapentin 300 Mg Capsule 300 Mg PO 1730 Vitamin D3 (Cholecalciferol (Vitamin D3)) 1,000 Unit Capsule 1,000 Unit PO 1730 Fish Oil 1,000 mg Capsule (Henderson 3 Polyunsat Fatty Acids) 1,000 Mg Cap 1,000 Mg PO 1200 Complete Multivitamin (Multivits,Th W-Fe,Other Min) 1 Each Tablet 1 Tab PO DAILY Instructions to patient/family Please see electronic discharge instructions given to patient. Clinical Quality Measures DVT/VTE Risk/Contraindication: Risk Factor Score Per Nursin RFS Level Per Nursing on Admit: 4+=Very High BRANDON JOEL MD Dec 08, 2018 12:14
== END 2018-10-30 16:30 | disposition home or self-care (01) | DRG 378 ==
LOC: EDUNIT# 08:13 → ER 08:14 → UNDOADMOB 13:00 → 4TH 13:00 → OBSVTOIN 10-29 14:24 → INTOOBSV 10-29 14:24 → UNDODISIN 10-30 16:30
PROVIDERS: ADMIT Internal Medicine; ATTEND Internal Medicine
PROC: 0DJ08ZZ Inspection of Upper Intestinal Tract, Via Natural or Artificial Opening Endoscopic (ICD-10-PCS; principal; 2018-10-28 08:20)
DX: K29.71 Gastritis, unspecified, with bleeding (principal); K25.4 Chronic or unspecified gastric ulcer with hemorrhage; D62 Acute posthemorrhagic anemia; I25.10 Atherosclerotic heart disease of native coronary artery without angina pectoris; R00.0 Tachycardia, unspecified; R51 Headache; I10 Essential (primary) hypertension; E78.5 Hyperlipidemia, unspecified; R60.9 Edema, unspecified; I45.10 Unspecified right bundle-branch block; G62.9 Polyneuropathy, unspecified; J45.909 Unspecified asthma, uncomplicated; H91.90 Unspecified hearing loss, unspecified ear; Z80.0 Family history of malignant neoplasm of digestive organs; Z79.02 Long term (current) use of antithrombotics/antiplatelets; Z86.73 Personal history of transient ischemic attack (TIA), and cerebral infarction without residual deficits; Z79.82 Long term (current) use of aspirin; Z95.5 Presence of coronary angioplasty implant and graft; Z87.19 Personal history of other diseases of the digestive system
CPT/HCPCS: 36415; 36430; 74177; 80053; 81000; 82962; 83690; 85007; 85014; 85018; 85025; 85027; 85610; 85730; 86141; 86850; 86900; 86901; 86920; 93005; 96361; 96374; 96375; G0378

== ENCOUNTER 2018-12-23 15:33 | Outpatient (RCR) | payer MEDICARE, OTHER ==
[~2018-12-23 15:33] MED LIST changes: +AMLO5TAB9 PO; +BENA10TA9 PO; +CLOP75TA28 PO; +DOCU100C37 PO; +FURO20TA4 PO; +MELA3TAB PO; +METO-387 PO; +PANT40SU PO; +SUCR1ORA5 PO; +TRAZ-190 PO
== END 2019-01-27 09:55 | disposition home or self-care (01) ==
PROVIDERS: ATTEND Internal Medicine
DX: R26.81 Unsteadiness on feet (principal)

== ENCOUNTER 2019-01-13 11:07 | Outpatient (CLI) | payer MEDICARE, OTHER ==
[~2019-01-13] VITALS: Ht 175.3 cm; Wt 73.5 kg
[~2019-01-13 11:07] MED LIST changes: +BENA10TA7 PO; -BENA10TA9 PO
== END 2019-01-13 11:10 | disposition home or self-care (01) ==
LOC: PREOP 11:07
PROVIDERS: ATTEND Surgery
DX: Z01.818 Encounter for other preprocedural examination (principal)

== ENCOUNTER 2019-01-19 07:48 | Day surgery (SDC) | payer MEDICARE, OTHER ==
[~2019-01-19] VITALS: Ht 175.3 cm; Wt 73.5 kg
[2019-01-19] MEDS ORDERED: LACTATED RINGERS 1,000 ML IV ONE (07:52)
[2019-01-19 08:00] VITALS: BP 167/100
[2019-01-19] MEDS ORDERED: LACTATED RINGERS 1,000 ML IV STA (08:05)
[2019-01-19] MEDS ORDERED: HURRICAINE EXT TUBE (BENZOCAINE) XX PRN (08:15)
[2019-01-19] MEDS ORDERED: PROPOFOL INJECTION 50 ML IV ONE (08:28)
--- NOTE | 2019-01-19 09:12 | Progress Note-Post Operative ---
Post-Operative Progess Note Surgeon (s)/Blood Typer (s) Surgeon ANNIE BENZ DO Blood Typer: na Pre-Operative Diagnosis hx ulcer Post-Operative Diagnosis gastritis, small h/h Procedure & Operative Findings Date of Procedure 01/19/19 Procedure Performed/Findings egd c biopsy Anesthesia Type per picking belt operator Estimated Blood Loss Estimated blood loss (mL): none Specimens/Packing Specimens Removed antrum ANNIE BENZ DO Jan 19, 2019 09:12
--- NOTE | 2019-01-19 09:13 | Discharge Inst-Simple/Standard ---
Discharge Inst-Standard Patient Instructions/Follow Up Plan of Care/Instructions/FU: 2 weeks Reynaldo Activity as Tolerated: Yes Discharge Diet: Regular Diet ANNIE BENZ DO Jan 19, 2019 09:13
[2019-01-19 09:25] VITALS: BP 154/83
[2019-01-19 09:51] VITALS: BP 160/98
--- NOTE | 2019-01-19 14:09 | Anesthesia-General Post-Op ---
MAC Patient Condition Mental Status/LOC: Same as Preop Cardiovascular: Satisfactory Nausea/Vomiting: Absent Respiratory: Satisfactory Pain: Controlled Complications: Absent Post Op Complications Complications None Follow Up Care/Instructions Patient Instructions None needed. Anesthesiology Discharge Order Discharge Order Patient was seen this morning after the procedure and he was doing well, no complaints, stable vital signs, no apparent adverse anesthesia problems. AZEEM ARCE DO Jan 19, 2019 14:09
--- NOTE | 2019-01-19 14:10 | OPERATIVE REPORT ---
DATE OF SERVICE: 01/19/2019 PREOPERATIVE DIAGNOSIS: History of ulcer. POSTOPERATIVE DIAGNOSES: Gastritis, small hiatal hernia. PROCEDURE: EGD with biopsy. SURGEON: Annie Jacobs DO ANESTHESIA: Per PHARMACY CLERK. ESTIMATED BLOOD LOSS: None. COMPLICATIONS: None. INDICATIONS: The patient is an 88-year-old male with history of ulcer. The patient for reexamination and biopsy. The patient understands risks and benefits of procedure and wished to proceed with procedure. Consent was signed in the chart. DESCRIPTION OF PROCEDURE: The patient was taken to the endoscopy suite, placed in left lateral recumbent position. Timeout was performed. Scope was inserted in mouth, down the esophagus, stomach and into the duodenum without difficulty. There were no polyps, masses or ulcerations within the duodenum. Scope was slowly retracted back into the stomach where it was further insufflated. Slight erythematous changes consistent with slight gastritis was present. Biopsy of the antrum was obtained. Scope was retroflexed noting a small hiatal hernia, no other pathology. Scope was returned to its normal position, slowly withdrawn to the distal esophagus, which had normal appearance. No polyps, masses or ulcerations. Scope was slowly retracted back until completely removed. The patient tolerated procedure well without any complications, taken to recovery room in stable condition. RECOMMENDATIONS: The patient to continue on current medications. He will follow up in 2 weeks to discuss pathology results. Further recommendations pending results. Job ID: [id number] DocumentID: [id number] Dictated Date: 01/19/2019 09:15:40 [place] Date: 01/19/2019 14:09:54 Dictated By: ANNIE JACOBS DO [facility]
== END 2019-01-19 09:55 ==
LOC: ENDO 07:48
PROVIDERS: ATTEND Surgery
DX: Z09 Encounter for follow-up examination after completed treatment for conditions other than malignant neoplasm (principal); K29.50 Unspecified chronic gastritis without bleeding; K44.9 Diaphragmatic hernia without obstruction or gangrene; I10 Essential (primary) hypertension; I25.10 Atherosclerotic heart disease of native coronary artery without angina pectoris; J45.909 Unspecified asthma, uncomplicated; Z95.5 Presence of coronary angioplasty implant and graft; Z79.899 Other long term (current) drug therapy; Z86.73 Personal history of transient ischemic attack (TIA), and cerebral infarction without residual deficits

== ENCOUNTER → 2019-04-30 | Outpatient (CLI) | payer MEDICARE, OTHER ==
[~2019-04-30] MED LIST changes: -BENA10TA7 PO; +BENA10TA9 PO; +CATHETER FLUSH 10 ML SYR IV PRN; +HOLD METFORMIN - RECEIVED CONTRAST 20 ML VIAL IV SCH; +IOHEXOL 350 MG/ML 100 ML (OMNIPAQUE 350) VIAL IV ONE; +NS 100 ML (IVPB) BAG IV ONE
[2019-04-30 08:56] LABS: BUN/CREATININE RATIO 14; CREATININE SERUM 1.09 MG/DL (0.60-1.30); GFR ESTIMATED > 60
--- NOTE | 2019-04-30 17:35 | Diagnostic Imaging Report ---
PROCEDURE: CT angiography of the chest with contrast. TECHNIQUE: Multiple contiguous axial images were obtained through the chest after uneventful bolus administration of intravenous contrast. 3D reconstructed CTA MIP acquisitions were also performed. Auto Exposure Controls were utilized during the CT exam to meet ALARA standards for radiation dose reduction. DATE: April 30, 2019. COMPARISON: Chest radiograph April 08, 2018. INDICATION: 88-year-old male, history of carotid stenosis and edema. No additional provided history. FINDINGS: There is mild dependent atelectasis. There is no pulmonary nodule or lung mass. There is no additional focal airspace consolidation. There is no pneumothorax. There is no pleural effusion. There is no identifiable pulmonary embolus. The main pulmonary artery is normal in caliber. There are coronary artery calcifications. There are additional areas of atherosclerotic disease. There is no pericardial effusion. There is no identified mediastinal, hilar, or axillary lymph node which meets CT size criteria for adenopathy. There are low-attenuation bilateral renal lesions diagnostic for benign cysts. Additional imaging evaluation of the upper abdomen is unremarkable. There are degenerative changes of the spine. There is exaggeration of the normal thoracic kyphosis. There is no identified acute bony abnormality. IMPRESSION: CT CHEST. 1. No identified acute cardiopulmonary abnormality. 2. Benign bilateral renal cysts. Dictated on workstation # [id number]
== END ==
LOC: RAD 07:34
PROVIDERS: ATTEND Physician Assistant
DX: N28.1 Cyst of kidney, acquired (principal); I65.29 Occlusion and stenosis of unspecified carotid artery; I10 Essential (primary) hypertension; E78.2 Mixed hyperlipidemia; R60.9 Edema, unspecified
CPT/HCPCS: 36415; 71275; 82565; 84520

== ENCOUNTER → 2019-05-04 | Outpatient (CLI) | payer MEDICARE, OTHER ==
[~2019-05-04] MED LIST changes: -CATHETER FLUSH 10 ML SYR IV PRN; -IOHEXOL 350 MG/ML 100 ML (OMNIPAQUE 350) VIAL IV ONE; +IOHEXOL 350 MG/ML 150 ML (OMNIPAQUE 350) VIAL IV ONE
--- NOTE | 2019-05-04 10:31 | Diagnostic Imaging Report ---
EXAMINATION: CT angiography aorta and lower extremity with runoffs. TECHNIQUE: Multiple contiguous axial images were obtained through the abdomen , pelvis and lower extremities after administration of intravenous contrast. 3D MIP reconstructed CTA acquisition were then performed. All CT scans use one or more of the following dose optimizing techniques: automated exposure control, MA and/or KvP adjustment based on a patient size and exam type, or iterative reconstruction. INDICATION: Hypertension and hyperlipidemia with leg swelling. COMPARISON: None available. FINDINGS: Vascular findings: Abdominal aorta: No stenosis. Celiac artery: No stenosis. Superior mesenteric artery: No stenosis. Right renal artery: No stenosis. There are two accessory right renal arteries. Left renal artery: No stenosis. There is an accessory left renal artery. Inferior mesenterica artery: No stenosis. Right common iliac artery: No stenosis. Right external iliac artery: No stenosis. Right common femoral artery: No stenosis. Right superficial femoral artery: No stenosis. Right deep femoral artery: No stenosis. Right popliteal artery: No stenosis. Left common iliac artery: No stenosis. Left external iliac artery: No stenosis. Left common femoral artery: No stenosis. Left superficial femoral artery: No stenosis. Left deep femoral artery: No stenosis. Left popliteal artery: No stenosis. The distal lower extremity vessels are not opacified at the time of the scan and is thus not evaluated. Other findings: Limited views of the lower thorax reveal dilation of the right ventricle. The liver is normal without focal lesion. There is no biliary ductal dilation. Gallbladder is normal. Pancreas is normal. Spleen is normal. Adrenal glands are normal. The kidneys are normal with the exception of a few simple cysts. There is no hydronephrosis. Urinary bladder is normal. There are no dilated loops of large or small bowel. No obstruction or inflammation. No free fluid or air. No abdominal or pelvic lymphadenopathy. There are no suspicious osseus lesions. IMPRESSION: 1. No stenosis in the aortocaval, iliac or femoral vessels to the level of the popliteal arteries. The distal lower extremity vessels are not opacified at the time of exam and are thus not evaluated. 2. Dilated right ventricle. Dictated by: Dictated on workstation # [id number]
== END ==
LOC: RAD 08:47
PROVIDERS: ATTEND Physician Assistant
DX: I65.29 Occlusion and stenosis of unspecified carotid artery (principal); I11.9 Hypertensive heart disease without heart failure; I51.7 Cardiomegaly; E78.2 Mixed hyperlipidemia
CPT/HCPCS: 75635

== ENCOUNTER → 2019-11-16 | Outpatient (CLI) | payer MEDICARE, OTHER ==
[~2019-11-16] MED LIST changes: +BENA10TA66 PO; -BENA10TA9 PO; -HOLD METFORMIN - RECEIVED CONTRAST 20 ML VIAL IV SCH; -IOHEXOL 350 MG/ML 150 ML (OMNIPAQUE 350) VIAL IV ONE; -MELA3TAB PO; +MELA3TAB39 PO; -METO-387 PO; +MTP25TSR PO; -NS 100 ML (IVPB) BAG IV ONE; -TRAZ-190 PO; -TRAZ-222 PO; +TRAZ-227 PO; +TRZ50T PO
--- NOTE | 2019-11-16 08:37 | Diagnostic Imaging Report ---
PROCEDURE: CT head without contrast. TECHNIQUE: Multiple contiguous axial images were obtained through the brain without the use of intravenous contrast. Auto Exposure Controls were utilized during the CT exam to meet ALARA standards for radiation dose reduction. INDICATION: Headache. FINDINGS: There is prominence of ventricles and sulci. There is chronic microvascular ischemic disease. There is no hydrocephalus. There is no midline shift. There is no mass, hemorrhage or extra-axial fluid collection. There is complete opacification of the frontal sinuses and left maxillary sinus. Opacification of the ethmoid air cells and to a lesser degree the sphenoid sinus. Mastoid air cells are clear. IMPRESSION: Atrophy and some chronic microvascular ischemic disease however no acute intracranial abnormality Moderately severe sinus disease as described. Dictated by: Dictated on workstation # [id number]
== END ==
LOC: RAD 08:04
PROVIDERS: ATTEND Internal Medicine
DX: I67.82 Cerebral ischemia (principal); G31.9 Degenerative disease of nervous system, unspecified
CPT/HCPCS: 70450

== ENCOUNTER → 2020-01-18 | Outpatient (CLI) | payer MEDICARE, OTHER ==
--- NOTE | 2020-01-18 08:46 | Diagnostic Imaging Report ---
INDICATION: COUGH WHEEZING COMPARISON: 04/08/2018 FINDINGS: Frontal and lateral views of the chest demonstrate normal heart size and pulmonary vascularity. The lungs are clear. There are no signs of infiltrate, pleural effusions or pneumothoraces. The visualized osseous structures show no acute abnormalities. IMPRESSION: 1. No acute process. No signs of infiltrates, effusions or pneumothoraces. Dictated by: Dictated on workstation # [id number]
== END ==
LOC: RAD 08:09
PROVIDERS: ATTEND Physician Assistant
DX: R05 Cough (principal); R06.2 Wheezing
CPT/HCPCS: 71046

== ENCOUNTER → 2020-01-18 | Outpatient (CLI) | payer MEDICARE, OTHER | LOC: LABNPT 06:23 | PROVIDERS: ATTEND Physician Assistant | DX: R05 Cough (principal); R06.2 Wheezing; Z20.828 Contact with and (suspected) exposure to other viral communicable diseases | CPT/HCPCS: 87635 ==

== ENCOUNTER → 2020-01-25 | Outpatient (CLI) | payer MEDICARE, OTHER ==
[~2020-01-25] MED LIST changes: +CATHETER FLUSH 10 ML SYR IV PRN; +HOLD METFORMIN - RECEIVED CONTRAST 20 ML VIAL IV SCH; +IOHEXOL 350 MG/ML 100 ML (OMNIPAQUE 350) VIAL IV ONE; +NS 100 ML (IVPB) BAG IV ONE
[2020-01-25 16:53] LABS: BUN/CREATININE RATIO 18; CREATININE SERUM 1.13 MG/DL (0.60-1.30); GFR ESTIMATED > 60
--- NOTE | 2020-01-25 17:55 | Diagnostic Imaging Report ---
PROCEDURE: CT chest with contrast only. TECHNIQUE: Multiple contiguous axial images were obtained through the chest after administration of intravenous contrast. Auto Exposure Controls were utilized during the CT exam to meet ALARA standards for radiation dose reduction. INDICATION: Cough, wheezing and shortness of air. COMPARISON: Comparison is made with recent chest radiograph from 01/18/2020. FINDINGS: No axillary lymphadenopathy is detected. No definite mediastinal or hilar lymphadenopathy is identified. Asymmetric thoracic aorta is approximately 4.0 cm AP diameter, stable when compared with CT chest from 04/30/2019. No pericardial or pleural fluid is identified. The central airways appear to be patent. The lungs appear clear of acute infiltrates. No mass is identified. There is a micronodule right middle lobe proximally 2 mm in size. Upper abdomen demonstrates bilateral renal low density masses consistent with cysts. Bony structures are nonacute. IMPRESSION: Essentially unremarkable CT of the chest. No acute feature is detected. Dictated by: Dictated on workstation # [id number]
== END ==
LOC: RAD 16:19
PROVIDERS: ATTEND Physician Assistant
DX: R05 Cough (principal); R06.02 Shortness of breath; R06.2 Wheezing
CPT/HCPCS: 36415; 71260; 82565; 84520

== ENCOUNTER → 2020-01-26 | Outpatient (CLI) | payer MEDICARE, OTHER ==
[~2020-01-26] MED LIST changes: -CATHETER FLUSH 10 ML SYR IV PRN; -HOLD METFORMIN - RECEIVED CONTRAST 20 ML VIAL IV SCH; -IOHEXOL 350 MG/ML 100 ML (OMNIPAQUE 350) VIAL IV ONE; -NS 100 ML (IVPB) BAG IV ONE; +RT-ALBUTEROL SULF 2.5 MG/3 ML PRE-MIX VIAL INH ONE
== END ==
LOC: RT 09:57
PROVIDERS: ATTEND Physician Assistant
DX: R05 Cough (principal); R06.02 Shortness of breath
CPT/HCPCS: 94060; 94726; 94729

== ENCOUNTER → 2020-08-31 | Outpatient (CLI) | payer MEDICARE, OTHER ==
[~2020-08-31] MED LIST changes: +AMLO-250 PO; -AMLO5TAB9 PO; +ASPI-1238 PO; -ASPI-983 PO; -RT-ALBUTEROL SULF 2.5 MG/3 ML PRE-MIX VIAL INH ONE
--- NOTE | 2020-08-31 15:16 | Diagnostic Imaging Report ---
PROCEDURE: CT head without contrast. TECHNIQUE: Multiple contiguous axial images were obtained through the brain without the use of intravenous contrast. Auto Exposure Controls were utilized during the CT exam to meet ALARA standards for radiation dose reduction. INDICATION: Fall with headache and disequilibrium. COMPARISON: 11/16/2019. FINDINGS: Ventricles and sulci are diffusely prominent. No intracranial hemorrhage is identified. There is no abnormal mass effect or shift of midline structures. Calvarium is intact. There is mural thickening throughout ethmoid air cells, sphenoid sinuses and maxillary sinuses with near complete opacification of the right frontal sinus. IMPRESSION: Stable senescent findings in the brain and chronic-appearing pansinusitis. Dictated by: Dictated on workstation # [id number]
[2020-08-31 15:18] LABS: HEMOGLOBIN 13.4 g/dL (13.3-17.7)
[2020-08-31 15:24] LABS: ALBUMIN 4.5 GM/DL (3.2-4.5); POTASSIUM 3.9 MMOL/L (3.6-5.0)
[2020-08-31 15:26] LABS: CALCIUM 9.2 MG/DL (8.5-10.1)
[2020-08-31 15:27] LABS: TOTAL PROTEIN 7.6 GM/DL (6.4-8.2)
[2020-08-31 15:29] LABS: BILIRUBIN,TOTAL 0.6 MG/DL (0.1-1.0)
[2020-08-31 15:31] LABS: CREATININE SERUM 1.22 MG/DL (0.60-1.30)
[2020-08-31 15:33] LABS: BILIRUBIN,URINE NEGATIVE (NEGATIVE); CLARITY,URINE CLEAR; COLOR,URINE YELLOW; GLUCOSE, URINE (UA) NEGATIVE (NEGATIVE); KETONES,URINE NEGATIVE (NEGATIVE); LEUKOCYTE ESTERASE ,URINE NEGATIVE (NEGATIVE); NITRITE,URINE NEGATIVE (NEGATIVE); PH,URINE 6.5 (5-9); PROTEIN,URINE NEGATIVE (NEGATIVE)
[2020-08-31 15:53] LABS: BACTERIA,URINE NEGATIVE /HPF; SQUAMOUS EPITHELIAL CELL,UR RARE /HPF
== END ==
LOC: RAD 14:50
PROVIDERS: ATTEND Physician Assistant
DX: R51.9 Headache, unspecified (principal); W19.XXXA Unspecified fall, initial encounter
CPT/HCPCS: 36415; 70450; 80053; 81000; 85027

== ENCOUNTER → 2020-10-03 | Outpatient (CLI) | payer MEDICARE, OTHER ==
--- NOTE | 2020-10-03 16:18 | Diagnostic Imaging Report ---
INDICATION: Cough, wheezing. COMPARISON: 01/18/2020 FINDINGS: Frontal and lateral views of the chest demonstrate normal heart size and pulmonary vascularity. The lungs are clear. There are no signs of infiltrate, pleural effusions or pneumothoraces. The visualized osseous structures show no acute abnormalities. IMPRESSION: 1. No acute process. No signs of infiltrates, effusions or pneumothoraces. Dictated by: Dictated on workstation # [id number]
== END ==
LOC: RAD 14:40
PROVIDERS: ATTEND Physician Assistant
DX: R05 Cough (principal); R06.2 Wheezing
CPT/HCPCS: 71046

== ENCOUNTER → 2020-10-06 | Outpatient (CLI) | payer MEDICARE, OTHER ==
[~2020-10-06] MED LIST changes: +GADOBUTROL 7.5 MMOL/7.5 ML (GADAVIST) VIAL IV ONE
--- NOTE | 2020-10-06 12:16 | Diagnostic Imaging Report ---
PROCEDURE: MR imaging of the brain with and without contrast. TECHNIQUE: Multiplanar, multisequence MR imaging of the brain was performed with and without contrast. INDICATION: Headache and lightheadedness. No prior MRI brain study is available for comparison. Ventricles and sulci are prominent consistent with the patient's age. Periventricular white matter changes are noted consistent with senescent change. No diffusion restriction is identified. The normal expected flow-voids within the carotid siphons are seen. No abnormal enhancement following contrast administration is identified. Corpus callosum is unremarkable. The sella and parasellar structures are unremarkable. There is mild mucosal thickening of the left maxillary sinus. IMPRESSION: Senescent changes. No acute intracranial process is detected. Dictated by: Dictated on workstation # [id number]
== END ==
LOC: RAD 08:52
PROVIDERS: ATTEND Physician Assistant
DX: R51.9 Headache, unspecified (principal); R42 Dizziness and giddiness
CPT/HCPCS: 70553

== ENCOUNTER → 2020-12-20 | Outpatient (CLI) | payer MEDICARE, OTHER ==
[~2020-12-20] MED LIST changes: -GADOBUTROL 7.5 MMOL/7.5 ML (GADAVIST) VIAL IV ONE
== END ==
LOC: CARD 14:00
PROVIDERS: ATTEND Physician Assistant
DX: I10 Essential (primary) hypertension (principal); I34.0 Nonrheumatic mitral (valve) insufficiency
CPT/HCPCS: 93306

== ENCOUNTER → 2021-05-22 | Outpatient (CLI) | payer MEDICARE, OTHER ==
[~2021-05-22] MED LIST changes: +GADOTERATE 0.5 MMOL/ML (CLARISCAN) 15 ML VIAL IV ONE
--- NOTE | 2021-05-22 10:45 | Diagnostic Imaging Report ---
INDICATION: Pneumonia. COMPARISON: Exam compared to 10/03/2020. FINDINGS: The lungs are clear. There is no failure, effusion, or pneumothorax. There has been no change from prior. Some midthoracic kyphosis and endplate irregularity at the mid T-spine, stable. IMPRESSION: Stable chronic findings. No acute-appearing abnormality or change from priors. Dictated by: Dictated on workstation # [id number]
--- NOTE | 2021-05-22 14:04 | Diagnostic Imaging Report ---
PROCEDURE: MR imaging of the brain with and without contrast. TECHNIQUE: Multiplanar, multisequence MR imaging of the brain was performed with and without contrast. INDICATION: Daily headaches. Fatigue. Weakness. COMPARISON: 10/06/2020. FINDINGS: No acute ischemia, mass, or hemorrhage. No abnormal enhancement is seen. Small amount of chronic microvascular disease is seen in the periventricular and subcortical white matter. The ventricles and cortical sulci are prominent. The basilar cisterns are symmetric and unremarkable. The sellar and suprasellar regions have a normal appearance. The major intracranial flow voids are intact. The brainstem and posterior fossa are unremarkable. Retained secretions are seen in the left maxillary sinus with mild mucosal thickening in the bilateral ethmoid sinuses. There is complete opacification of the left sphenoid sinus. Small left-sided mastoid effusion is present. Right-sided lens implant is seen. The scalp and calvarium have a normal appearance. IMPRESSION: 1. No acute ischemia, mass, or hemorrhage. 2. Scattered chronic microvascular disease with generalized parenchymal volume loss. 3. Paranasal sinus disease with possible acute sinusitis involving the left sphenoid and maxillary sinuses. Dictated by: Dictated on workstation # [id number]
== END ==
LOC: RAD 09:32
PROVIDERS: ATTEND Physician Assistant
DX: J18.9 Pneumonia, unspecified organism (principal); J34.89 Other specified disorders of nose and nasal sinuses; R53.1 Weakness
CPT/HCPCS: 70553; 71046

== ENCOUNTER → 2021-06-19 | Outpatient (CLI) | payer MEDICARE, OTHER ==
[~2021-06-19] MED LIST changes: -GADOTERATE 0.5 MMOL/ML (CLARISCAN) 15 ML VIAL IV ONE
--- NOTE | 2021-06-19 11:32 | Diagnostic Imaging Report ---
Clinical indications: Patient fell on 06/11 bruising noted to right eye. Closed head Injury. Patient complains of shortness of breath and cough and rib and right shoulder pain. Exam: Axial Head CT without IV contrast with sagittal and coronal reformations. Axial Maxillofacial CT scan without IV contrast with sagittal and coronal reformations. Auto Exposure Controls were utilized during the CT exam to meet ALARA standards for radiation dose reduction. Comparison: MRI of the brain without and with contrast dated 05/22/2021. Head CT without contrast dated 08/31/2020. Findings: Head and maxillofacial CT: There is no evidence of acute cerebral infarct, intracranial hemorrhage, or gross mass effect. The brain parenchymal volume appears appropriate for patient's age. 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 There is normal hong-white matter distinction. There is no significant midline shift or herniation. There is no evidence of hydrocephalus. The basal cisterns are unremarkable. There is no skull or maxillofacial fracture. The skull, extracranial soft tissue, and orbits are unremarkable. There is moderate consolidation involving the left side of the sphenoid sinus. There is moderate lobulated mucosal thickening involving left maxillary sinus. There is mild mucosal thickening involving ethmoid sinus. There is mild mucosal thickening involving the frontal sinus. Temporal bones show no significant abnormality. Impression: 1: There is no evidence of acute intracranial process. There is no intracranial hemorrhage or skull fracture. 2: There is no maxillofacial fracture. 3: Age related brain parenchymal changes. 4: Paranasal sinus disease. Dictated by: Dictated on workstation # [id number]
--- NOTE | 2021-06-19 11:36 | Diagnostic Imaging Report ---
INDICATION: Right shoulder pain. TECHNIQUE: AP, oblique, and transscapular views of the right shoulder were obtained. FINDINGS: No acute fracture is identified. There is mild elevation of the distal clavicle with respect to the acromion indicating at least grade 1 separation. There is marginal spurring indicating a possible nonacute nature. No lytic or sclerotic lesion is identified. IMPRESSION: Probable grade 1 acromioclavicular separation of indeterminate age. Clinical correlation to site of pain would be useful. Otherwise, no acute abnormality is seen in the right shoulder. 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 Dictated by: Dictated on workstation # [id number]
--- NOTE | 2021-06-19 12:11 | Diagnostic Imaging Report ---
Clinical indications: Patient fell on 06/11 with bruising noted to right eye. Patient with closed head injury. Patient shortness of breath, cough and rib and right shoulder pain. EXAM: Axial CT scan of the chest performed without IV contrast with sagittal and coronal reformatted images. Auto Exposure Controls were utilized during the CT exam to meet ALARA standards for radiation dose reduction. COMPARISON: Chest x-ray dated 05/22/2021. Chest CT with contrast dated 01/25/2020. FINDINGS: There is minimal atelectasis and/or scarring involving the middle lobe lung base region and lingular lung base region. Otherwise, lungs are clear. There is no pleural effusion or pneumothorax. There is no mediastinal or hilar lymphadenopathy. There is mild prominence of the ascending thoracic aorta measuring roughly 3.9 cm. There is no axillary lymphadenopathy. The visualized portions of the thyroid gland is unremarkable. Bronchi are unremarkable. There is no fracture of the rib cage, sternum, or shoulder bones as visualized. The bilateral AC joints are not imaged on this exam. There is no thoracic spine fracture. There are hypertrophic spurs involving the thoracic spine. Limited visualization upper abdominal structures show no acute finding. There is partially visualized likely exophytic left renal cyst measuring at least 4.5 cm in AP dimension. IMPRESSION: 1: There is no evidence of acute thoracic findings or traumatic finding. There is no bone fracture or chest wall fracture. There is no pneumothorax or pleural effusion. 2: There is minimal bibasilar atelectasis. Otherwise, lungs are clear. 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 4: Partially visualized left renal cyst. Dictated by: Dictated on workstation # [id number]
== END ==
LOC: RAD 11:00
PROVIDERS: ATTEND Physician Assistant
DX: G31.1 Senile degeneration of brain, not elsewhere classified (principal); S09.90XA Unspecified injury of head, initial encounter; J34.89 Other specified disorders of nose and nasal sinuses; N28.1 Cyst of kidney, acquired; W19.XXXA Unspecified fall, initial encounter
CPT/HCPCS: 70450; 70486; 71250; 73030

== ENCOUNTER → 2021-08-31 | Outpatient (CLI) | payer MEDICARE, OTHER ==
[~2021-08-31] VITALS: Ht 175 cm; Wt 75.0 kg
[~2021-08-31] MED LIST changes: +CATHETER FLUSH 10 ML SYR IVP PRN; +REGADENOSON 0.4 MG/5 ML SYR (LEXISCAN) IV ONE
[2021-08-31 07:46] VITALS: BP 153/92
--- NOTE | 2021-08-31 17:11 | Cardiology Stress Test Report ---
Stress Test Report Date of Procedure/Referring: Date of Procedure: Aug 31, 2021 Essence Govea Admitting Physician Emerson Nuñez MD Indications: HTN Baseline Heart Rate: 70 Baseline Blood Pressure: Blood Pressure Systolic: 153 Blood Pressure Diastolic: 92 Baseline Vitals Vital Signs Date Time Temp Pulse Resp B/P (MAP) Pulse Ox O2 Delivery O2 Flow Rate FiO2 08/31/21 07:46 70 153/92 (112) Baseline EKG: Baseline EKG: NSR Summary After explaining the procedure to the patient, he signed a consent and then brought to the stress nuclear laboratory. Patient received 0.4 mg Lexiscan for stress test, ECG, heart rate and blood pressure were monitored continuously. Resting and stress dose of radio tracer w ere injected, imaging was acquired and reviewed in short axis, horizontal long axis and vertical long axis views. TID: 1.14 SSS: 4 SDS: 0 EF: 56 1. Patient tolerated Lexiscan well 2. Diaphragmatic attenuation with fixed defect at the apex and inferoapical segment with no significant ischemia or infarction 3. Normal left ventricular size, normal contractility, EF 56% ANAMIKA GRIMES MD Aug 31, 2021 17:11
== END ==
LOC: CARD 07:00
PROVIDERS: ATTEND Physician Assistant
DX: I25.10 Atherosclerotic heart disease of native coronary artery without angina pectoris (principal); I10 Essential (primary) hypertension
CPT/HCPCS: 78452; 93017; A9502

== ENCOUNTER → 2021-09-18 | Outpatient (CLI) | payer MEDICARE, OTHER ==
[~2021-09-18] MED LIST changes: -CATHETER FLUSH 10 ML SYR IVP PRN; -REGADENOSON 0.4 MG/5 ML SYR (LEXISCAN) IV ONE
--- NOTE | 2021-09-18 10:20 | Diagnostic Imaging Report ---
CLINICAL INDICATION: Patient with shoulder pain. EXAM: X-ray of the right shoulder, 3 views. COMPARISON: X-ray of the right shoulder dated 06/19/2021. FINDINGS: There is no acute fracture or dislocation. There is moderately hypertrophic spurs involving the right acromioclavicular region. There are hypertrophic subacromial spurs noted which appear progressed or more visualized on this exam. There is widening of the right AC joint of 12 mm which has progressed in the interim. This may be related to AC injury, erosive arthropathy or postop changes. There are degenerative spurs involving the glenoid rim. IMPRESSION: 1: There is interval widening of the right AC joint which may be related to AC separation/injury versus erosive arthropathy versus postop changes. 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 Dictated by: Dictated on workstation # [id number]
== END ==
LOC: RAD 09:45
PROVIDERS: ATTEND Nurse Practitioner Family
DX: M19.011 Primary osteoarthritis, right shoulder (principal)
CPT/HCPCS: 73030

== ENCOUNTER → 2022-03-27 | Outpatient (CLI) | payer MEDICARE, OTHER | LOC: CARD 10:49 | PROVIDERS: ATTEND Physician Assistant | DX: I10 Essential (primary) hypertension (principal) | CPT/HCPCS: 93306 ==

== ENCOUNTER → 2022-03-29 | Outpatient (CLI) | payer MEDICARE, OTHER ==
--- NOTE | 2022-03-29 12:47 | Diagnostic Imaging Report ---
INDICATION: COUGH COPD COMPARISON: 05/22/2021 FINDINGS: Frontal and lateral views of the chest demonstrate normal heart size and pulmonary vascularity. The lungs are clear. There are no signs of infiltrate, pleural effusions or pneumothoraces. The visualized osseous structures show no acute abnormalities. IMPRESSION: 1. No acute process. No signs of infiltrates, effusions or pneumothoraces. Dictated by: Dictated on workstation # [id number]
== END ==
LOC: RAD 10:53
PROVIDERS: ATTEND Physician Assistant
DX: J44.9 Chronic obstructive pulmonary disease, unspecified (principal)
CPT/HCPCS: 71046

== ENCOUNTER → 2022-08-14 | Outpatient (CLI) | payer MEDICARE, OTHER ==
--- NOTE | 2022-08-14 14:41 | Diagnostic Imaging Report ---
PROCEDURE: CT head without contrast. TECHNIQUE: Multiple contiguous axial images were obtained through the brain without the use of intravenous contrast. Auto Exposure Controls were utilized during the CT exam to meet ALARA standards for radiation dose reduction. INDICATION: Trauma. Fall. Worsening of balance. COMPARISON: CT head without contrast 06/19/2021. MRI brain 05/22/2021. FINDINGS: Moderate to advanced generalized parenchymal volume loss. No CT evidence of an acute territorial infarction. No intracranial hemorrhage, mass effect, hydrocephalus or extra-axial fluid collections. Osseous structures are intact. Mucosal thickening in the left maxillary, left sphenoid and bilateral ethmoid sinuses. Mastoids are clear. IMPRESSION: 1. No acute intracranial CT findings. 2. Paranasal sinus disease as above. Dictated by: Dictated on workstation # [id number]
== END ==
LOC: RAD 14:30
PROVIDERS: ATTEND Nurse Practitioner Family
DX: S09.90XA Unspecified injury of head, initial encounter (principal); J34.89 Other specified disorders of nose and nasal sinuses; W19.XXXA Unspecified fall, initial encounter
CPT/HCPCS: 70450